=== PATIENT | male | born 1950 | race Caucasian/White ===

== ENCOUNTER → 2019-03-28 14:16 | Outpatient (BNVA) | payer MEDICARE, OTHER, SELFPAY | PROVIDERS: Family Provider Internal Medicine; PCP Internal Medicine; Visit Provider Urology | DX: N39.9 Disorder of urinary system, unspecified (principal); N32.9 Bladder disorder, unspecified; R33.8 Other retention of urine | CPT/HCPCS: 81001 ==

== ENCOUNTER → 2019-09-26 14:07 | Outpatient (BNVA) | payer MEDICARE, OTHER, SELFPAY | PROVIDERS: Family Provider Internal Medicine; PCP Internal Medicine; Visit Provider Urology | DX: N32.9 Bladder disorder, unspecified (principal) | CPT/HCPCS: 81001 ==

== ENCOUNTER → 2020-06-11 15:07 | Outpatient (BNVA) | payer MEDICARE, OTHER, SELFPAY | PROVIDERS: PCP Internal Medicine; Visit Provider Urology | DX: N32.9 Bladder disorder, unspecified (principal); N40.1 Benign prostatic hyperplasia with lower urinary tract symptoms; N20.1 Calculus of ureter | CPT/HCPCS: 81003 ==

== ENCOUNTER → 2020-12-04 08:56 | Outpatient (BNVA) | payer MEDICARE, OTHER, SELFPAY | PROVIDERS: PCP Internal Medicine; Visit Provider Internal Medicine Rheumatology | DX: M05.79 Rheumatoid arthritis with rheumatoid factor of multiple sites without organ or systems involvement (principal); Z79.899 Other long term (current) drug therapy; C44.221 Squamous cell carcinoma of skin of unspecified ear and external auricular canal; Z11.59 Encounter for screening for other viral diseases; Z11.1 Encounter for screening for respiratory tuberculosis; D75.9 Disease of blood and blood-forming organs, unspecified; Z71.85 Encounter for immunization safety counseling | CPT/HCPCS: 99204 ==

== ENCOUNTER → 2021-03-17 11:07 | Outpatient (BNVA) | payer MEDICARE, OTHER, SELFPAY | PROVIDERS: PCP Internal Medicine; Visit Provider Internal Medicine Rheumatology | DX: M05.79 Rheumatoid arthritis with rheumatoid factor of multiple sites without organ or systems involvement (principal); N40.1 Benign prostatic hyperplasia with lower urinary tract symptoms; N32.9 Bladder disorder, unspecified; Z79.899 Other long term (current) drug therapy; Z79.52 Long term (current) use of systemic steroids; Z71.85 Encounter for immunization safety counseling | CPT/HCPCS: 81003; 88112; 99214 ==

== ENCOUNTER → 2021-07-07 13:22 | Outpatient (BNVA) | payer MEDICARE, OTHER, SELFPAY | PROVIDERS: PCP Internal Medicine; Visit Provider Internal Medicine Rheumatology | DX: M05.79 Rheumatoid arthritis with rheumatoid factor of multiple sites without organ or systems involvement (principal); Z79.899 Other long term (current) drug therapy; M17.0 Bilateral primary osteoarthritis of knee; Z71.85 Encounter for immunization safety counseling | CPT/HCPCS: 99214 ==

== ENCOUNTER → 2021-10-22 13:53 | Outpatient (BNVA) | payer MEDICARE, OTHER, SELFPAY | PROVIDERS: PCP Internal Medicine; Visit Provider Internal Medicine Rheumatology | DX: M05.79 Rheumatoid arthritis with rheumatoid factor of multiple sites without organ or systems involvement (principal); Z79.899 Other long term (current) drug therapy; Z71.85 Encounter for immunization safety counseling; M17.0 Bilateral primary osteoarthritis of knee | CPT/HCPCS: 99214 ==

== ENCOUNTER → 2021-12-09 13:17 | Outpatient (BNVA) | payer MEDICARE, OTHER, SELFPAY | PROVIDERS: PCP Internal Medicine; Visit Provider Urology | DX: N40.1 Benign prostatic hyperplasia with lower urinary tract symptoms (principal); N32.9 Bladder disorder, unspecified | CPT/HCPCS: 52000; 81003 ==

== ENCOUNTER → 2022-02-24 14:29 | Outpatient (BNVA) | payer MEDICARE, OTHER, SELFPAY | PROVIDERS: PCP Internal Medicine; Visit Provider Internal Medicine Rheumatology | DX: M05.79 Rheumatoid arthritis with rheumatoid factor of multiple sites without organ or systems involvement (principal); Z79.899 Other long term (current) drug therapy; Z71.85 Encounter for immunization safety counseling; M17.0 Bilateral primary osteoarthritis of knee | CPT/HCPCS: 99214 ==

== ENCOUNTER → 2022-03-23 11:40 | Outpatient (BNVA) | payer MEDICARE, OTHER, SELFPAY | PROVIDERS: PCP Internal Medicine; Referring Provider Internal Medicine; Visit Provider Student in an Organized Health Care Education/Training Program | DX: M17.0 Bilateral primary osteoarthritis of knee (principal) | CPT/HCPCS: 73560; 73565; 99204 ==

== ENCOUNTER → 2022-05-26 14:39 | Outpatient (BNVA) | payer MEDICARE, OTHER, SELFPAY | PROVIDERS: PCP Internal Medicine; Visit Provider Internal Medicine Rheumatology | DX: M05.79 Rheumatoid arthritis with rheumatoid factor of multiple sites without organ or systems involvement (principal); Z79.899 Other long term (current) drug therapy; Z71.85 Encounter for immunization safety counseling; M17.0 Bilateral primary osteoarthritis of knee | CPT/HCPCS: 99214 ==

== ENCOUNTER 2022-05-27 13:38 | Outpatient (CLI) | payer MEDICARE, OTHER, SELFPAY ==
--- NOTE | 2022-05-27 14:00 | CT_ITS ---
WS: [id number] CT LEFT KNEE, NONCONTRAST TECHNIQUE: Noncontrast CT of the LEFT knee to include the LEFT hip and ankle. CLINICAL INFORMATION: Left DJD COMPARISON: None. DLP: 1019.[address] scans at [facility] use at least one of these dose optimization techniques: automated e xposure control; mA and/or kV adjustment per patient size (includes targeted exams where dose is matc hed to clinical indication); or iterative reconstruction. FINDINGS: Osteopenia. Advanced tricompartmental arthritis LEFT knee worse in the medial joint compartment with [id number] articulation. Hypertrophic changes along the joint line. Small suprapatellar effusion. H ypertrophic patella. Urine distended bladder. Small cystocele. Sigmoid diverticulosis. Bladder diverticuli along the RIGHT anterior dome of the bladder. These are present in 2019 on the pr ior CT. Largest diverticulum measures approximately 4.5 CM and appears new or progressed compared to previous. Associated wall thickening. This can be further evaluated with cystoscopy. Vascular calcifi cation. CT/CT knee LT HE IMPRESSION: Progressed bladder diverticuli the largest measuring 4.5 CM. Consid er further evaluation with cystoscopy. Associated diverticulum with wall thicke benjamín and enhancement. Images obtained for preoperative purposes.
== END 2022-05-27 13:39 | disposition home or self-care (01) ==
LOC: RAD 13:44
PROVIDERS: PCP Internal Medicine; Visit Provider Student in an Organized Health Care Education/Training Program
DX: M17.12 Unilateral primary osteoarthritis, left knee (principal)
CPT/HCPCS: 73700

== ENCOUNTER 2022-06-01 13:01 | Outpatient (CLI) | payer MEDICARE, OTHER, SELFPAY | END 2022-06-01 13:02 | disposition home or self-care (01) | PROVIDERS: PCP Internal Medicine; Visit Provider Student in an Organized Health Care Education/Training Program | DX: Z01.810 Encounter for preprocedural cardiovascular examination (principal); I49.8 Other specified cardiac arrhythmias | CPT/HCPCS: 93005 ==

== ENCOUNTER 2022-06-10 08:53 | Observation (INO) | payer MEDICARE, OTHER, SELFPAY ==
[2022-06-01 13:06] VITALS: BMI 29.3
--- NOTE | 2022-06-01 13:43 | ECG_ITS ---
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 Measurements Intervals [place] Rate: 70 P: 25 [place]: 134 QRS: 27 QRSD: 98 T: 52 QT: 405 QTc: 437 Interpretive Statements SINUS RHYTHM WITH MARKED SINUS ARRHYTHMIA Compared to ECG 03/09/2018 11:29:41 T-wave abnormality no longer present Electronically Signed On 06-01-2022 17:09:31 CDT by Arie Arellano M.D. [email or web address]/store/[id number]
[2022-06-01 14:03] LABS: Basophils % 0.7 %; Eosinophils % 0.5 %; Hemoglobin 14.9 g/dL (11.7-16.6); Lymphocytes # 0.9 10^3/uL (0.8-4.8); Lymphocytes % 15.7 %; Mean Corpuscular HGB Conc 33.1 g/dL (30.0-36.0); Mean Corpuscular Hemoglobin 33.3 pg (28.0-34.0); Mean Corpuscular Volume 100.4 fl (80-94); Monocytes # 0.5 10^3/uL (0.2-0.9); Monocytes % 9.1 %; Neutrophils # 4.31 10^3/uL (1.8-7.7); Neutrophils % 73.7 %; Nucleated Red Blood Cells % 0 %; Platelet Count 202 10^3/cmm (130-400); Red Blood Count 4.48 10^6/uL (4.1-5.3); Red Cell Distribution Width 12.4 % (12.1-15.1); White Blood Count 5.9 10^3/uL (4.0-10.0)
[2022-06-01 14:15] LABS: Add Urine Microscopic? YES; Bilirubin Urine Neg (Negative); Blood Urine 2+ (Negative); Glucose Urine UA Norm (Normal); Ketones Urine Negative (Negative); Leukocyte Esterase Urine Negative (Negative); Nitrate Urine Negative (Negative); Protein Urine Trace (Negative); Specific Gravity, Urine 1.015 (1.005-1.030); Urine Appearance Clear (CLEAR); Urine Color Yellow (Yellow); Urobilinogen Urine Norm (Negative); pH Urine 5 (5-7)
[2022-06-01 14:17] LABS: Add Urine Culture? No; Bacteria Urine TRACE /hpf
[2022-06-01 14:21] LABS: Anion Gap 13.8 (5-19); Blood Urea Nitrogen 19 mg/dL (8-23); Calcium 9.1 mg/dL (8.5-10.5); Carbon Dioxide 24 mmol/L (22-29); Chloride 103 mmol/L (98-107); Glucose 110 mg/dL (65-115); Osmolality Calculated 287 mOsm/kg (285-295); Potassium 3.8 mmol/L (3.5-5.1); Sodium 137 mmol/L (136-145)
--- NOTE | 2022-06-01 15:27 | P.ANESASSM_ITS ---
Pre-Anesthetic Assessment Height/Weight: Height 1.91 m Weight 106.594 kg Operation Date: 06/10/22 07:00 Proposed Procedures p Left total knee arthroplasty franchesca 74630,M17.12(Left) - Piero Martines DO Familial anesthetic complications: none Was Beta Yissel taken within 24 hours: N/A Was Clonidine taken within 24 hours: N/A Social No alcohol and No tobacco Exam alert, oriented x 3, clear to auscultation bilaterally and regular rate & rhythm Airway Submandibular: within normal limits Cervical ROM: within normal limits Mallampati: Class II Dentition: false GI Gastroesophageal Reflux Disease Metabolic Chronic steroids Musc/skel Osteoarthritis/DJD and Rheumatoid Arthritis Anesthetic Plan ASA status: 3 Anesthesia: Regional (specify below) (SAB with adductor blk) Medications/Allergies Home Medications Medication Instructions Recorded Confirmed Last Taken Type acetaminophen 650 mg 650 mg PO Q8H 03/28/19 06/01/22 06/01/22 History tablet,extended release (Tylenol Arthritis Pain) folic acid 800 mcg tablet 0.8 mg PO DAILY 03/28/19 06/01/22 06/01/22 History garlic 1,000 mg capsule 1,000 mg PO DAILY 03/28/19 06/01/22 06/01/22 History omega-3 fatty acids 1,000 mg 1,000 mg PO DAILY 03/28/19 06/01/22 06/01/22 History capsule (Fish Oil Concentrate) triamcinolone acetonide 0.1 % 1 applic topical DAILY PRN Dry Skin 12/04/20 06/01/22 05/31/22 History topical cream cholecalciferol (vitamin D3) 10 10 mcg PO DAILY 03/17/21 06/01/22 06/01/22 History mcg (400 unit) capsule tamsulosin 0.4 mg capsule 0.4 mg PO QDAY #90 caps 06/24/21 06/01/22 05/31/22 Rx tramadol 50 mg tablet 50 mg PO TID PRN moderate to 10/22/21 06/01/22 05/30/22 Rx severe pain #60 tabs etanercept 50 mg/mL (1 mL) 50 mg SUBCUT Q7D #12 mL 05/26/22 06/01/22 05/31/22 Rx subcutaneous pen injector (Enbrel SureClick) hydroxychloroquine 200 mg tablet See Rx Instructions .Route 05/26/22 06/01/22 05/31/22 Rx .COMPLEX #60 tabs methotrexate sodium 2.5 mg tablet See Rx Instructions .Route 05/26/22 06/01/22 05/31/22 Rx .COMPLEX #24 tabs pantoprazole 40 mg tablet,delayed See Rx Instructions .Route 05/26/22 06/01/22 06/01/22 Rx release .COMPLEX #90 tabs prednisone 2.5 mg tablet 2.5 mg PO DAILY #90 tabs 05/26/22 06/01/22 06/01/22 Rx prednisone 20 mg tablet See Rx Instructions PO .COMPLEX 05/26/22 06/01/22 05/30/22 Rx PRN joint pain flare #30 tabs Allergies Allergy/AdvReac Type Severity Reaction Status Date / Time amoxicillin Allergy unknown Verified 06/01/22 13:00 [facility] Anesthesia Medical History Degenerative joint disease of right knee High risk medication use Immunization counseling Lesion of bladder Osteoarthritis of knees, 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 Father , AT AGE 36-BRAIN TUMOR No problems noted. Other Cancer Diabetes Hypertension Lung disease Suicide Denies family history of Rheumatoid arthritis Lupus CAD (coronary artery disease) Chronic kidney disease (CKD) Stroke Social History Smoking and tobacco status: never smoked Alcohol intake: never Adopted: No Lives independently: No Household members: spouse Marital status: Current occupational status: retired History of recent travel: No Data Anesthesia 06/01/22 13:23 06/01/22 13:23 Short CBC 06/01/22 Range/Units 13:23 WBC 5.9 (4.0-10.0) 10^3/uL Hgb 14.9 (11.7-16.6) g/dL Hct 45.0 (42.0-52.0) % MCV 100.4 H (80-94) fl Plt Count 202 (130-400) 10^3/cmm Neut % (Auto) 73.7 % Neut # (Auto) 4.31 (1.8-7.7) 10^3/uL BMP 06/01/22 13:23 Sodium 137 Potassium 3.8 Chloride 103 Carbon Dioxide 24 BUN 19 Creatinine 0.9 Glucose 110 Calcium 9.1 Urine 06/01/22 Range/Units 13:14 Urine Color Yellow (Yellow) Urine Appearance Clear (CLEAR) Urine pH 5 (5-7) Ur Specific [place] 1.015 (1.005-1.030) Urine Protein Trace (Negative) Urine Glucose (UA) Norm (Normal) Urine Ketones Negative (Negative) Urine Nitrate Negative (Negative) Urine Bilirubin Neg (Negative) Ur Leukocyte Esterase Negative (Negative) Urine RBC 5-10 H (0-2) /hpf Urine WBC 5-10 H (0-5) /hpf Blood Bank 06/01/22 13:23 Blood Type A Positive Rho(D) Type Positive Antibody Screen Negative Cardiac Studies: No Data to Display
[2022-06-10] VITALS (15 sets, daily range): BP systolic 94–136; BP diastolic 56–78; PULSE 57–103; RESP 14–21; TEMP 36.1–36.5; O2SAT 92–100
--- NOTE | 2022-06-10 05:52 | ECG_ITS ---
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 Measurements Intervals [place] Rate: 69 P: 78 [place]: 164 QRS: 55 QRSD: 107 T: 51 QT: 445 QTc: 477 Interpretive Statements SINUS RHYTHM PROLONGED QT INTERVAL Compared to ECG 06/01/2022 13:43:06 Prolonged QT interval now present Sinus arrhythmia no longer present Electronically Signed On 06-10-2022 11:02:18 CDT by Arie Arellano M.D. [email or web address] [facility].[employer]/store/OM/[id number]/[id number]
[2022-06-10] MEDS: lactated ringers 500 ML IV (06:40)
[2022-06-10] MEDS: sodium chloride 0.9% 1,000 ML 30 ML IV (06:40)
[2022-06-10] MEDS: ketorolac 30 mg/mL INJ IVP (06:40)
[2022-06-10] MEDS: acetaminophen 1,000 MG/100 ML PIGGYBACK 400 MG IV ×3 (06:41→23:21)
[2022-06-10] MEDS: vancomycin 1,500 MG/300 ML PIGGYBACK 200 MG IV (06:41)
--- NOTE | 2022-06-10 06:57 | PM.HP ---
Providers/Chief Complaint Admitting Physician: Piero Martines DO Primary Care Provider: True Bean DO Chief Complaint: M17.12 History of Present Illness Jhonatan Lewis is a 71 year old male presents today for a left total knee arthroplasty. He is failed conservative treatment for left knee degenerative joint disease. 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 No new issues at this time denies any fevers chills chest pain shortness of breath nausea or vomiting or any urinary symptoms. All questions have been answered we detailed out the risk benefits alternatives of surgical and nonsurgical treatment options understanding his risk of surgery he agrees to proceed with left total knee arthroplasty?Nayan robotic assisted. All questions answered. Review of Systems General: Reports: 10 or more systems reviewed and unremarkable except in HPI and below Medications/Allergies Home Medications Medication Instructions Recorded Confirmed Last Taken Type acetaminophen 650 mg 650 mg PO Q8H 03/28/19 06/01/22 06/01/22 History tablet,extended release (Tylenol Arthritis Pain) folic acid 800 mcg tablet 0.8 mg PO DAILY 03/28/19 06/01/22 06/01/22 History garlic 1,000 mg capsule 1,000 mg PO DAILY 03/28/19 06/01/22 06/01/22 History omega-3 fatty acids 1,000 mg 1,000 mg PO DAILY 03/28/19 06/01/22 06/01/22 History capsule (Fish Oil Concentrate) triamcinolone acetonide 0.1 % 1 applic topical DAILY PRN Dry Skin 12/04/20 06/01/22 05/31/22 History topical cream cholecalciferol (vitamin D3) 10 10 mcg PO DAILY 03/17/21 06/01/22 06/01/22 History mcg (400 unit) capsule tamsulosin 0.4 mg capsule 0.4 mg PO QDAY #90 caps 06/24/21 06/01/22 05/31/22 Rx etanercept 50 mg/mL (1 mL) 50 mg SUBCUT Q7D #12 mL 05/26/22 06/01/22 05/31/22 Rx subcutaneous pen injector (Enbrel SureClick) hydroxychloroquine 200 mg tablet See Rx Instructions .Route 05/26/22 06/01/22 06/10/22 05:00 Rx .COMPLEX #60 tabs methotrexate sodium 2.5 mg tablet See Rx Instructions .Route 05/26/22 06/01/22 05/31/22 Rx .COMPLEX #24 tabs pantoprazole 40 mg tablet,delayed See Rx Instructions .Route 05/26/22 06/01/22 06/10/22 05:00 Rx release .COMPLEX #90 tabs prednisone 2.5 mg tablet 2.5 mg PO DAILY #90 tabs 05/26/22 06/01/22 06/01/22 Rx prednisone 20 mg tablet See Rx Instructions PO .COMPLEX 05/26/22 06/01/22 05/30/22 Rx PRN joint pain flare #30 tabs tramadol 50 mg tablet 50 mg PO TID PRN moderate to 06/02/22 06/10/22 06/10/22 05:00 Rx severe pain #60 tabs Allergies Allergy/AdvReac Type Severity Reaction Status Date / Time amoxicillin Allergy unknown Verified 06/01/22 13:00 PFSH Acute PFSH: Medical History Degenerative joint disease of right knee High risk medication use Immunization counseling Lesion of bladder Osteoarthritis of knees, 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 Father , AT AGE 36-BRAIN TUMOR No problems noted. Other Cancer Diabetes Hypertension Lung disease Suicide Denies family history of Rheumatoid arthritis Lupus CAD (coronary artery disease) Chronic kidney disease (CKD) Stroke Social History Smoking and tobacco status: never smoked Alcohol intake: never Substance/Drug Use: never Adopted: No Lives independently: No Household members: spouse Marital status: Current occupational status: retired History of recent travel: No Vitals/I&O/Wt Last Vital Signs Temp 97.7 F 06/10/22 06:22 Pulse 80 06/10/22 06:22 Resp 18 06/10/22 06:22 BP 136/78 04/26/23 06:22 Pulse Ox 95 06/10/22 06:22 O2 Del Method Room Air 06/10/22 06:22 Physical Exam Narrative: Examination bilateral knees there are no gross deformities of the hips or ankles. The range of motion of both hips and ankles are normal and no tenderness to palpation. Left knee show a boggy effusion. There is severe tenderness to palpation primarily over the medial compartment. Crepitance is felt with range of motion. There is patellafemoral crepitance as well. There is a negative lachmans test and the left knees are stable to varus and valgus stress testing. There is a varus alignment grossly of 10 degrees that is correctable with stress examination.? Patient is able to wiggle toes plantarflex and dorsiflex ankle.? Sensation intact light touch distally. Const: COMMON NORMALS: no acute distress, average body habitus and healthy appearing HENMT: COMMON NORMALS: normocephalic and atraumatic Resp: COMMON NORMALS: normal respiratory effort and No retractions Cardio: PERIPHERAL PULSES: Peripheral pulses 2+ throughout Data 06/01/22 13:23 06/01/22 13:23 Xray Ortho: My impression: X-rays of the left knee demonstrating severe degenerative joint disease of the knee with significant most pronounced medial joint space collapse and [id number] arthritis evidence of tricompartmental osteoarthritis noted.? A&P Assessment and plan (1) Degenerative joint disease of right knee: Plan Plan to proceed with left total knee arthroplasty today. He is over 90 days out from his injection he is clear to preoperative process labs are stable. No acute changes in his HPI we detailed out the risk benefits complication alternatives to surgical nonsurgical treatment options. Understanding his risk of surgery he agrees to proceed with left total knee arthroplasty. All questions answered at this time. Attestations Medical Necessity Statement*: Ongoing care left total knee arthroplasty Coding Level of Care Code Acute Code for [facility] Diagnoses Degenerative joint disease of right knee M17.11
[2022-06-10] MEDS: clindamycin 600 MG/50 ML PREMIX 100 MG IV (07:15)
[2022-06-10] MEDS: EPINEPHrine 1 mg/mL INJ XX (07:51)
[2022-06-10] MEDS: tranexamic acid 1,000 mg/10mL SDV 1000 MG XX (07:51)
[2022-06-10] MEDS: ketorolac 30 mg/mL INJ XX (07:51)
--- NOTE | 2022-06-10 08:31 | P.ANESUD_ITS ---
Pre-Anesthetic Update Pre-Anesthetic Assessment: Date of Surgery/Procedure: 06/10/22 Preop Mita gnosis: Left knee degenerative joint disease Proposed Procedure: Operation Date: 06/10/22 07:00 Proposed Procedures p Left total knee arthroplasty franchesca 16131,M17.12(Left) - Piero Christian, DO Any changes to Pre-Anesthetic Assessment?: No Last Intake: Intake Last Liquid Date 06/09/22 Last Liquid Time 21:00 Last Solid Date 06/09/22 Last Solid Time 20:30 Vitals: Temperature 97.7 F 06/10/22 06:22 Temperature Source Temporal Artery S can 06/10/22 06:22 Pulse Rate 80 06/10/22 06:22 Respiratory Rate 18 06/10/22 06:22 Blood Pressure 136/78 06/10/22 06:22 Blood Pressure Denisa n 97 06/10/22 06:22 Pulse Oximetry 95 06/10/22 06:22 Oxygen Delivery Me thod Room Air 06/10/22 06:22 Exam: Pre-Anes Outpt Exam: alert, oriented x 3, clear to auscultation bilaterally and regular rate & rhythm Cardiac Studies: No Data to Display Anesthesia Procedures Nerve Block: Nerve Block 1: Main Anesthesia: spinal anesthesia block Time Out Performed: Yes Consent: requested by attending/covering physician, from patient, risks and benefits reviewed and patient agrees to proceed Nerve block location: adductor canal (left) Anesthesia monitors applied: pulse oximetry, EKG, BP cuff and oxygen Nerve block position: supine Anesthetic Used: ropivicaine 0.5% Amount of anesthesia used (mL): 20 Ultrasound used to: recognize landmarks Nerve Stimulator Used?: No Interscalene/Femoral BLK: 2 stimuplex 22 g needle used for position and inplane approach Injection: neg aspiration of heme Patient Tolerated Procedure: well Complications: none
--- NOTE | 2022-06-10 09:04 | P.OP_ITS ---
Brief Operative Note Date of procedure: 06/10/22 Pre-op diagnosis: Left knee degenerative joint disease Post-op diagnosis: same Procedure Done: Left total knee arthroplasty, cemented?Nayan robotic assisted Surgeon: Piero Martines Estimated blood loss (mL): 25 Complications: None Post-op Plan: Patient taken to PACU in stable condition recovering well spinal anesthesia still in effect Angela catheter still in place. Plan to discontinue Angela later today versus tomorrow morning. Patient receive appropriate discharge inst ructions as well as pain medication postoperatively. Will be admitted to the floor postoperatively internal medicine on board for medical management. PT/OT, postoperative TXA postoperative antibiotics, postoperative DVT prophylaxis, weightbearing as tolerated to left lower extremity, encourage knee range of motion. Ice and elevate as needed for pain and swelling Change dressing as needed. Orthopedics will continue to follow on the floor during hospitalization Condition: stable Disposition: floor Coding Level of Care Code Acute Code for [facility]
--- NOTE | 2022-06-10 09:04 | PM.PACU ---
PACU note Narrative: Patient taken to PACU in stable condition spinal anesthesia still in effect unable assess motor or sensory. Angela catheter in place. Distal pulses are palpable. Toes warm well-perfused dressing on in place clean dry and intact compartment soft compressible. Exam: awake Disposition: admitted
--- NOTE | 2022-06-10 09:05 | P.OP_ITS ---
Operative Report Date of procedure: June 10, 2022 Pre-op diagnosis: Preop Diagnosis Left knee degenerative joint disease Procedure: Post-op diagnosis: Same Procedure done: Left total knee arthroplasty, cemented?robotic assisted Nayan Implants: [place] triathlon size 7 femur?CR cemented [place] triathlon size 7 tibia universal baseplate cemented H[place]ha triathlon asymmetric patella size 38 mm [place] triathlon polyethylene 10 mm Surgeon: Piero Martines DO Estimated blood loss: 25 mL Tourniquet time: 60minutes IV fluids: 1200 mL Urine output: 300mL Complications: None Condition: stable Disposition: floor Brief History: Jhnoatan is a pleasant 71-year-old male established in my practice with chronic left knee degenerative joint disease.? pts has failed conservative treatment.? We talked about continued conservative approach versus operative intervention for left knee given tricompartmental degenerative changes would recommend a left total knee arthroplasty as patient has failed conservative treatment.? Through shared decision making patient would like to proceed with this. ? We talked about continued conservative treatment and surgical intervention as far as the risk benefits complications alternatives surgical and nonsurgical treatment options.? At this point time understanding pts risks with surgery pt agrees to proceed with surgical intervention.? Once again? risk with surgery include but are not limited to make it better make it worse blood clot, heart attack, stroke, on the table, infection, injury to nerves or vessels, persistent pain, arthrofibrosis, implant failure.? Patient seen his independent crop consultant and has held his Enbrel 1 week prior to surgery whichpt has been off of and will hold f or 2 weeks postoperatively. Understanding these risks pt agrees to proceed with surgical intervention consent was obtained in the office.? All questions answered. Procedure: Patient was seen and evaluated in the preoperative holding area.? Consent was reviewed and signed with patient with plan for left total knee arthroplasty.? All questions answered.? Correct extremities marked.? Patient seen and evaluated by the anesthesia department and once cleared for surgery was taken back to the operative suite.? Patient was placed into a supine position on the OR table.? All bony prominences were well-padded.? Patient was appropriately secured to the bed.? Patient underwent anesthesia per the anesthesia department.? Patient received spinal anesthesia and Angela catheter was placed.? A nonsterile tourniquet was applied to the left thigh.? At this point in time a final timeout performed.? Patient received appropriate preoperative antibiotics and TXA. Next the the left lower extremity was then prepped and draped in standard orthopedic fashion.?Esmarch tourniquet was used exsanguinate the left lower extremity.? Tourniquet was insufflated to 300 mmHg. A standard anterior incision was made over midline of the knee.? Sharp scalpel excision through skin and subcutaneous tissue full-thickness skin flaps were made.? Fascia was elevated off of the extensor retinaculum was stable with medial parapatellar arthrotomy was then made.? The performed standard sequential releases.? Visualization of all 3 compartments was found to have eburnated bone in all 3 compartments with osteophyte formation.? Severe medial space collapse and eburnated bone was appreciated. Next the the patella was then stuffed laterally and the knee was then flexed.? Varghese was placed superiorly and medial around the anterior aspect of the femur this was freed of synovium and I subsequently then placed by 2 femur pins to establish my femur arrays for the Nayan robot.? These were then placed bicortically and? femur array was then appropriately secured with appropriate visualization.? Next attention was turned towards the tibial rays.? These were then drilled sequentially bicortically in parallel fashion and intraincisional.? I then placed my guide as well as my tibial array on in place.? This was appropriately secured and had excellent visualization with the Nayan robot.? Next the tibial checkpoint as well as femur checkpoint were then placed.? At this point time I then subsequently established my head center as well as my medial and lateral malleoli as well as my checkpoints.? Next utilizing standard Nayan technology I then mapped out the appropriate points and confirmation points around the femur as well as the tibia in standard fashion.? Once this was then done I then removed all osteophytes in preparation for dynamic testing.? All osteophytes were removed as well as I removed the ACL and PCL as this was significantly degenerative and plan for ultracongruent poly, anterior horn of the lateral meniscus was excised.? At this point time the knee was brought into full extension and we performed our standard evaluation of our gap balancing stressing? ligaments and extension as well as flexion appropriate adjustments were made to have appropriate gap balancing in both flexion and extension.? Made appropriate adjustments for appropriate gap balancing altering our femoral and tibial cuts.? We get a preoperative plan evaluating our implants which was a size 7 femur and a size 7 tibia.? Next we brought in the Nayan robot and sequentially made our femur cuts.? All? bony cuts were then removed.? Finally we made our tibial cut.? Once this was done a standard PCL retractor was then placed into this position I excised the medial and lateral meniscus.? The tibial cut was then subsequently removed all excess bony debris was removed.?? I then utilized a lamina culinary arts instructor and remove the posterior osteophytes.? At this point time sized the tibia and confirmed this was a size 7.? I utilized our blunt probe to establish rotation of tibial implant using [employer] robot technology.? Once this was done I then placed my tibia size 7 trial in appropriate position and then subsequently placed tibial pins to hold this into place placed a size 10 mm poly as well as a size 7 femur which was appropriately impacted in place knee was then subsequently brought into extension.? Patient was found to achieve full extension and was balance varus valgus in extension as well as mid flexion and when brought up to flexion patient had excellent stability and appropriate gap balancing both medially and laterally.? Once this was done I had excellent balance gaps in flexion and extension with varus and valgus stresses.? At this point I was satisfied with these implants I called open the implants and these were then verified and opened on the back table size 7 tibia, size 7 femur,? size 10 mm polythickness.? We did confirm appropriate gap balancing and stresses as well as alignment utilizing? Nayan and were satisfied with this plan.? ?At this point time with my trials in place I then towel clip the patella everted this made appropriate measurements subsequently utilizing freehand technique performed by patellar resurfacing this was confirmed to be appropriate resection and subsequently sized to be a 38mm asymmetric.?? drill peg guides were then clamped and appropriate position and appropriate position in the patella for appropriate tracking and parallel with the joint.? Pegs were drilled trial implant was placed and the knee was then subsequently ranged and found to have excellent patellar tracking.? Femur pegs were then drilled.?All checkpoints as well as guidepins and arrays were removed and appropriate counts made. Satisfied with our tibial placement rotation I then utilized the keel punch and prepped the tibia.? At this point time all of our trial implants were removed.? ? The wound bed? was thoroughly irrigated and dried and prepped for cementation.? Cement was mixed on the back table.? Once cement was ready this was then covered onto the tibia and the tibial baseplate was then impacted and all excess cement was removed.? Next the polyethylene was then impacted into place on the tibial baseplate.? Next cement was placed onto the femur as well as under the femur implants and impacted in to place and all excess cement was removed.? Knee was taken into full extension? to clear all excess cement was removed.? Warm saline was placed over the joint.? I then towel clip patella and dried for cementation. cemented the patella implant into place.? This was all clamped and the cement was allowed to cure.? Holding axial load pressure as well as maintaining full extension and the cement was allowed to cure and all excess cement was removed.? Thorough irrigation performed with pulse lavage.? I then placed periarticular injection while the cement was curing.? Once cured the knee was taken through range of motion and had excellent stability and gaps balances.? Tourniquet was then deflated.? Once tourniquet was deflated hemostasis satisfactory with electrocautery.? Next I then subsequently closed the capsule with Ethibond suture as well as a running strata fix suture.? Knee was then taken through range of motion 30 times.? Next the skin was then closed in layered fashion of running stratifix sutures of deep and subcutenous tissue and skin.? Patient was closed in flexion with Prineo for the skin.? Incision was covered with OpSite, ABDs soft roll and Isaias wrap.? Patient was then awakened from anesthesia and taken to PACU in stable condition. Disposition: Patient taken to PACU in stable condition will be admitted to the floor for pain control PT/OT weight-bear as tolerated left lower extremity dressing changes as needed, DVT prophylaxis.?Pain control. Patient will receive appropriate postoperative antibiotics. patient will be seen today by the internal medicine team for medical management.? Patient will follow up with the office in 2 weeks.? Patient understands agrees with current plan.? All questions answered.
--- NOTE | 2022-06-10 09:09 | P.CONIM_ITS ---
Providers/Reason For Consult Consulting Physician/Specialty*: Manuel Olson MD, hospitalist Reason for Consult*: Medical management Requesting Physician: Dr. Martines Attending Physician: Piero Martines DO Primary Care Provider: True Bean DO History of Present Illness History of Present Illness Jhonatan Lewis is a 71 year old male who underwent left total knee arthroplasty today. He has underlying rheumatoid arthritis, GERD, history of carcinoma in situ of the bladder, BPH. I have been consulted for medical management. No complications with surgery. Patient himself denies any complaints. His pain is controlled following surgery. Review of Systems General: Reports: 10 or more systems reviewed and unremarkable except in HPI and below Card: Denies: chest pain Resp: Denies: dyspnea GI: Denies: hematochezia or melena Medications/Allergies Home Medications Medication Instructions Recorded Confirmed Last Taken Type acetaminophen 650 mg 650 mg PO Q8H 03/28/19 06/01/22 06/01/22 History tablet,extended release (Tylenol Arthritis Pain) folic acid 800 mcg tablet 0.8 mg PO DAILY 03/28/19 06/01/22 06/01/22 History garlic 1,000 mg capsule 1,000 mg PO DAILY 03/28/19 06/01/22 06/01/22 History omega-3 fatty acids 1,000 mg 1,000 mg PO DAILY 03/28/19 06/01/22 06/01/22 History capsule (Fish Oil Concentrate) triamcinolone acetonide 0.1 % 1 applic topical DAILY PRN Dry Skin 12/04/20 06/01/22 05/31/22 History topical cream cholecalciferol (vitamin D3) 10 10 mcg PO DAILY 03/17/21 06/01/22 06/01/22 History mcg (400 unit) capsule tamsulosin 0.4 mg capsule 0.4 mg PO QDAY #90 caps 06/24/21 06/01/22 05/31/22 Rx etanercept 50 mg/mL (1 mL) 50 mg SUBCUT Q7D #12 mL 05/26/22 06/01/22 05/31/22 Rx subcutaneous pen injector (Enbrel SureClick) hydroxychloroquine 200 mg tablet See Rx Instructions .Route 05/26/22 06/01/22 06/10/22 05:00 Rx .COMPLEX #60 tabs methotrexate sodium 2.5 mg tablet See Rx Instructions .Route 05/26/22 06/01/22 05/31/22 Rx .COMPLEX #24 tabs pantoprazole 40 mg tablet,delayed See Rx Instructions .Route 05/26/22 06/01/22 06/10/22 05:00 Rx release .COMPLEX #90 tabs prednisone 2.5 mg tablet 2.5 mg PO DAILY #90 tabs 05/26/22 06/01/22 06/01/22 Rx prednisone 20 mg tablet See Rx Instructions PO .COMPLEX 05/26/22 06/01/22 05/30/22 Rx PRN joint pain flare #30 tabs tramadol 50 mg tablet 50 mg PO TID PRN moderate to 06/02/22 06/10/22 06/10/22 05:00 Rx severe pain #60 tabs Allergies Allergy/AdvReac Type Severity Reaction Status Date / Time amoxicillin Allergy unknown Verified 06/01/22 13:00 Current Medications Generic Name Dose Route Start Last Admin Trade Name Freq PRN Reason Stop Dose Admin Sodium Chloride 1,000 mls @ 30 mls/hr 06/10/22 06:00 06/10/22 06:40 Sodium Chloride 0.9% IV 06/11/22 05:59 30 mls/hr .Q24H ARMIN Administration PFSH Acute PFSH: Medical History BPH NOS w ur obs/LUTS Degenerative joint disease of right knee GERD (gastroesophageal reflux disease) High risk medication use Immunization counseling Lesion of bladder Osteoarthritis of knees, 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 Father , AT AGE 36-BRAIN TUMOR No problems noted. Other Cancer Diabetes Hypertension Lung disease Suicide Denies family history of Rheumatoid arthritis Lupus CAD (coronary artery disease) Chronic kidney disease (CKD) Stroke Social History Smoking and tobacco status: never smoked Alcohol intake: never Substance/Drug Use: never Adopted: No Lives independently: No Household members: spouse Marital status: Current occupational status: retired History of recent travel: No Vitals/I&O/Wt Last Vital Signs Temp 97.7 F 06/10/22 06:22 Pulse 80 06/10/22 06:22 Resp 18 06/10/22 06:22 BP 136/78 06/10/22 06:22 Pulse Ox 95 06/10/22 06:22 O2 Del Method Room Air 06/10/22 06:22 06/09/22 06/10/22 06/10/22 22:59 06:59 14:59 Intake Total 100 / 100 660 / 660 Balance 100 / 100 660 / 660 Physical Exam Narrative: General exam is a white male, in postoperative suite, without complaints. He is alert and oriented. HEENT: Atraumatic normocephalic Neck is supple no lymphadenopathy thyromegaly Cardiovascular regular rate and rhythm without murmur Lungs clear no wheezing, crackles Abdomen is soft with positive bowel sounds Extremities no cyanosis clubbing or edema, dressing present left knee. He can dorsiflex without difficulty. Skin no rash Neuro no obvious focal deficits Urinary Catheter Management: Angela: Cath Placed During This Visit: yes Urinary Catheter Date of Insertion: 06/10/22 Urinary Catheter Time of Insertion: 07:20 Data 06/01/22 13:23 06/01/22 13:23 Other Labs: Calcium 9.1 Urinalysis reviewed as well. EKG reviewed from 06/01 demonstrating normal sinus rhythm, sinus arrhythmia, normal axis, nonspecific ST-T wave changes Reviewed CT of knee, which demonstrated arthritic disease. Also demonstrated some thickening of bladder with large diverticulum, 4.5 cm. He has visited urology before, last visit that I can document in November where he is followed for carcinoma in situ A&P Assessment and plan (1) Left knee DJD: He is directly postoperative left knee total arthroplasty. He is doing well. There are no complications noted. CBC, BMP tomorrow to evaluate for postoperative anemia, renal function on IV fluids Further directives with rehabilitation per orthopedic surgeon (2) Seropositive rheumatoid arthritis of multiple sites: Holding etanercept, methotrexate currently. Continue hydroxychloroquine, prednisone. 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 (3) BPH NOS w ur obs/LUTS: Continue Flomax Plan Other medical problems as listed in past medical history Apixaban is being used for DVT prophylaxis. Thank you for this consultation. Consult Attestations Medical Necessity Statement: As per primary Diagnoses Left knee DJD M17.12 Seropositive rheumatoid arthritis of multiple sites M05.79 BPH NOS w ur obs/LUTS N40.1 Time Spent (min) 38
--- NOTE | 2022-06-10 09:30 | XR_ITS ---
WS: [id number] Exam: XR knee LT 1-2V 26083 Date/Time of Exam: 06/10/2022 9:40 AM Reason For Exam: L TKA postop Comparison 03/23/2022. A total knee prosthesis has been placed and appears to be in excellent position. Postoperative change s in the adjacent soft tissues. XR/XR knee LT 1-2V [id number] IMPRESSION: 1. Left total knee replacement in excellent position.
[2022-06-10] MEDS: pantoprazole DR 40 mg Tablet PO (10:32)
[2022-06-10] MEDS: hydroxychloroquine 200 mg Tablet PO ×2 (10:32→17:17)
[2022-06-10] MEDS: tamsulosin 0.4 mg Capsule PO (10:33)
[2022-06-10] MEDS: lactated ringers 1,000 ML 100 ML IV ×2 (10:33→20:20)
[2022-06-10] MEDS: TRAMadol 50 mg Tablet PO (10:45)
--- NOTE | 2022-06-10 13:24 | ANE.PACU2 ---
Inpatient post-anesthesia follow up: Airway intact: Yes Vital signs: Temperature 97.0 F Pulse Rate 77 Respiratory Rate 18 Blood Pressure 132/75 Pulse Oximetry 99 Oxygen Delivery Me thod Room Air Oxygen Flow Rate Fraction of Inspir ed Oxygen Hydration adequate: Yes Nausea and vomiting: No Pain level: 1 Mental status: Baseline
[2022-06-10] MEDS: chlorhexidine gluconate 0.12% Btl 473 mL 30 ML MUCOUS MEM ×3 (13:32→20:26)
[2022-06-10] MEDS: clindamycin 900 MG/50 ML PREMIX 100 MG IV ×2 (15:08→23:48)
[2022-06-10] MEDS: mupirocin oint 22 gm 1 APPLIC NASAL (17:16)
[2022-06-10] MEDS: docusate sodium 100 mg Capsule PO (17:17)
[2022-06-10] MEDS: calcium carbonate 500 mg Chew Tablet 1000 MG PO (17:17)
[2022-06-10] MEDS: iron polysaccharide complex 150 mg Capsule PO (17:17)
[2022-06-10] MEDS: ketorolac 30 mg/mL INJ 15 MG IVP (22:44)
--- NOTE | 2022-06-11 00:24 | PC.NURSE ---
Pt having trouble voiding after catheter removal post surgery. Only able to void 150ml. PVR >650ml. Phys called and order was given to straight cath one time, bladder scan as needed. Pt stated he has prostate issues and has seen Urology in the past.
--- NOTE | 2022-06-11 01:30 | PC.NURSE ---
Straight cath initiated with two nurses at bedside using sterile technique. Pt tolerated well, no issues advancing 14fr coude catheter. >800ml dark yellow clear urine obtained.
[2022-06-11 04:00] VITALS: BP 122/63; PULSE 64; RESP 16; TEMP 36.8; O2SAT 95
[2022-06-11 05:07] LABS: Basophils % 0.6 %; Eosinophils # 0.1 10^3/uL (0.0-0.8); Eosinophils % 1.5 %; Hematocrit 36.3 % (42.0-52.0); Hemoglobin 11.6 g/dL (11.7-16.6); Lymphocytes # 0.7 10^3/uL (0.8-4.8); Lymphocytes % 10.5 %; Mean Corpuscular Volume 103.1 fl (80-94); Mean Platelet Volume 9.7 fL (7.4-10.4); Monocytes # 0.8 10^3/uL (0.2-0.9); Monocytes % 12.2 %; Neutrophils # 4.94 10^3/uL (1.8-7.7); Nucleated Red Blood Cells % 0 %; Platelet Count 147 10^3/cmm (130-400); Red Blood Count 3.52 10^6/uL (4.1-5.3); Red Cell Distribution Width 12.7 % (12.1-15.1); White Blood Count 6.6 10^3/uL (4.0-10.0)
[2022-06-11] MEDS: TRAMadol 50 mg Tablet PO ×2 (05:07→10:40)
[2022-06-11] MEDS: lactated ringers 1,000 ML 100 ML IV (05:07)
[2022-06-11 05:28] LABS: Anion Gap 12.2 (5-19); Blood Urea Nitrogen 14 mg/dL (8-23); Calcium 8.5 mg/dL (8.5-10.5); Carbon Dioxide 24 mmol/L (22-29); Chloride 103 mmol/L (98-107); Glucose 94 mg/dL (65-115); Osmolality Calculated 280 mOsm/kg (285-295); Potassium 4.2 mmol/L (3.5-5.1); Sodium 135 mmol/L (136-145)
[2022-06-11] MEDS: acetaminophen 1,000 MG/100 ML PIGGYBACK 400 MG IV (06:25)
[2022-06-11] MEDS: clindamycin 900 MG/50 ML PREMIX 100 MG IV (06:39)
[2022-06-11 08:16] VITALS: BP 126/70; PULSE 85; RESP 18; TEMP 36.7; O2SAT 96
--- NOTE | 2022-06-11 08:21 | PM.PN ---
Subjective Subjective: No issues overnight. Pain under control. Patient has been up and walking with therapy. Medications: Reviewed: Yes Vitals/I&O/Wt Last Vital Signs Temp 98.3 F 06/11/22 04:00 Pulse 64 06/11/22 04:00 Resp 16 06/11/22 04:00 BP 122/63 06/11/22 04:00 Pulse Ox 95 06/11/22 04:00 O2 Del Method Room Air 06/11/22 04:00 06/10/22 06/11/22 06/11/22 22:59 06:59 14:59 Intake Total 1650 / 4365.5 1028.333 / 5393.833 150 / 150 Output Total 500 / 825 1100 / 1925 Balance 1150 / 3540.5 -71.667 / 3468.833 150 / 150 Physical Exam Narrative: General exam no distress Cardiovascular regular rate and rhythm without murmur Lungs clear no wheezing, crackles Extremities no cyanosis clubbing or edema, dressing present left knee. He can dorsiflex without difficulty. Urinary Catheter Management: Angela: Cath Placed During This Visit: yes, but has since been removed by the nurse Reason for Continuing Indwelling Catheter: Decision to DC Catheter Urinary Catheter Date of Insertion: 06/10/22 Urinary Catheter Time of Insertion: 07:20 Date Urinary Catheter Removed: 06/10/22 Time Urinary Catheter Discontinued: 13:00 Data 06/11/22 04:56 06/11/22 04:56 A&P Assessment and plan (1) Left knee DJD: Postoperative day #1 status post left knee total arthroplasty. He is doing well. Laboratory reviewed and no concerns. Ds Further directives with rehabilitation per orthopedic surgeon (2) Seropositive rheumatoid arthritis of multiple sites: Holding etanercept, methotrexate currently. Continue hydroxychloroquine, prednisone. Some of this was clarified with his exercise scientist by orthopedic surgery. (3) BPH NOS w ur obs/LUTS: Continue Flomax Plan Other medical problems as listed in past medical history Apixaban is being used for DVT prophylaxis. Thank you for this consultation. No medical contraindications to discharge. Attestations Medical Necessity Statement*: As per primary Diagnoses Left knee DJD M17.12 Seropositive rheumatoid arthritis of multiple sites M05.79 BPH NOS w ur obs/LUTS N40.1 Time Spent (min) 15
[2022-06-11 08:42] VITALS: RESP 16
[2022-06-11] MEDS: oxyCODONE 5 mg IR Tab/Cap PO (08:42)
[2022-06-11] MEDS: chlorhexidine gluconate 0.12% Btl 473 mL 30 ML MUCOUS MEM (08:42)
[2022-06-11] MEDS: iron polysaccharide complex 150 mg Capsule PO (08:43)
[2022-06-11] MEDS: calcium carbonate 500 mg Chew Tablet 1000 MG PO (08:43)
[2022-06-11] MEDS: hydroxychloroquine 200 mg Tablet PO (08:43)
[2022-06-11] MEDS: predniSONE 5 mg Tablet 2.5 MG PO (08:44)
[2022-06-11] MEDS: pantoprazole DR 40 mg Tablet PO (08:44)
[2022-06-11] MEDS: multivitamin therapeutic Tablet 1 TAB PO (08:44)
[2022-06-11] MEDS: docusate sodium 100 mg Capsule PO (08:44)
[2022-06-11] MEDS: cholecalciferol (vitamin D3) 1,000 unit Tablet 1000 UNIT PO (08:44)
[2022-06-11] MEDS: apixaban 5 mg Tablet 2.5 MG PO (08:45)
[2022-06-11] MEDS: vancomycin 1,500 MG/300 ML PIGGYBACK 200 MG IV (08:45)
[2022-06-11] MEDS: mupirocin oint 22 gm 1 APPLIC NASAL (08:46)
[2022-06-11] MEDS: ketorolac 30 mg/mL INJ 15 MG IVP (10:39)
--- NOTE | 2022-06-11 12:17 | PM.DCS ---
Discharge Providers Date of Admission: 06/10/22 08:53 Date of Discharge: June 11, 2022 Attending Provider at Admission: Piero Martines DO Attending Provider at Discharge: Piero Martines DO Consults: Dr. Olson?hospitalist internal medicine Primary Care Provider: True Bean DO Diagnoses at Discharge Discharge Diagnosis (1) Left knee DJD: Status: Resolved (2) Seropositive rheumatoid arthritis of multiple sites: Status: Acute (3) BPH NOS w ur obs/LUTS: Status: Acute Reason for Visit Reason for Visit: M17.12 Brief History: Left total knee arthroplasty?Nayan robotic assisted Hospital Course Hospital Course Patient presented to the preoperative holding area with plan for left total knee arthroplasty after patient has been worked up in the outpatient setting for failed conservative treatment of left knee degenerative joint disease. Patient's been seen and evaluated by rheumatology and set up to pause his Enbrel as well as hold his Enbrel and methotrexate postoperatively per biology faculty member. We will continue with his hydroxychloroquine and prednisone. Once cleared by anesthesia for surgery patient subsequently was taken back to the operative suite patient underwent spinal anesthesia and then subsequently underwent a left total knee arthroplasty.? Procedure was performed without any complications patient was taken to PACU in stable condition patient? recovered well in PACU and then was admitted to the floor postoperatively internal medicine was consulted and on board for medical management and assistance with care.? Patient received appropriate PT/OT, postoperative antibiotics, postoperative TXA, pain control, postoperative DVT prophylaxis.? Elevation and ice.? Patient encouraged for knee range of motion allowed weightbearing as tolerated to the left lower extremity.? Dressing was changed as needed, pts labs were monitored daily.? Patient recovered well postoperatively and worked well and progressed well with therapy.? Patient did have some urinary retention postoperative day 0 after Angela catheter was removed requiring a one-time straight catheterization and the following morning he had return of his bladder control and was urinating without any issues on postoperative day 1. It was determined on postoperative day 1 the patient was stable for discharge from an orthopedic standpoint as well as internal medicine standpoint.? Patient was comfortable with discharge and plan was discharged home.? Patient received appropriate discharge instruction as well as pain medication and DVT prophylaxis postoperatively.? Given appropriate instructions for dressing management.? Patient will follow-up with orthopedics in the office in 2 weeks.? All questions answered.? Understand if there is any issues questions or concerns and contact the office. Physical Exam Narrative: Examination of the left lower extremity: Dressing on in place clean dry and intact. Dressing not taken down left in place. Calves are soft and nontender compartment soft and compressible. Patient is able to perform gentle knee range of motion and able to perform straight leg raise. He is able to wiggle toes plantarflex and dorsiflex ankle. Sensation intact light touch distally distal pulses are palpable toes are warm well perfused. Urinary Catheter Management: Angela: Cath Placed During This Visit: yes, but has since been removed by the nurse Reason for Continuing Indwelling Catheter: Decision to DC Catheter Urinary Catheter Date of Insertion: 06/10/22 Urinary Catheter Time of Insertion: 07:20 Date Urinary Catheter Removed: 06/10/22 Time Urinary Catheter Discontinued: 13:00 Discharge Data Studies Completed and Pending Completed Studies During Hospitalization Category Date Time Status XR knee LT 1-2V 11156 Routine Exams 06/10/22 09:30 Completed Pending at discharge Category Date Time Status Basic Metabolic Panel AM LABS Lab 06/12/22 04:00 Ordered Basic Metabolic Panel AM LABS Lab 06/13/22 04:00 Ordered Complete Blood Count w/Auto AM LABS Lab 06/12/22 04:00 Ordered Complete Blood Count w/Auto AM LABS Lab 06/13/22 04:00 Ordered Radiology Impressions Knee X-Ray 06/10/22 09:30 IMPRESSION: 1. Left total knee replacement in excellent position. Laboratory Results WBC 6.6 10^3/uL (4.0-10.0) 06/11/22 04:56 RBC 3.52 10^6/uL (4.1-5.3) L 06/11/22 04:56 Hgb 11.6 g/dL (11.7-16.6) L 06/11/22 04:56 Hct 36.3 % (42.0-52.0) L 06/11/22 04:56 MCV 103.1 fl (80-94) H 06/11/22 04:56 MCH 33.0 pg (28.0-34.0) 06/11/22 04:56 MCHC 32.0 g/dL (30.0-36.0) 06/11/22 04:56 RDW 12.7 % (12.1-15.1) 06/11/22 04:56 Plt Count 147 10^3/cmm (130-400) 06/11/22 04:56 MPV 9.7 fL (7.4-10.4) 06/11/22 04:56 Neut % (Auto) 75.0 % 06/11/22 04:56 Lymph % (Auto) 10.5 % 06/11/22 04:56 [place] % (Auto) 12.2 % 06/11/22 04:56 Eos % (Auto) 1.5 % 06/11/22 04:56 Baso % (Auto) 0.6 % 06/11/22 04:56 Neut # (Auto) 4.94 10^3/uL (1.8-7.7) 06/11/22 04:56 Lymph # (Auto) 0.7 10^3/uL (0.8-4.8) L 06/11/22 04:56 [place] # (Auto) 0.8 10^3/uL (0.2-0.9) 06/11/22 04:56 Eos # (Auto) 0.1 10^3/uL (0.0-0.8) 06/11/22 04:56 Baso # (Auto) 0.0 10^3/uL (0.0-0.1) 06/11/22 04:56 Nucleated RBC % (auto) 0 % 06/11/22 04:56 Nucleated RBCs # 0.0 /100WBC 06/11/22 04:56 Sodium 135 mmol/L (136-145) L 06/11/22 04:56 Potassium 4.2 mmol/L (3.5-5.1) 06/11/22 04:56 Chloride 103 mmol/L (98-107) 06/11/22 04:56 Carbon Dioxide 24 mmol/L (22-29) 06/11/22 04:56 Anion Gap 12.2 (5-19) 06/11/22 04:56 BUN 14 mg/dL (8-23) 06/11/22 04:56 Creatinine 0.8 mg/dL (0.7-1.2) 06/11/22 04:56 GFR Calculation Not Reportable 06/11/22 04:56 Glucose 94 mg/dL (65-115) 06/11/22 04:56 Calculated Osmolality 280 mOsm/kg (285-295) L 06/11/22 04:56 Calcium 8.5 mg/dL (8.5-10.5) 06/11/22 04:56 Urine Color Yellow (Yellow) 06/01/22 13:14 Urine Appearance Clear (CLEAR) 06/01/22 13:14 Urine pH 5 (5-7) 06/01/22 13:14 Ur Specific [place] 1.015 (1.005-1.030) 06/01/22 13:14 Urine Protein Trace (Negative) 06/01/22 13:14 Urine Glucose (UA) Norm (Normal) 06/01/22 13:14 Urine Ketones Negative (Negative) 06/01/22 13:14 Urine Blood 2+ (Negative) H 06/01/22 13:14 Urine Nitrate Negative (Negative) 06/01/22 13:14 Urine Bilirubin Neg (Negative) 06/01/22 13:14 Urine Urobilinogen Norm mg/dL (Negative) 06/01/22 13:14 Ur Leukocyte Esterase Negative (Negative) 06/01/22 13:14 Urine RBC 5-10 /hpf (0-2) H 06/01/22 13:14 Urine WBC 5-10 /hpf (0-5) H 06/01/22 13:14 Ur Squamous Epith Cells None /hpf (0-5) 06/01/22 13:14 Amorphous Sediment Not Reportable 06/01/22 13:14 Urine Bacteria Trace /hpf (NONE) 06/01/22 13:14 Blood Type A Positive 06/10/22 06:33 Rho(D) Type Positive 06/10/22 06:33 Antibody Screen Not Reportable 06/10/22 06:33 PEG Antibody Screen Negative 06/10/22 06:33 Procedures Performed Left total knee arthroplasty?Nayan robotic assisted Vitals Last Vital Signs Temp 98.1 F 06/11/22 08:16 Pulse 85 06/11/22 08:16 Resp 16 06/11/22 08:42 BP 126/70 06/11/22 08:16 Pulse Ox 96 06/11/22 08:16 O2 Del Method Room Air 06/11/22 08:16 Discharge Plan Discharge Patient Disposition: Home Health Service Condition: Stable Prescriptions: New Colace 100 mg capsule 100 mg PO DAILY PRN (Reason: constipation) 10 Days Qty: 10 0RF Eliquis 2.5 mg tablet 2.5 mg PO BID 14 Days Qty: 28 0RF oxycodone 5 mg tablet 5 mg PO Q6H PRN (Reason: pain) 7 Days Qty: 28 0RF tramadol 50 mg tablet 50 mg PO Q4H PRN (Reason: mild postop pain) 7 Days Qty: 42 0RF Continued cholecalciferol (vitamin D3) 10 mcg (400 unit) capsule 10 mcg PO DAILY omega-3 fatty acids [Fish Oil Concentrate] 1,000 mg capsule 1,000 mg PO DAILY garlic 1,000 mg capsule 1,000 mg PO DAILY folic acid 800 mcg tablet 0.8 mg PO DAILY acetaminophen [Tylenol Arthritis Pain] 650 mg tablet extended release 650 mg PO Q8H triamcinolone acetonide 0.1 % cream 1 applic topical DAILY PRN (Reason: Dry Skin) hydroxychloroquine 200 mg tablet See Rx Instructions .ROUTE .COMPLEX Qty: 60 3RF Dose Instruction: TAKE 1 TABLET BY MOUTH TWICE A DAY Rx Instructions: TAKE 1 TABLET BY MOUTH TWICE A DAY pantoprazole 40 mg tablet,delayed release (DR/EC) See Rx Instructions .ROUTE .COMPLEX Qty: 90 1RF Dose Instruction: TAKE 1 TABLET BY MOUTH EACH MORNING 30 MINUTES BEFORE MEAL DAILY Rx Instructions: TAKE 1 TABLET BY MOUTH EACH MORNING 30 MINUTES BEFORE MEAL DAILY prednisone 20 mg tablet See Rx Instructions PO .COMPLEX PRN (Reason: joint pain flare) Qty: 30 1RF Rx Instructions: take 1 tab daily for 3-7 days as needed for arthritis flare PO PRN; tramadol 50 mg tablet 50 mg PO TID PRN (Reason: moderate to severe pain) Qty: 60 1RF Held Enbrel SureClick 50 mg/mL (1 mL) pen injector 50 mg SUBCUT Q7D Qty: 12 1RF Hold Instructions: Resume on 06/25/22. Hold for 2 weeks postoperatively per biology faculty member recommendations and until incisions healed methotrexate sodium 2.5 mg tablet See Rx Instructions .ROUTE .COMPLEX Qty: 24 3RF Hold Instructions: Resume on 06/25/22. Hold for at least 2 weeks or until incision heals Dose Instruction: TAKE 2 TABLETS BY MOUTH EVERY 7 DAYS Rx Instructions: TAKE 2 TABLETS BY MOUTH EVERY 7 DAYS No Action tamsulosin 0.4 mg capsule See Rx Instructions .ROUTE .COMPLEX Qty: 90 3RF Dose Instruction: TAKE 1 CAPSULE BY MOUTH EVERY DAY Rx Instructions: TAKE 1 CAPSULE BY MOUTH EVERY DAY prednisone 2.5 mg tablet See Rx Instructions .ROUTE .COMPLEX Qty: 90 1RF Dose Instruction: TAKE 1 TABLET BY MOUTH EVERY DAY Rx Instructions: TAKE 1 TABLET BY MOUTH EVERY DAY Discharge Orders: Discharge Order (Routine); Ordered 06/11/22 Ordered By: Piero Martines Ref[place] [facility] [place]) [Outside] Piero Martines DO [Physician] - 06/29/22 8:45 am Discharge Diet: Advance as tolerated Discharge Activity: Increase activity as tolerated Patient Instructions: Laxative, Stool Softeners (By mouth), Oxycodone, Rapid Release (By mouth), Apixaban (By mouth), Knee Replacement (GEN), Joint Replacement Stoplight, Opioid Safety Activity Restrictions/Additional Instructions: Orthopedic discharge instructions: Patient may be weightbearing as tolerated to the left lower extremity Ice and elevate as needed for pain and swelling Encourage knee range of motion Leave Isaias bandage and dressing on for 48 to 72 hours at that time may take dressing down. Leave white OpSite bandage on in place for 7 days after that may remove and rinse incision with warm soapy water pat dry and redress with a dry dressing no baths or soaks. Glued bandages on the skin in place and keep incision clean dry and intact. contact the office for any questions Take pain medication as prescribed Plan to resume rheumatologic medications per biology faculty member recommendations at preoperative visit (hold Enbrel and methotrexate for at least 2 weeks or until incision heals, may continue and resume hydroxychloroquine) Take Colace stool softener for constipation if needed Take Eliquis (blood thinner) for blood clot prevention for 2 weeks as prescribed Follow-up with Dr. Martines in the office in 2 weeks Contact the office for any questions or concerns Discharge Attestations Time Spent in Discharge Care*: greater than 30 min Quality Metrics Clinical Quality Measures [ No reported AMI, CVA or VTE this stay] Coding Level of Care Code Acute Code for Chg Fwd Diagnoses Left knee DJD M17.12 Seropositive rheumatoid arthritis of multiple sites M05.79 BPH NOS w ur obs/LUTS N40.1
[2022-06-11 12:59] VITALS: BP 146/78; PULSE 78; RESP 17; TEMP 37.4; O2SAT 95
[2022-06-11 14:16] VITALS: RESP 16
== END 2022-06-11 13:50 | disposition home health service (06) ==
LOC: MEDSURG 09:29
PROVIDERS: Admitting Provider Student in an Organized Health Care Education/Training Program; PCP Internal Medicine; Visit Provider Student in an Organized Health Care Education/Training Program
PROC: 8E0Y0CZ Robotic Assisted Procedure of Lower Extremity, Open Approach (ICD-10-PCS; CPT 27447; principal; 2022-06-10 07:00)
DX: M17.12 Unilateral primary osteoarthritis, left knee (principal); M05.89 Other rheumatoid arthritis with rheumatoid factor of multiple sites; N40.1 Benign prostatic hyperplasia with lower urinary tract symptoms; R33.8 Other retention of urine; I45.81 Long QT syndrome; K21.9 Gastro-esophageal reflux disease without esophagitis; Z79.899 Other long term (current) drug therapy; Z88.0 Allergy status to penicillin
CPT/HCPCS: 27447; 36415; 51702; 51798; 73560; 80048; 81001; 85025; 86850; 86900; 93005; 97110; 97161; 97166; A9281; C1776; G0378; J0131; J0171; J1885; J2250; J2370; J2704; J2795; J3370; J3490; J7030; J7120; J7512

== ENCOUNTER → 2022-06-29 08:46 | Outpatient (BNVA) | payer MEDICARE, OTHER, SELFPAY | PROVIDERS: Visit Provider Student in an Organized Health Care Education/Training Program | DX: Z96.652 Presence of left artificial knee joint (principal) | CPT/HCPCS: 73560; 73565 ==

== ENCOUNTER 2022-06-29 12:00 | Outpatient (RCR) | payer MEDICARE, OTHER, SELFPAY | END 2022-07-15 23:59 | disposition home or self-care (01) | LOC: SPT 12:00 | PROVIDERS: PCP Internal Medicine; Visit Provider Student in an Organized Health Care Education/Training Program | DX: Z47.1 Aftercare following joint replacement surgery (principal); Z96.652 Presence of left artificial knee joint | CPT/HCPCS: 97110; 97161; 99024 ==

== ENCOUNTER 2022-07-16 06:00 | Outpatient (RCR) | payer MEDICARE, OTHER, SELFPAY | END 2022-08-06 23:59 | disposition home or self-care (01) | LOC: SPT 06:00 | PROVIDERS: PCP Internal Medicine; Visit Provider Student in an Organized Health Care Education/Training Program | DX: Z47.1 Aftercare following joint replacement surgery (principal); Z96.652 Presence of left artificial knee joint | CPT/HCPCS: 97110 ==

== ENCOUNTER 2022-08-09 04:17 | Emergency (ER) | payer MEDICARE, OTHER, SELFPAY ==
[2022-08-09 04:21] VITALS: BP 150/81; PULSE 70; RESP 20; O2SAT 98; BMI 28.7
--- NOTE | 2022-08-09 04:24 | XRR_ITS ---
PROCEDURE INFORMATION: Exam: XR Chest Exam date and time: 08/09/2022 4:26 AM Age: 71 years old Clinical indication: Chest pressure; Prior surgery; Surgery date: 6+ months; Surgery type: Documented lung surgery, unspecified in emr. Patient HX: C/O chest pain. ; Additional info: Cp TECHNIQUE: Imaging protocol: Radiologic exam of the chest. Views: 1 view. COMPARISON: CR XR chest 1V [id number] 02/28/2018 1:09 PM FINDINGS: Tubes, catheters and devices: EKG monitoring leads overlie the thoracic wall. Lungs: Mild bibasilar atelectatic changes. No consolidation. Pleural spaces: No pleural effusion or pneumothorax. Heart/Mediastinum: Interim development of a right paratracheal mass with mild tracheal bowing to the left. Bones/joints: No acute fracture is identified. XR/XR chest 1V portable [id number] IMPRESSION: A right paratracheal mass with mild tracheal bowing to the left. Considerations include lymphadenopathy, mediastinal mass such as goiter, prominent a tortuous vessels. CT scan of the chest, if possible with contrast may be helpful for further characterization.
[2022-08-09 04:26] VITALS: BP 137/73; PULSE 69; RESP 20; O2SAT 97
--- NOTE | 2022-08-09 04:26 | PC.NURSE ---
placed pt on bedside collection clerk
--- NOTE | 2022-08-09 04:27 | ECG_ITS ---
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 Measurements Intervals [place] Rate: 69 P: 91 IN: 142 QRS: 31 QRSD: 102 T: 43 QT: 450 QTc: 484 Interpretive Statements SINUS RHYTHM WITH OCCASIONAL VENTRICULAR PREMATURE COMPLEXES PROLONGED QT INTERVAL Compared to ECG 06/10/2022 10:59:02 Ventricular premature complex(es) now present Electronically Signed On 08-09-2022 15:46:38 CDT by Arie Arellano M.D. [id number]
[2022-08-09 04:33] LABS: Basophils # 0.1 10^3/uL (0.0-0.1); Eosinophils # 0.1 10^3/uL (0.0-0.8); Eosinophils % 2.1 %; Hemoglobin 14.3 g/dL (11.7-16.6); Lymphocytes # 2.4 10^3/uL (0.8-4.8); Lymphocytes % 40.8 %; Mean Corpuscular HGB Conc 32.5 g/dL (30.0-36.0); Mean Corpuscular Hemoglobin 32.6 pg (28.0-34.0); Mean Corpuscular Volume 100.2 fl (80-94); Mean Platelet Volume 9.5 fL (7.4-10.4); Monocytes # 0.7 10^3/uL (0.2-0.9); Monocytes % 11.8 %; Neutrophils # 2.54 10^3/uL (1.8-7.7); Neutrophils % 44.1 %; Nucleated Red Blood Cells % 0 %; Platelet Count 175 10^3/cmm (130-400); Red Blood Count 4.39 10^6/uL (4.1-5.3); Red Cell Distribution Width 11.9 % (12.1-15.1); White Blood Count 5.8 10^3/uL (4.0-10.0)
[2022-08-09] MEDS: lidocaine 2% viscous 15 ML, aluminum-mag hydrox-simethicon 30 ML, sucralfate oral liq 1 GM PO (04:56)
[2022-08-09 05:03] VITALS: BP 124/74; PULSE 69; O2SAT 95
[2022-08-09 05:06] LABS: Alanine Aminotransferase 12 U/L (0-41); Alkaline Phosphatase 74 U/L (40-130); Aspartate Amino Transferase 20 U/L (0-40); Blood Urea Nitrogen 15 mg/dL (8-23); Calcium 9.4 mg/dL (8.5-10.5); Carbon Dioxide 26 mmol/L (22-29); Chloride 103 mmol/L (98-107); Globulin 3.3 g/dL (1.3-4.6); Glucose 90 mg/dL (65-115); NT Pro B Type Natriuretic Pept 234 pg/mL (0-125); Osmolality Calculated 290 mOsm/kg (285-295); Sodium 140 mmol/L (136-145); Total Bilirubin 0.6 mg/dL (0.15-1.2); Total Protein 7.3 g/dL (6.6-8.7)
--- NOTE | 2022-08-09 05:18 | ED_ITS ---
Documented by User: Braulio Dillon DO 08/11/22 19:35 HPI - Chest Pain General: Chief Complaint: Chest Pain Stated Complaint: Fells Like he has a weight on his chest Time Seen by Provider: 08/09/22 04:24 Source: patient and family History of Present Illness: 71-year-old gentleman with no prior history of coronary disease. He presents with chest discomfort on the left side of his anterior chest, that woke him from sleep. This was sometime between 3 and 4. He is not complaining of shortness of breath. states he was clammy pain is much improved now. He states that the pain is a 1-2. No history of cough. No history of leg swelling. MD complaint: chest pain Pertinent past history: other Onset (ago): minute(s) Timing of current episode: constant Prior episodes: Yes (Once last night) Onset: during rest and awoke with symptoms Pain location: substernal and left chest Pain radiation: left arm Quality: tightness and heaviness Relieving factors: nothing Associated symptoms: Reports diaphoresis, nausea and vomiting; Deny abdominal pain, dyspnea, fever(s) or palpitations Review of Systems Const: Reports: diaphoresis; Denies: fever(s) Eyes: Denies: change in vision ENMT: Reports: mouth pain; Denies: throat pain Card: Reports: chest pain; Denies: palpitations Resp: Denies: dyspnea, productive cough or non-productive cough GI: Reports: nausea and vomiting; Denies: abdominal pain Skin/Breast: Denies: rash PFSH ED PFSH: Medical History BPH NOS w ur obs/LUTS Degenerative joint disease of right knee GERD (gastroesophageal reflux disease) High risk medication use Immunization counseling Lesion of bladder Osteoarthritis of knees, 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 Father , AT AGE 36-BRAIN TUMOR No problems noted. Other Cancer Diabetes Hypertension Lung disease Suicide Denies family history of Rheumatoid arthritis Lupus CAD (coronary artery disease) Chronic kidney disease (CKD) Stroke Social History Smoking and tobacco status: never smoked Alcohol intake: never Substance/Drug Use: never Adopted: No Lives independently: No Household members: spouse Marital status: Current occupational status: retired Physical Exam HENMT: COMMON NORMALS: normocephalic and atraumatic HEAD & SCALP: normocephalic and atraumatic Eye: COMMON NORMALS: Equal, round and reactive pupils present and EOMs intact bilaterally PUPIL: Yes Equal, round and reactive pupils present Neck/C-Spine: GENERAL: Yes normal visual inspection Chest: CHEST: Yes Symmetrical chest wall rise Resp: COMMON NORMALS: normal respiratory effort, No use of accessory muscles and clear to auscultation bilaterally AUSCULTATION: clear to auscultation bilaterally Cardio: COMMON NORMALS: regular rate and regular rhythm RATE: regular rate RHYTHM: regular rhythm GI: COMMON NORMALS: Normal to inspection, nondistended, normoactive bowel sounds present and Soft to palpation PALPATION: Yes Soft to palpation and Yes Tenderness to palpation present (GI) (Epigastric) Extremity: COMMON NORMALS: no pedal edema Neuro: WANDA COMA SCALE: document GCS findings Wanda coma scale eye opening: Spontaneous Wanda coma scale verbal response: Orientated Wanda coma scale motor response: Obey commands [place] coma scale total score: 15 Course Vital Signs: Vital signs: Vital Signs Pulse Rate 65 08/09/22 07:29 Respiratory Rate 15 08/09/22 07:29 Blood Pressure 136/70 08/09/22 07:29 Pulse Oximetry 97 08/09/22 07:29 Oxygen Delivery Me thod Room Air 08/09/22 05:03 MDM - Chest Pain Medical Decision Making Vitals are stable. EKG shows sinus rhythm with a rate of 70. Normal axis. Slightly prolonged QT interval. No acute ST changes. CBC and BMP are normal. His troponin is 12 at baseline. 2-hour troponin is pending. Lab Data 08/09/22 04:25 08/09/22 04:25 Radiology Impressions Chest X-Ray 08/09/22 04:24 IMPRESSION: A right paratracheal mass with mild tracheal bowing to the left. Considerations include lymphadenopathy, mediastinal mass such as goiter, prominent a tortuous vessels. CT scan of the chest, if possible with contrast may be helpful for further characterization. Laboratory Results WBC 5.8 10^3/uL (4.0-10.0) 08/09/22 04:25 RBC 4.39 10^6/uL (4.1-5.3) 08/09/22 04:25 Hgb 14.3 g/dL (11.7-16.6) 08/09/22 04:25 Hct 44.0 % (42.0-52.0) 08/09/22 04:25 MCV 100.2 fl (80-94) H 08/09/22 04:25 MCH 32.6 pg (28.0-34.0) 08/09/22 04:25 MCHC 32.5 g/dL (30.0-36.0) 08/09/22 04:25 RDW 11.9 % (12.1-15.1) L 08/09/22 04:25 Plt Count 175 10^3/cmm (130-400) 08/09/22 04:25 MPV 9.5 fL (7.4-10.4) 08/09/22 04:25 Neut % (Auto) 44.1 % 08/09/22 04:25 Lymph % (Auto) 40.8 % 08/09/22 04:25 [place] % (Auto) 11.8 % 08/09/22 04:25 Eos % (Auto) 2.1 % 08/09/22 04:25 Baso % (Auto) 1.0 % 08/09/22 04:25 Neut # (Auto) 2.54 10^3/uL (1.8-7.7) 08/09/22 04:25 Lymph # (Auto) 2.4 10^3/uL (0.8-4.8) 08/09/22 04:25 [place] # (Auto) 0.7 10^3/uL (0.2-0.9) 08/09/22 04:25 Eos # (Auto) 0.1 10^3/uL (0.0-0.8) 08/09/22 04:25 Baso # (Auto) 0.1 10^3/uL (0.0-0.1) 08/09/22 04:25 Nucleated RBC % (auto) 0 % 08/09/22 04:25 Nucleated RBCs # 0.0 /100WBC 08/09/22 04:25 Sodium 140 mmol/L (136-145) 08/09/22 04:25 Potassium 4.0 mmol/L (3.5-5.1) 08/09/22 04:25 Chloride 103 mmol/L (98-107) 08/09/22 04:25 Carbon Dioxide 26 mmol/L (22-29) 08/09/22 04:25 Anion Gap 15.0 (5-19) 08/09/22 04:25 BUN 15 mg/dL (8-23) 08/09/22 04:25 Creatinine 0.9 mg/dL (0.7-1.2) 08/09/22 04:25 GFR Calculation Not Reportable 08/09/22 04:25 Glucose 90 mg/dL (65-115) 08/09/22 04:25 Calculated Osmolality 290 mOsm/kg (285-295) 08/09/22 04:25 Calcium 9.4 mg/dL (8.5-10.5) 08/09/22 04:25 Total Bilirubin 0.6 mg/dL (0.15-1.2) 08/09/22 04:25 AST 20 U/L (0-40) 08/09/22 04:25 ALT 12 U/L (0-41) 08/09/22 04:25 Alkaline Phosphatase 74 U/L (40-130) 08/09/22 04:25 Troponin T Baseline 12 ng/L (0-15) 08/09/22 04:25 Troponin T 120 Minute 11.07 ng/L (0-15) 08/09/22 06:23 Delta Troponin T -0.93 ABS# (0-10) L 08/09/22 06:23 NT-Pro-B Natriuret Pep 234 pg/mL (0-125) H 08/09/22 04:25 Total Protein 7.3 g/dL (6.6-8.7) 08/09/22 04:25 Albumin 4.0 g/dL (3.5-5.2) 08/09/22 04:25 Globulin 3.3 g/dL (1.3-4.6) 08/09/22 04:25 Discharge Plan Discharge Patient Disposition: Home Clinical Impression: Chest pain Condition: Stable Prescriptions: No Action cholecalciferol (vitamin D3) 10 mcg (400 unit) capsule 10 mcg PO DAILY omega-3 fatty acids [Fish Oil Concentrate] 1,000 mg capsule 1,000 mg PO DAILY garlic 1,000 mg capsule 1,000 mg PO DAILY folic acid 800 mcg tablet 0.8 mg PO DAILY acetaminophen [Tylenol Arthritis Pain] 650 mg tablet extended release 650 mg PO Q8H triamcinolone acetonide 0.1 % cream 1 applic topical DAILY PRN (Reason: Dry Skin) Enbrel SureClick 50 mg/mL (1 mL) pen injector 50 mg SUBCUT Q7D Qty: 12 1RF Hold Instructions: Resume on 06/25/22. Hold for 2 weeks postoperatively per multisensor intelligence officer recommendations and until incisions healed hydroxychloroquine 200 mg tablet See Rx Instructions .ROUTE .COMPLEX Qty: 60 3RF Dose Instruction: TAKE 1 TABLET BY MOUTH TWICE A DAY Rx Instructions: TAKE 1 TABLET BY MOUTH TWICE A DAY methotrexate sodium 2.5 mg tablet See Rx Instructions .ROUTE .COMPLEX Qty: 24 3RF Hold Instructions: Resume on 06/25/22. Hold for at least 2 weeks or until incision heals Dose Instruction: TAKE 2 TABLETS BY MOUTH EVERY 7 DAYS Rx Instructions: TAKE 2 TABLETS BY MOUTH EVERY 7 DAYS pantoprazole 40 mg tablet,delayed release (DR/EC) See Rx Instructions .ROUTE .COMPLEX Qty: 90 1RF Dose Instruction: TAKE 1 TABLET BY MOUTH EACH MORNING 30 MINUTES BEFORE MEAL DAILY Rx Instructions: TAKE 1 TABLET BY MOUTH EACH MORNING 30 MINUTES BEFORE MEAL DAILY prednisone 20 mg tablet See Rx Instructions PO .COMPLEX PRN (Reason: joint pain flare) Qty: 30 1RF Rx Instructions: take 1 tab daily for 3-7 days as needed for arthritis flare PO PRN; tramadol 50 mg tablet 50 mg PO TID PRN (Reason: moderate to severe pain) Qty: 60 1RF tamsulosin 0.4 mg capsule See Rx Instructions .ROUTE .COMPLEX Qty: 90 3RF Dose Instruction: TAKE 1 CAPSULE BY MOUTH EVERY DAY Rx Instructions: TAKE 1 CAPSULE BY MOUTH EVERY DAY prednisone 2.5 mg tablet See Rx Instructions .ROUTE .COMPLEX Qty: 90 1RF Dose Instruction: TAKE 1 TABLET BY MOUTH EVERY DAY Rx Instructions: TAKE 1 TABLET BY MOUTH EVERY DAY Discharge Orders: Discharge ED (Routine); Ordered 08/09/22 Ordered By: Hiram Quintana Referrals: True Bean DO [Primary Care Provider] - 1-3 days Patient Instructions: Chest Pain (ED) Activity Restrictions/Additional Instructions: Return for return of or worsening chest discomfort, shortness of breath, fever, other concerning symptoms. Case management will make arrangements for a outpatient Maida vogelmibi stress test Sign Out Sign Out Data: Patient Sign Out occurred on 08/09/22 at 06:40. Patient's care was discussed, and care was transferred from to Hiram Quintana DO. 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 Father , AT AGE 36-BRAIN TUMOR No problems noted. Other Cancer Diabetes Hypertension Lung disease Suicide Denies family history of Rheumatoid arthritis Lupus CAD (coronary artery disease) Chronic kidney disease (CKD) Stroke Social History Smoking and tobacco status: never smoked Alcohol intake: never Substance/Drug Use: never Adopted: No Lives independently: No Household members: spouse Marital status: Current occupational status: retired Physical Exam Neuro: WANDA COMA SCALE: document GCS findings [place] coma scale total score: 15 Course Vital Signs: Vital signs: Vital Signs Pulse Rate 65 08/09/22 07:29 Respiratory Rate 15 08/09/22 07:29 Blood Pressure 136/70 08/09/22 07:29 Pulse Oximetry 97 08/09/22 07:29 Oxygen Delivery Me thod Room Air 08/09/22 05:03 MDM - Chest Pain Medical Decision Making Vitals are stable. EKG shows sinus rhythm with a rate of 70. Normal axis. Slightly prolonged QT interval. No acute ST changes. CBC and BMP are normal. His troponin is 12 at baseline. 2-hour troponin is pending. Care assumed at change of shift. EKG does not show any acute changes troponin trend is negative. Will discharge patient home vascular take baby aspirin daily and set him up for an outpatient Lexiscan sestamibi stress test return if has further problems. Lab Data 08/09/22 04:25 08/09/22 04:25 Radiology Impressions Chest X-Ray 08/09/22 04:24 IMPRESSION: A right paratracheal mass with mild tracheal bowing to the left. Considerations include lymphadenopathy, mediastinal mass such as goiter, prominent a tortuous vessels. CT scan of the chest, if possible with contrast may be helpful for further characterization. Laboratory Results WBC 5.8 10^3/uL (4.0-10.0) 08/09/22 04:25 RBC 4.39 10^6/uL (4.1-5.3) 08/09/22 04:25 Hgb 14.3 g/dL (11.7-16.6) 08/09/22 04:25 Hct 44.0 % (42.0-52.0) 08/09/22 04:25 MCV 100.2 fl (80-94) H 08/09/22 04:25 MCH 32.6 pg (28.0-34.0) 08/09/22 04:25 MCHC 32.5 g/dL (30.0-36.0) 08/09/22 04:25 RDW 11.9 % (12.1-15.1) L 08/09/22 04:25 Plt Count 175 10^3/cmm (130-400) 08/09/22 04:25 MPV 9.5 fL (7.4-10.4) 08/09/22 04:25 Neut % (Auto) 44.1 % 08/09/22 04:25 Lymph % (Auto) 40.8 % 08/09/22 04:25 [place] % (Auto) 11.8 % 08/09/22 04:25 Eos % (Auto) 2.1 % 08/09/22 04:25 Baso % (Auto) 1.0 % 08/09/22 04:25 Neut # (Auto) 2.54 10^3/uL (1.8-7.7) 08/09/22 04:25 Lymph # (Auto) 2.4 10^3/uL (0.8-4.8) 08/09/22 04:25 [place] # (Auto) 0.7 10^3/uL (0.2-0.9) 08/09/22 04:25 Eos # (Auto) 0.1 10^3/uL (0.0-0.8) 08/09/22 04:25 Baso # (Auto) 0.1 10^3/uL (0.0-0.1) 08/09/22 04:25 Nucleated RBC % (auto) 0 % 08/09/22 04:25 Nucleated RBCs # 0.0 /100WBC 08/09/22 04:25 Sodium 140 mmol/L (136-145) 08/09/22 04:25 Potassium 4.0 mmol/L (3.5-5.1) 08/09/22 04:25 Chloride 103 mmol/L (98-107) 08/09/22 04:25 Carbon Dioxide 26 mmol/L (22-29) 08/09/22 04:25 Anion Gap 15.0 (5-19) 08/09/22 04:25 BUN 15 mg/dL (8-23) 08/09/22 04:25 Creatinine 0.9 mg/dL (0.7-1.2) 08/09/22 04:25 GFR Calculation Not Reportable 08/09/22 04:25 Glucose 90 mg/dL (65-115) 08/09/22 04:25 Calculated Osmolality 290 mOsm/kg (285-295) 08/09/22 04:25 Calcium 9.4 mg/dL (8.5-10.5) 08/09/22 04:25 Total Bilirubin 0.6 mg/dL (0.15-1.2) 08/09/22 04:25 AST 20 U/L (0-40) 08/09/22 04:25 ALT 12 U/L (0-41) 08/09/22 04:25 Alkaline Phosphatase 74 U/L (40-130) 08/09/22 04:25 Troponin T Baseline 12 ng/L (0-15) 08/09/22 04:25 Troponin T 120 Minute 11.07 ng/L (0-15) 08/09/22 06:23 Delta Troponin T -0.93 ABS# (0-10) L 08/09/22 06:23 NT-Pro-B Natriuret Pep 234 pg/mL (0-125) H 08/09/22 04:25 Total Protein 7.3 g/dL (6.6-8.7) 08/09/22 04:25 Albumin 4.0 g/dL (3.5-5.2) 08/09/22 04:25 Globulin 3.3 g/dL (1.3-4.6) 08/09/22 04:25 Discharge Plan Discharge Patient Disposition: Home Clinical Impression: Chest pain Condition: Stable Prescriptions: No Action cholecalciferol (vitamin D3) 10 mcg (400 unit) capsule 10 mcg PO DAILY omega-3 fatty acids [Fish Oil Concentrate] 1,000 mg capsule 1,000 mg PO DAILY garlic 1,000 mg capsule 1,000 mg PO DAILY folic acid 800 mcg tablet 0.8 mg PO DAILY acetaminophen [Tylenol Arthritis Pain] 650 mg tablet extended release 650 mg PO Q8H triamcinolone acetonide 0.1 % cream 1 applic topical DAILY PRN (Reason: Dry Skin) Enbrel SureClick 50 mg/mL (1 mL) pen injector 50 mg SUBCUT Q7D Qty: 12 1RF Hold Instructions: Resume on 06/25/22. Hold for 2 weeks postoperatively per multisensor intelligence officer recommendations and until incisions healed hydroxychloroquine 200 mg tablet See Rx Instructions .ROUTE .COMPLEX Qty: 60 3RF Dose Instruction: TAKE 1 TABLET BY MOUTH TWICE A DAY Rx Instructions: TAKE 1 TABLET BY MOUTH TWICE A DAY methotrexate sodium 2.5 mg tablet See Rx Instructions .ROUTE .COMPLEX Qty: 24 3RF Hold Instructions: Resume on 06/25/22. Hold for at least 2 weeks or until incision heals Dose Instruction: TAKE 2 TABLETS BY MOUTH EVERY 7 DAYS Rx Instructions: TAKE 2 TABLETS BY MOUTH EVERY 7 DAYS pantoprazole 40 mg tablet,delayed release (DR/EC) See Rx Instructions .ROUTE .COMPLEX Qty: 90 1RF Dose Instruction: TAKE 1 TABLET BY MOUTH EACH MORNING 30 MINUTES BEFORE MEAL DAILY Rx Instructions: TAKE 1 TABLET BY MOUTH EACH MORNING 30 MINUTES BEFORE MEAL DAILY prednisone 20 mg tablet See Rx Instructions PO .COMPLEX PRN (Reason: joint pain flare) Qty: 30 1RF Rx Instructions: take 1 tab daily for 3-7 days as needed for arthritis flare PO PRN; tramadol 50 mg tablet 50 mg PO TID PRN (Reason: moderate to severe pain) Qty: 60 1RF tamsulosin 0.4 mg capsule See Rx Instructions .ROUTE .COMPLEX Qty: 90 3RF Dose Instruction: TAKE 1 CAPSULE BY MOUTH EVERY DAY Rx Instructions: TAKE 1 CAPSULE BY MOUTH EVERY DAY prednisone 2.5 mg tablet See Rx Instructions .ROUTE .COMPLEX Qty: 90 1RF Dose Instruction: TAKE 1 TABLET BY MOUTH EVERY DAY Rx Instructions: TAKE 1 TABLET BY MOUTH EVERY DAY Discharge Orders: Discharge ED (Routine); Ordered 08/09/22 Ordered By: Hiram Quintana Referrals: True Bean DO [Primary Care Provider] - 1-3 days Patient Instructions: Chest Pain (ED) Activity Restrictions/Additional Instructions: Return for return of or worsening chest discomfort, shortness of breath, fever, other concerning symptoms. Case management will make arrangements for a outpatient Lexiscan sestamibi stress test Sign Out Sign Out Data: Patient Sign Out occurred on 08/09/22 at 06:40. Patient's care was discussed, and care was transferred from to Hiram Quintana DO. Coding Level of Care Code ED Geophysics Professor for Toy Eaton
[2022-08-09 05:22] LABS: Troponin(5th) Baseline 12 ng/L (0-15)
--- NOTE | 2022-08-09 06:26 | ECG_ITS ---
[facility] Test Date: 2022-08-09 Pat Name: Jhonatan Lewis Department: Room: Gender: Male Social Media Specialist: : 1950 Requested By: Braulio Sandy Order Number: [id number] Danielle MD: Arie Arellano M.D. Measurements Intervals Wilder Rate: 57 P: 67 NM: 155 QRS: 34 QRSD: 106 T: 46 QT: 469 QTc: 460 Interpretive Statements SINUS BRADYCARDIA WITH MARKED SINUS ARRHYTHMIA POSSIBLE LATERAL MYOCARDIAL INFARCTION , PROBABLY OLD [30 ms Q WAVE IN I/aVL/V5/V6] Compared to ECG 06/10/2022 10:59:02 Myocardial infarct finding now present Sinus rhythm no longer present Prolonged QT interval no longer present Electronically Signed On 08-09-2022 8:21:36 CDT by Arie Arellano M.D. [id number]
[2022-08-09 06:51] LABS: Troponin 5 2HR 11.07 ng/L (0-15)
[2022-08-09 07:07] LABS: Troponin 5 2HR Delta -0.93 ABS# (0-10)
--- NOTE | 2022-08-09 07:22 | DCPLANNER ---
Addendum entered by Myrtle Pérez 09/10/22 06:33: Patient had an outpatient stress test scheduled - patient did attend appointment. Addendum entered by Myrtle Pérez 08/21/22 08:55: Patient has a stress test scheduled for Wednesday, August 24, 2022 at 8:15. Original Note: employment manager had message to schedule an outpatient stress test for patient. employment manager faxed signed order to centralized scheduling, who will call patient with appointment information.
[2022-08-09 07:29] VITALS: BP 136/70; PULSE 65; RESP 15; O2SAT 97
== END 2022-08-09 07:31 | disposition home or self-care (01) ==
PROVIDERS: Emergency Medicine; Emergency Provider Family Medicine; PCP Internal Medicine
DX: R07.9 Chest pain, unspecified (principal)
CPT/HCPCS: 36415; 71045; 80053; 83880; 84484; 85025; 93005; 99285

== ENCOUNTER → 2022-08-10 09:47 | Outpatient (BNVA) | payer MEDICARE, OTHER, SELFPAY | PROVIDERS: PCP Internal Medicine; Visit Provider Student in an Organized Health Care Education/Training Program | DX: Z96.652 Presence of left artificial knee joint (principal) | CPT/HCPCS: 73560; 73565; 99024 ==

== ENCOUNTER 2022-08-24 07:52 | Outpatient (CLI) | payer MEDICARE, OTHER, SELFPAY ==
[2022-08-24 08:17] VITALS: BMI 28.7
--- NOTE | 2022-08-24 08:17 | NMCV_ITS ---
NM will perf SPECT r/s* [id number] Jhonatan Lewis Age: 71 Gender: M : 1950 Exam Date: 08/24/2022 09:11 Ordering Phys: Hiram Quintana DO Technologist: DMITRIY Arroyo Exam Location: [facility] Indications: CHEST PAIN STRESS TEST Please see separate stress test report in [facility] for full findings IMAGE PROTOCOL Rest/Stress 1 Lexiscan Day Radiopharmaceutical Dose (mCi) Administration Site Administered by Rest: Tc-99m 10.9 IV DMITRIY Ortega Sestamibi Stress:Tc-99m 32.9 IV DMITRIY Ortega Sestamibi Rest: 24-Aug-2022 60 Discovery 630 Stress: 24-Aug-2022 30 Discovery 630 0.4mg Lexiscan. Images obtained in supine and prone position. SPECT RESULTS Technical Quality: Excellent Raw Data Analysis: Normal Image Corrections: No attenuation or motion correction applied Summed Stress Score: 0 Summed Rest Score: 0 Summed Difference Score: 0 PERFUSION FINDINGS SPECT images demonstrate homogeneous tracer distribution throughout the myocardium. FUNCTIONAL RESULTS (calculated via Gated SPECT) Stress Image LV EF (%): 56 Stress EDV (mL):115 TID: 1.09 Stress ESV (mL):51 FUNCTIONAL FINDINGS: The left ventricle is normal in size. Transient Ischemia Dilatation of 1.1. The left ventricular ejection fraction is normal with a value of 56%. There is normal left ventricular wall thickening. IMPRESSIONS 1. Myocardial perfusion imaging is normal. 2. Overall left ventricular systolic function is normal without regional wall motion abnormalities, LVEF=56%. 3. No EKG changes with lexiscan infusion. 4. Scan indicates low risk for cardiac events. Amarilis Burden MD (Electronically Signed) Final Date: 27 August 2022 10:54 S
--- NOTE | 2022-08-24 08:17 | ECG_ITS ---
[facility] Test Date: 2022-08-24 Pat Name: Jhonatan Lewis Department: Room: Gender: Male Room Attendants: : 1950 Requested By: Hiram Sims Order Number: [id number] Danielle MD: Amarilis Burden M.D. Interpretive Statements NAME OF STUDY: LEXISCAN SESTAMIBI STRESS TEST INDICATION: Atypical Chest Pain PROCEDURE: At the baseline, the blood pressure was 140/83 mm Hg with a heart rate of 77 bpm and oxygen saturation of 94%. The electrocardiogram showed sinus rhythm with frequent PVC's. Normal axis with no significant ST-T wave changes. The Lexiscan was infused over a period of 20 seconds. A total of 0.4 milligrams of Lexiscan was infused. The stress phase was continued for a total of 5 minutes. Heart rate at the end of the stress phase was 91 bpm with a blood pressure of 133/80 mm Hg. The EKG at the peak infusion revealed sinus rhythm and no ST-T wave changes. Sestamibi was injected 20 seconds after the Lexiscan infusion. Blood pressure at the end of the recovery phase was 126/83 mm Hg with a heart rate of 82 beats per and oxygen saturation of 97%. CONCLUSION: 1. No significant EKG changes with the LexiScan infusion. 2. No LexiScan induced chest pain or cardiac arrhythmia. 3. Normal blood pressure and heart rate response. 4. Sestamibi/sestamibi perfusion scan pending; see separate report. Electronically Signed On 08-27-2022 10:50:49 CDT by Amarilis Burden M.D. [id number]
[2022-08-24] MEDS: regadenoson 0.4 Mg/5 ml Syringe IVP (09:41)
[2022-08-24 09:54] VITALS: BP 126/83; PULSE 87
== END 2022-08-24 07:53 | disposition home or self-care (01) ==
LOC: CDL 07:52
PROVIDERS: PCP Internal Medicine; Visit Provider Family Medicine
DX: R07.89 Other chest pain (principal)
CPT/HCPCS: 36415; 78452; 93017; 96374; A9500; J2785

== ENCOUNTER → 2022-09-01 14:23 | Outpatient (BNVA) | payer MEDICARE, OTHER, SELFPAY | PROVIDERS: PCP Internal Medicine; Visit Provider Internal Medicine Rheumatology | DX: M05.79 Rheumatoid arthritis with rheumatoid factor of multiple sites without organ or systems involvement (principal); Z79.899 Other long term (current) drug therapy; Z71.85 Encounter for immunization safety counseling; M17.0 Bilateral primary osteoarthritis of knee | CPT/HCPCS: 99214 ==

== ENCOUNTER → 2022-11-27 10:10 | Outpatient (BNVA) | payer MEDICARE, OTHER, SELFPAY | PROVIDERS: PCP Internal Medicine; Visit Provider Student in an Organized Health Care Education/Training Program | DX: Z01.818 Encounter for other preprocedural examination (principal) | CPT/HCPCS: 36415; 80053; 81001; 85025; 87086; 99214 ==

== ENCOUNTER 2022-12-07 07:08 | Outpatient (CLI) | payer MEDICARE, OTHER, SELFPAY ==
--- NOTE | 2022-12-07 07:30 | CT_ITS ---
WS: [id number] CT RIGHT KNEE, NONCONTRAST HE TECHNIQUE: Noncontrast CT of the RIGHT knee to include the RIGHT hip and ankle. CLINICAL INFORMATION: M17.11 - Unilateral primary osteoarthritis, right knee COMPARISON: None. DLP: 1018.[address] scans at [facility] use at least one of these dose optimization techniques: automated e xposure control; mA and/or kV adjustment per patient size (includes targeted exams where dose is matc hed to clinical indication); or iterative reconstruction. FINDINGS: Prior postoperative changes LEFT TKA. Moderate to advanced joint arthritis RIGHT knee worse in the me dial joint compartment. Osteopenia. Hypertrophic changes along the joint line. Mild degenerative narr owing both hips. Sigmoid diverticulosis. Bladder diverticuli at the dome of the bladder unchanged sim ilar compared to 2019. Slight associated thickening and induration. Recommend correlation for recurre nt UTI. Recommend follow-up with cystoscopy to evaluate for neoplasia. Vascular calcification. IMPRESSION: Bladder diverticuli ventral bladder similar to 2019. Associated thickening and induration . Recommend correlation for recurrent UTI. Recommend follow-up with cystoscopy to evaluate for neopla alan. Images obtained for preoperative purposes.
== END 2022-12-07 07:09 | disposition home or self-care (01) ==
LOC: RAD 07:10
PROVIDERS: PCP Internal Medicine; Visit Provider Student in an Organized Health Care Education/Training Program
DX: M17.11 Unilateral primary osteoarthritis, right knee (principal)
CPT/HCPCS: 73700

== ENCOUNTER → 2022-12-08 14:13 | Outpatient (BNVA) | payer MEDICARE, OTHER, SELFPAY | PROVIDERS: PCP Internal Medicine; Visit Provider Internal Medicine Rheumatology | DX: Z79.899 Other long term (current) drug therapy (principal); M05.79 Rheumatoid arthritis with rheumatoid factor of multiple sites without organ or systems involvement; Z71.85 Encounter for immunization safety counseling; M17.0 Bilateral primary osteoarthritis of knee | CPT/HCPCS: 99214 ==

== ENCOUNTER → 2022-12-14 12:25 | Outpatient (BNVA) | payer MEDICARE, OTHER, SELFPAY | PROVIDERS: PCP Internal Medicine; Visit Provider Family Medicine | DX: Z01.818 Encounter for other preprocedural examination (principal) | CPT/HCPCS: 81000 ==

== ENCOUNTER 2022-12-28 10:03 | Observation (INO) | payer MEDICARE, OTHER, SELFPAY ==
[2022-12-28] VITALS (14 sets, daily range): BP systolic 114–163; BP diastolic 56–82; PULSE 51–90; RESP 16–18; TEMP 35.9–36.7; O2SAT 95–100
[2022-12-28] MEDS: sodium chloride 0.9% 1,000 ML 30 ML IV (06:33)
[2022-12-28] MEDS: acetaminophen 1,000 MG/100 ML PIGGYBACK 400 MG IV ×3 (06:33→21:36)
[2022-12-28] MEDS: ketorolac 30 mg/mL INJ IVP (06:33)
[2022-12-28] MEDS: lactated ringers 500 ML IV (06:34)
[2022-12-28 06:41] LABS: Basophils % 0.4 %; Eosinophils # 0.1 10^3/uL (0.0-0.8); Eosinophils % 0.9 %; Hematocrit 43.1 % (37-53); Lymphocytes # 1.7 10^3/uL (0.8-4.8); Mean Corpuscular HGB Conc 33.2 g/dL (30-55); Mean Corpuscular Hemoglobin 32.6 pg (27-33); Mean Corpuscular Volume 98.2 fl (82-101); Mean Platelet Volume 9.5 fL (7.4-10.4); Monocytes # 0.8 10^3/uL (0.2-0.9); Monocytes % 12.4 %; Neutrophils # 4.14 10^3/uL (1.8-7.7); Nucleated Red Blood Cells % 0 %; Platelet Count 162 10^3/cmm (157-399); Red Blood Count 4.39 10^6/uL (3.85-5.65); Red Cell Distribution Width 12.6 % (12.1-15.1); White Blood Count 6.79 10^3/uL (3.29-11.43)
--- NOTE | 2022-12-28 06:56 | W.PM.OPSUD ---
Surgery/Procedure H&P Update DATE OF PROCEDURE: December 28, 2022 DATE H&P PERFORMED: 11/27/22 H&P UPDATE INFORMATION: I have reviewed H&P completed within last 30 days, I have examined patient prior to procedure and No changes to prior documentation CHANGES TO PREVIOUS DOCUMENTATION: None. Patient has seen rheumatology and coordinated discontinuing his Enbrel 7 days at which he has. Denies any changes in his health since his last office visit. At this point in time patient understands [facility] procedure risk benefits complication alternatives to surgery elects proceed with surgical intervention for a right total knee arthroplasty Nayan robotic assisted. PREOP DIAGNOSIS: Right knee degenerative joint disease PRIMARY INDICATION FOR PROCEDURE: Right knee degenerative joint disease PLANNED PROCEDURE: Operation Date: 12/28/22 07:00 Proposed Procedures p Nayan Robot Total Knee Arthroplasty(Right) - Piero Martines DO
[2022-12-28 06:57] LABS: Anion Gap 13.8 (5-19); Blood Urea Nitrogen 21 mg/dL (8-23); Calcium 9.3 mg/dL (8.5-10.5); Carbon Dioxide 24 mmol/L (22-29); Chloride 106 mmol/L (98-107); Glucose 103 mg/dL (65-115); Osmolality Calculated 293 mOsm/kg (285-295); Potassium 3.8 mmol/L (3.5-5.1); Sodium 140 mmol/L (136-145)
--- NOTE | 2022-12-28 07:03 | ANES.PREANE2 ---
Pre-Anesthetic Assessment Height/Weight: Height 1.91 m Weight 106.594 kg Temp Pulse Resp BP Pulse Ox O2 Del Method 97.3 F L 74 16 114/70 95 Room Air 12/28/22 05:53 12/28/22 05:53 12/28/22 05:53 12/28/22 05:53 12/28/22 05:53 12/28/22 06:13 Preop Diagnosis: Right knee degenerative joint disease Operation Date: 12/28/22 07:00 Proposed Procedures p Nayan Robot Total Knee Arthroplasty(Right) - Piero Martines DO Familial anesthetic complications: None Was Beta Yissel taken within 24 hours: N/A Was Clonidine taken within 24 hours: N/A Last intake: Intake Last Liquid Date 12/27/22 Last Liquid Time 22:00 Last Solid Date 12/27/22 Last Solid Time 18:00 Social No alcohol and No tobacco Exam alert, oriented x 3, clear to auscultation bilaterally and regular rate & rhythm Airway Mallampati: Class II Dentition: false GI Gastroesophageal Reflux Disease Musc/skel Rheumatoid Arthritis Anesthetic Plan ASA status: 3 Anesthesia: Regional (specify below) Risk of > 500 ml blood loss (7ml/kg in children): No Medications/Allergies Home Medications Medication Instructions Recorded Confirmed Last Taken Type acetaminophen 650 mg 650 mg PO Q8H 03/28/19 12/28/22 12/27/22 History tablet,extended release (Tylenol Arthritis Pain) garlic 1,000 mg capsule 1,000 mg PO DAILY 03/28/19 12/28/22 12/04/22 History omega-3 fatty acids 1,000 mg 1,000 mg PO DAILY 03/28/19 12/28/22 12/04/22 History capsule (Fish Oil Concentrate) triamcinolone acetonide 0.1 % 1 applic topical DAILY PRN Dry Skin 12/04/20 12/28/22 05/31/22 History topical cream cholecalciferol (vitamin D3) 10 10 mcg PO DAILY 03/17/21 12/28/22 12/04/22 History mcg (400 unit) capsule aspirin 81 mg tablet,delayed 81 mg PO DAILY 11/27/22 12/28/22 12/18/22 History release etanercept 50 mg/mL (1 mL) 50 mg SUBCUT Q7D #12 mL 12/08/22 12/28/22 12/20/22 Rx subcutaneous pen injector (Enbrel SureClick) folic acid 800 mcg tablet 3,200 mcg PO DAILY 12/14/22 12/28/22 12/25/22 History hydroxychloroquine 200 mg tablet 400 mg PO DAILY 12/25/22 12/28/22 12/27/22 History methotrexate sodium 2.5 mg tablet 5 mg PO DIRECTED 12/25/22 12/28/22 12/20/22 History pantoprazole 40 mg tablet,delayed 40 mg PO DAILY 12/25/22 12/28/22 12/28/22 History release prednisone 2.5 mg tablet 2.5 mg PO DAILY 12/25/22 12/28/22 12/27/22 History prednisone 20 mg tablet 20 mg PO DAILY PRN joint pain flare 12/25/22 12/28/22 12/27/22 History tamsulosin 0.4 mg capsule 0.4 mg PO DAILY 12/25/22 12/28/22 12/27/22 History Allergies Allergy/AdvReac Type Severity Reaction Status Date / Time amoxicillin Allergy rash Verified 12/28/22 06:00 Current Medications Generic Name Dose Route Start Last Admin Trade Name Freq PRN Reason Stop Dose Admin Sodium Chloride 1,000 mls @ 30 mls/hr 12/28/22 06:00 12/28/22 06:33 Sodium Chloride 0.9% IV 12/29/22 05:59 30 mls/hr .Q24H ARMIN Administration PFSH Anesthesia Medical History BPH NOS w ur obs/LUTS Degenerative joint disease of right knee GERD (gastroesophageal reflux disease) High risk medication use Immunization counseling Lesion of bladder Osteoarthritis of knees, 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 Father , AT AGE 36-BRAIN TUMOR No problems noted. Other Cancer Diabetes Hypertension Lung disease Suicide Denies family history of Rheumatoid arthritis Lupus CAD (coronary artery disease) Chronic kidney disease (CKD) Stroke Social History Smoking and tobacco/nicotine status: never used tobacco/nicotine Alcohol intake: never Substance/Drug Use: never Adopted: No Lives independently: No Household members: spouse Marital status: Current occupational status: retired Data Anesthesia 12/28/22 06:32 12/28/22 06:32 Short CBC 12/28/22 Range/Units 06:32 WBC 6.79 (3.29-11.43) 10^3/uL Hgb 14.30 (11.27-16.99) g/dL Hct 43.1 (37-53) % MCV 98.2 (82-101) fl Plt Count 162 (157-399) 10^3/cmm Neut % (Auto) 61.0 % Neut # (Auto) 4.14 (1.8-7.7) 10^3/uL BMP 12/28/22 06:32 Sodium 140 Potassium 3.8 Chloride 106 Carbon Dioxide 24 BUN 21 Creatinine 0.9 Glucose 103 Calcium 9.3 Cardiac Studies: Sestamibi Stress Test (Cardiology) 08/24/22
--- NOTE | 2022-12-28 07:04 | ANES.PROC ---
Anesthesia Procedures Procedure/Date: 12/28/22 Nerve Block ^: Nerve Block 1: Main Anesthesia: spinal anesthesia block Time Out Performed: Yes Consent: requested by attending/covering physician, from patient, from other, risks and benefits reviewed and patient agrees to proceed Nerve block location: adductor canal (R) Anesthesia monitors applied: pulse oximetry, EKG, BP cuff and oxygen Nerve block position: supine Anesthetic Used: ropivicaine 0.5% (30 ml) and with decadron (4 mg) Ultrasound used to: recognize landmarks Nerve Stimulator Used?: No Interscalene/Femoral BLK: 4 stimuplex 21 g needle used for position and inplane approach, visualize local anesthetic spread and no vascular puncture identified Injection: neg aspiration of heme Patient Tolerated Procedure: well and no complications Complications: none
[2022-12-28] MEDS: ceFAZolin 2,000 MG in sodium chloride 0.9% (plus) 50 ML 100 MG IV ×2 (07:55→15:37)
[2022-12-28] MEDS: tranexamic acid 1,000 mg/10mL SDV 1000 MG (08:42)
[2022-12-28] MEDS: EPINEPHrine 1 mg/mL INJ XX (08:42)
[2022-12-28] MEDS: ROPivacaine 0.2% Premix 100 mL 200 MG INTRA-ARTI (08:42)
[2022-12-28] MEDS: ketorolac 30 mg/mL INJ XX (08:42)
[2022-12-28] MEDS: vancomycin 1,000 MG SDV 1000 MG (09:02)
--- NOTE | 2022-12-28 09:21 | P.BOP_ITS ---
Date of Procedure: 12/28/2022 Surgeon: Piero Martines DO Setter Machine(s): Du Martines PA-C Procedure(s) performed: Right total knee arthroplasty?Nayan robotic assisted Findings of the procedure(s): Patient had severe right knee degenerative joint disease, underwent right total knee arthroplasty without complications procedure went as planned Estimated blood loss: 20 mL Specimen(s) removed: Tibia and femur bone cuts removed Post-operative diagnosis: Right knee degenerative joint disease
--- NOTE | 2022-12-28 09:22 | PM.OP ---
Operative Report Date of procedure: December 28, 2022 Surgeon: Piero Martines DO Dental Assistant Instructor: Du Martines PA-C PA was necessary for assistance in this case with instrumentation retraction protection neurovascular structures as well as assistance in wound closure. Procedure: Preoperative diagnosis: Right knee degenerative joint disease Post-op diagnosis: Same Procedure done: Right total knee arthroplasty, cemented?robotic assisted Nayan Implants: Harsha triathlon size 7 femur CR cemented?right Harsha triathlon size? 7 tibia universal baseplate cemented [place] triathlon asymmetric patella size 38 mm Harsha triathlon polyethylene 12mm Surgeon: Piero Martines DO Estimated blood loss: 20 mL Tourniquet 61 minutes IV fluids: 700 mL Urine output: 400 Complications: None Condition: stable Disposition: floor Brief History: Patient is a 72-year-old male with with chronic?right knee degenerative joint disease.? Patient has been worked up in the outpatient setting in the orthopedic office at this point time through shared decision making given his [id number] arthritis as well as failed conservative treatment, and pt would like to proceed with a?right total knee arthroplasty.? Through shared decision making elected to proceed with surgical intervention for?right total knee arthroplasty.? We talked about continued conservative treatment and surgical intervention as far as the?risk benefits complications alternatives surgical and nonsurgical treatment options.? At this point time understanding patient?risks with surgery he agrees to proceed with surgical intervention.? Once again??risk with surgery include but are not limited to make it better make it worse blood clot, heart attack, stroke, on the table, infection, injury to nerves or vessels, persistent pain, arthrofibrosis, implant failure.? Understanding these?risks patient agrees to proceed with surgical intervention consent was obtained in the office.? All questions answered. Procedure: Patient was seen and evaluated in the preoperative holding area.? Consent was?reviewed and signed with patient with plan for?right total knee arthroplasty.? All questions answered.? Correct extremity marked.? Patient seen and evaluated by the anesthesia department and once cleared for surgery was taken back to the operative suite.? Patient was placed into a supine position on the OR table.? All bony prominences were well-padded.? Patient was appropriately secured to the bed.? Patient underwent anesthesia per the anesthesia department.? Patient?received spinal anesthesia and? Angela catheter was placed.? A nonsterile tourniquet was applied to the?right thigh.? At this point in time a final timeout performed.? Patient?received appropriate preoperative antibiotics and TXA. Next the?right lower extremity was then prepped and draped in standard orthopedic fashion. Esmarch tourniquet was used exsanguinate the?right lower extremity.? Tourniquet was insufflated to 250 mmHg. A standard anterior incision was made over midline of the knee.? Sharp scalpel excision through skin and subcutaneous tissue full-thickness skin flaps were made.? Fascia was elevated off of the extensor?retinaculum was stable with medial parapatellar arthrotomy was then made.? The performed standard sequential?releases..? Immediately on entry into the joint patient was found to have severe eburnated bone and tricompartmental arthritic changes noted.? With significant osteophyte formation.? Next the the patella was then stuffed and the knee was then flexed.?? Varghese was placed superiorly around the anterior aspect of the femur this was freed of synovium and I subsequently then placed by 2 femur pins to establish my femur arrays for the Eventtus?robot.? These were then placed bicortically and? femur array was then appropriately secured with appropriate visualization.? Next attention was turned towards the tibial?rays.? These were then drilled sequentially bicortically in parallel fashion and intraincisional.? I then placed my guide as well as my tibial array on in place.? This was appropriately secured and had excellent visualization with the Nayan?robot.? Next the tibial checkpoint as well as femur checkpoint were then placed.? At this point time I then subsequently established my head center as well as my medial lateral malleoli as well as my checkpoints.? Next utilizing standard Nayan technology I then mapped out the appropriate points and confirmation points around the femur as well as the tibia in standard fashion.? Once this was then done I then?removed all osteophytes in preparation for dynamic testing.? All osteophytes were?removed as well as I?removed the ACL and the PCL was excised due to its significant tearing and degeneration noted.? At this point time the knee was brought into full extension and we performed our standard evaluation of our gap balancing stressing his ligaments and extension as well as flexion appropriate adjustments were made to have appropriate gap balancing in both flexion and extension.? This plan for final counts.? We get a preoperative plan evaluating our implants which was a size 7 femur and a size 7 tibia.? Next we brought in the Eventtus?robot and sequentially made our femur cuts.? All excess bony cuts were then?removed.? Finally we made our tibial cut.? Once this was done a standard PCL?retractor was then placed into this position I excised the medial and lateral meniscus.? The tibial cut was then subsequently?removed all excess bony debris was?removed.? I then utilized a lamina wedding day coordinator and?remove the posterior osteophytes.? At this point time sized the tibia and confirmed this was a size 7. I utilized our blunt probe to establish?rotation of tibial implant.? Once this was done I then placed my tibia size 7 trial in appropriate position and then subsequently placed tibial pins to hold this into place placed a size 12 mm poly as well as a size 7 femur which was appropriately impacted in place knee was then subsequently brought into extension. Trials were then assessed with 12mm poly and this was stable with varus valgus stress in extension as well as had symmetrical translation when brought into flexion demonstrating symmetrical gaps. I had excellent balance gaps in flexion and extension with varus and valgus stresses.? At this point I was satisfied with these implants these were then verified and opened on the back table size 7 tibia, size 7 femur,? size 12 mm polythickness.? We did confirm appropriate gap balancing and stresses as well as alignment utilizing? Nayan and were satisfied with this plan.? ?At this point time with my trials in place I then towel clip the patella everted this made appropriate measurements subsequently utilizing freehand technique performed by patellar?resurfacing this was confirmed to be appropriate?resection and subsequently sized to be a 38 mm asymmetric.? My drill peg guides were then clamped and appropriate position and appropriate position in the patella for appropriate tracking and parallel with the joint.? Pegs were drilled trial implant was placed and the knee was then subsequently?ranged and found to have excellent patellar tracking.? Femur pegs were then drilled.? Satisfied with our tibial placement?rotation I then utilized the keel punch and prepped the tibia.? At this point time all of our trial implants were?removed.? All checkpoints as well as guidepins and arrays were?removed and appropriate counts made.? The wound bed? was thoroughly irrigated and dried and prepped for cementation.? Cement was mixed on the back table.? Once cement was?ready this was then covered onto the tibia and the tibial baseplate was then impacted and all excess cement was?removed.? Next the polyethylene was then impacted into place on the tibial baseplate.? Next cement was placed onto the femur as well as under the femur implants and impacted in to place and all excess cement was extruded and?removed.? Knee was taken into full extension? to clear all excess cement was?removed.? Warm saline was placed over the joint.? I then towel clip patella and dried for cementation. cemented the patella into place.? This was all clamped and the cement was allowed to cure.? Thorough irrigation performed with pulse lavage.? I then placed my periarticular injection while the cement was curing.? Once cured the knee was taken through?range of motion and had excellent stability and gaps were balanced in flexion and extension.? Tourniquet was then deflated. hemostasis satisfactory with electrocautery.? Thorough irrigation performed. Vancomycin powder placed in incision for infection prophylaxis given patient's on multiple antirheumatologic medications. Next I then subsequently closed the capsule with Ethibond suture as well as a?running strata fix suture.? Knee was then taken through?range of motion 30 times.? Next the skin was then closed in layered fashion of?running stratifix sutures of deep and subcutenous tissue and skin.? ?closed in flexion and Prineo glue was then placed over the incision this allowed to cure.? Incision was covered with Silverlon, with ABDs soft?roll and Isaias wrap.? Patient was then awakened from anesthesia and taken to PACU in stable condition. Disposition: Patient taken to PACU in stable condition will be admitted to the floor for pain control PT/OT weight-bear as tolerated?right lower extremity dressing changes as needed, DVT prophylaxis. Pain control. We will resume his rheumatologic medications per rheumatology's preoperative plan. Patient will?receive appropriate postoperative antibiotics. patient will be seen today by the internal medicine team for medical management.? Patient will follow up with the office in 2 weeks.? Patient understands agrees with current plan.? All questions answered.
--- NOTE | 2022-12-28 09:40 | PM.PACU ---
PACU note Narrative: Patient is a 72-year-old male that just underwent a right total knee arthroplasty. Pt transferred to PACU in stable condition. Dressing is dry. pt is awake and alert. pt can wiggle toes and plantarflex and dorsiflex foot. pt unable to perform straight leg raise due to pain and spinal. Distal pulses are palpable toes are warm and well-perfused. Cap refill is normal and under 2 seconds. unable to assess sensation due to residual spinal anesthesia. Pain is controlled. Exam: awake Disposition: admitted
--- NOTE | 2022-12-28 09:50 | XR_ITS ---
WS: [id number] Exam: XR knee RT 1-2V [id number] Date/Time of Exam: 12/28/2022 9:50 AM Reason For Exam: s/p R TKA Comparison 08/10/2022. Total knee arthroplasty is noted in satisfactory position. Postoperative changes in the adjacent soft tissues. IMPRESSION: 1. Total knee arthroplasty in satisfactory position.
--- NOTE | 2022-12-28 10:15 | ANE.PACU2 ---
Inpatient post-anesthesia follow up: Airway intact: Yes Vital signs: Temperature 96.6 F Pulse Rate 73 Respiratory Rate 16 Blood Pressure 149/74 Pulse Oximetry 96 Oxygen Delivery Me thod Room Air Oxygen Flow Rate Fraction of Inspir ed Oxygen Hydration adequate: Yes Nausea and vomiting: No Pain level: 1 Mental status: Baseline
--- NOTE | 2022-12-28 10:51 | PM.CONSULT ---
Providers/Reason For Consult Consulting Physician/Specialty*: Manuel Olson MD, hospitalist Reason for Consult*: Medical management Attending Physician: Piero Martines DO Primary Care Provider: True Bean DO History of Present Illness History of Present Illness Jhonatan Lewis is a 72 year old male with history of rheumatoid arthritis who presents to the hospital for right total knee arthroplasty. I discussed this case with the surgeon this morning, complications with surgery and estimated blood loss less than 20 cc. Patient reports pain is currently under control. He had his left knee done, in May without complications. He does report that the urinary catheter had to be reinserted once during his last hospital stay. Review of Systems General: Reports: 10 or more systems reviewed and unremarkable except in HPI and below Card: Denies: chest pain Resp: Denies: dyspnea GI: Denies: abdominal pain Medications/Allergies Home Medications Medication Instructions Recorded Confirmed Last Taken Type acetaminophen 650 mg 650 mg PO Q8H 03/28/19 12/28/22 12/27/22 History tablet,extended release (Tylenol Arthritis Pain) garlic 1,000 mg capsule 1,000 mg PO DAILY 03/28/19 12/28/22 12/04/22 History omega-3 fatty acids 1,000 mg 1,000 mg PO DAILY 03/28/19 12/28/22 12/04/22 History capsule (Fish Oil Concentrate) triamcinolone acetonide 0.1 % 1 applic topical DAILY PRN Dry Skin 12/04/20 12/28/22 05/31/22 History topical cream cholecalciferol (vitamin D3) 10 10 mcg PO DAILY 03/17/21 12/28/22 12/04/22 History mcg (400 unit) capsule aspirin 81 mg tablet,delayed 81 mg PO DAILY 11/27/22 12/28/22 12/18/22 History release etanercept 50 mg/mL (1 mL) 50 mg SUBCUT Q7D #12 mL 12/08/22 12/28/22 12/20/22 Rx subcutaneous pen injector (Enbrel SureClick) folic acid 800 mcg tablet 3,200 mcg PO DAILY 12/14/22 12/28/22 12/25/22 History hydroxychloroquine 200 mg tablet 400 mg PO DAILY 12/25/22 12/28/22 12/27/22 History methotrexate sodium 2.5 mg tablet 5 mg PO DIRECTED 12/25/22 12/28/22 12/20/22 History pantoprazole 40 mg tablet,delayed 40 mg PO DAILY 12/25/22 12/28/22 12/28/22 History release prednisone 2.5 mg tablet 2.5 mg PO DAILY 12/25/22 12/28/22 12/27/22 History prednisone 20 mg tablet 20 mg PO DAILY PRN joint pain flare 12/25/22 12/28/22 12/27/22 History tamsulosin 0.4 mg capsule 0.4 mg PO DAILY 12/25/22 12/28/22 12/27/22 History Allergies Allergy/AdvReac Type Severity Reaction Status Date / Time amoxicillin Allergy rash Verified 12/28/22 06:00 PFSH Acute PFSH: Medical History (Updated 12/28/22 @ 10:54 by Manuel Olson MD) BPH NOS w ur obs/LUTS Degenerative joint disease of right knee GERD (gastroesophageal reflux disease) High risk medication use Immunization counseling Lesion of bladder Osteoarthritis of knees, 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 Father , AT AGE 36-BRAIN TUMOR No problems noted. Other Cancer Diabetes Hypertension Lung disease Suicide Denies family history of Rheumatoid arthritis Lupus CAD (coronary artery disease) Chronic kidney disease (CKD) Stroke Social History Smoking and tobacco/nicotine status: never used tobacco/nicotine Alcohol intake: never Substance/Drug Use: never Adopted: No Lives independently: No Household members: spouse Marital status: Current occupational status: retired Other PFSH information: Supplemental PFSH Information: History of left total knee arthroplasty Vitals/I&O/Wt Last Vital Signs Temp 97 F L 12/28/22 09:38 Pulse 82 12/28/22 10:14 Resp 16 12/28/22 10:14 BP 134/58 12/28/22 10:14 Pulse Ox 99 12/28/22 10:14 O2 Del Method Room Air 12/28/22 10:14 12/27/22 12/28/22 12/28/22 22:59 06:59 14:59 Intake Total 100 / 100 250 / 250 Output Total 420 / 420 Balance 100 / 100 -170 / -170 Weight last 48 hrs Weight 106.594 kg Physical Exam Narrative: General exam is a white male, no distress HEENT: Atraumatic normocephalic. Oropharynx clear Neck is supple no lymphadenopathy thyromegaly Cardiovascular regular rhythm without murmur Lungs clear no wheezing or crackles Abdomen is soft with positive bowel sounds. No obvious organomegaly exams deferred Extremities no cyanosis, edema, right knee with dressing. Skin no rash Neuro no focal deficits, can dorsiflex right lower extremity without difficulty. Urinary Catheter Management: Angela: Cath Placed During This Visit: yes Urinary Catheter Date of Insertion: 12/28/22 Urinary Catheter Time of Insertion: 07:18 Data 12/28/22 06:32 12/28/22 06:32 A&P Assessment and plan (1) Degenerative joint disease of right knee: Patient is directly postoperative right total knee arthroplasty, surgery without complications. Pain control per orthopedic surgeon Therapy consultations CBC, BMP tomorrow to monitor for postoperative anemia and electrolyte abnormality postsurgery Apixaban will be adequate for DVT prophylaxis (2) Seropositive rheumatoid arthritis of multiple sites: As with previous surgery, continue the patient's hydroxychloroquine Prednisone will be continued currently 2.5 mg daily I will continue to follow along with you (3) GERD (gastroesophageal reflux disease): Reinitiate the patient's Protonix Plan Multiple other medical problems as outlined in past medical history Thank you for this consultation Consult Attestations Medical Necessity Statement: As per primary Diagnoses Degenerative joint disease of right knee M17.11 Seropositive rheumatoid arthritis of multiple sites M05.79 GERD (gastroesophageal reflux disease) K21.9 Time Spent (min) 38
[2022-12-28] MEDS: lactated ringers 1,000 ML 100 ML IV ×2 (12:30→21:36)
[2022-12-28] MEDS: chlorhexidine gluconate 0.12% Btl 473 mL 30 ML MUCOUS MEM ×3 (12:31→21:37)
[2022-12-28] MEDS: TRAMadol 50 mg Tablet PO (12:34)
[2022-12-28] MEDS: tranexamic acid 1,000 MG/100 ML PREMIX 600 MG IV (17:25)
[2022-12-28] MEDS: iron polysaccharide complex 150 mg Capsule PO (17:25)
[2022-12-28] MEDS: docusate sodium 100 mg Capsule PO (17:25)
[2022-12-28] MEDS: calcium carb-vit d 600mg/400unit 1 Tablet 1 EACH PO (17:25)
[2022-12-28] MEDS: mupirocin oint 22 gm 1 APPLIC NASAL (17:37)
[2022-12-29] MEDS: ceFAZolin 2,000 MG in sodium chloride 0.9% (plus) 50 ML 100 MG IV ×2 (00:57→09:52)
[2022-12-29 03:54] VITALS: BP 159/75; PULSE 18; RESP 58; TEMP 36.3; O2SAT 97
[2022-12-29] MEDS: TRAMadol 50 mg Tablet PO ×2 (03:54→14:54)
[2022-12-29] MEDS: acetaminophen 1,000 MG/100 ML PIGGYBACK 400 MG IV (05:36)
[2022-12-29 05:43] LABS: Basophils % 0.1 %; Eosinophils % 0.1 %; Hematocrit 40.4 % (37-53); Lymphocytes # 1.4 10^3/uL (0.8-4.8); Mean Corpuscular HGB Conc 32.7 g/dL (30-55); Mean Corpuscular Hemoglobin 33.4 pg (27-33); Mean Corpuscular Volume 102.3 fl (82-101); Mean Platelet Volume 9.8 fL (7.4-10.4); Monocytes # 1.4 10^3/uL (0.2-0.9); Monocytes % 10.6 %; Neutrophils # 9.96 10^3/uL (1.8-7.7); Neutrophils % 77.9 %; Nucleated Red Blood Cells % 0 %; Platelet Count 148 10^3/cmm (157-399); Red Blood Count 3.95 10^6/uL (3.85-5.65); White Blood Count 12.78 10^3/uL (3.29-11.43)
[2022-12-29 06:06] LABS: Anion Gap 13.3 (5-19); Blood Urea Nitrogen 16 mg/dL (8-23); Calcium 9.1 mg/dL (8.5-10.5); Carbon Dioxide 26 mmol/L (22-29); Chloride 105 mmol/L (98-107); Glucose 95 mg/dL (65-115); Osmolality Calculated 291 mOsm/kg (285-295); Potassium 4.3 mmol/L (3.5-5.1); Sodium 140 mmol/L (136-145)
[2022-12-29 07:22] VITALS: BP 160/81; PULSE 60; RESP 17; TEMP 36.7; O2SAT 97
--- NOTE | 2022-12-29 07:57 | PM.PN ---
Subjective Subjective: Jhonatan reports his knee hurts a little bit more today, but otherwise doing okay. Trying to not take narcotic instead taking Ultram as narcotics make him nauseous. Medications: Reviewed: Yes Vitals/I&O/Wt Last Vital Signs Temp 98.1 F 12/29/22 07:22 Pulse 60 12/29/22 07:22 Resp 17 12/29/22 07:22 BP 160/81 12/29/22 07:22 Pulse Ox 97 12/29/22 07:22 O2 Del Method Room Air 12/29/22 07:22 12/28/22 12/29/22 12/29/22 22:59 06:59 14:59 Intake Total 2134.5 / 3244.5 150 / 3394.5 1000 / 1000 Output Total 700 / 1120 600 / 1720 Balance 1434.5 / 2124.5 -450 / 1674.5 1000 / 1000 Weight last 48 hrs Weight 106.594 kg Physical Exam Narrative: General exam no distress Neck is supple no lymphadenopathy thyromegaly Cardiovascular regular rhythm without murmur Lungs clear no wheezing or crackles Abdomen is soft with positive bowel sounds. No obvious organomegaly Extremities no cyanosis, edema, right knee with dressing. No foot drop Urinary Catheter Management: Angela: Cath Placed During This Visit: yes, but has since been removed by the nurse Reason for Continuing Indwelling Catheter: Decision to DC Catheter Urinary Catheter Date of Insertion: 12/28/22 Urinary Catheter Time of Insertion: 07:18 Date Urinary Catheter Removed: 12/28/22 Time Urinary Catheter Discontinued: 21:52 Data 12/29/22 05:18 12/29/22 05:18 A&P Assessment and plan (1) Degenerative joint disease of right knee: Patient is postoperative day #1 right total knee arthroplasty, surgery without complications. Pain is under fair control Therapy consultations appreciated Laboratory reviewed. No significant postoperative anemia Apixaban will be adequate for DVT prophylaxis Patient indicates he will likely be discharged today. He may resume his home medications, resume his methotrexate and etanercept when rheumatology/Ortho believes this is possible following his total knee arthroplasty. (2) Seropositive rheumatoid arthritis of multiple sites: As with previous surgery, continue the patient's hydroxychloroquine Prednisone will be continued currently 2.5 mg daily (3) GERD (gastroesophageal reflux disease): Reinitiate the patient's Protonix Plan Multiple other medical problems as outlined in past medical history Thank you for this consultation Attestations Medical Necessity Statement*: As per primary Diagnoses Degenerative joint disease of right knee M17.11 Seropositive rheumatoid arthritis of multiple sites M05.79 GERD (gastroesophageal reflux disease) K21.9 Time Spent (min) 15
--- NOTE | 2022-12-29 08:56 | PC.CHAP ---
Pastoral Care Encounter/Spiritual Assessment Type of Contact [] Declined x ray service engineer visit [] Patient/Family/Request visit [] Outpatient visit [] Follow-up visit [] Physician referral [] Code/Alert [x] Routine visit [] Staff referral [] Actively dying [] Patient sleeping [x] Family support [] [] Out of room [] Palliative care [] [] Receiving care in room [] Pre-surgical visit [] Trauma [] Long length of stay [] ICU visit [] Other: Relational/Emotional Strength [x] Patient feels connected with others/family/visitors/staff [] Distress [] Loneliness/isolation [] Abandonment Spirituality of Patient [x] Person of Rosita [] Attends Druze of their Rosita [x] Believes in Prayer [] Reads Bible or Orthodox materials [] There are Spiritual issues to be addressed Cardiac Cath Lab Manager Interventions [x] Prayer [x] Active listening [] Non-anxious presence [x] Spiritual/emotional support [] Crisis/trauma care [] Spiritual counseling [] Bereavement support [] Provided bereavement packet [] Provided Bible/devotional materials [] Provided toy/stuffed animal, coloring book to patient or family member [] Provided Communion [] Anointing/[place] [] Salvation [x] Completed spiritual assessment [] Other: Impact on Illness or Injury [] Angry [] Fearful [] Anxious [] Often cries [] Exhaustion [] Unable to work [] Unable to attend orthodoxy [] Unable to walk/stand [] Unable to read [] Unable to drive [] Unable to eat/drink [] Unable to sleep [] Unable to be with family [] Patient intubated [] Other: Summary Time spent with patient 10 min
[2022-12-29 09:39] VITALS: RESP 16
[2022-12-29] MEDS: oxyCODONE 5 mg IR Tab/Cap PO (09:39)
[2022-12-29] MEDS: hydroxychloroquine 200 mg Tablet 400 MG PO (09:53)
[2022-12-29] MEDS: multivitamin therapeutic Tablet 1 TAB PO (09:53)
[2022-12-29] MEDS: aspirin 81 mg EC Tablet PO (09:53)
[2022-12-29] MEDS: pantoprazole DR 40 mg Tablet PO (09:54)
[2022-12-29] MEDS: calcium carb-vit d 600mg/400unit 1 Tablet 1 EACH PO (09:54)
[2022-12-29] MEDS: predniSONE 5 mg Tablet 2.5 MG PO (09:54)
[2022-12-29] MEDS: iron polysaccharide complex 150 mg Capsule PO (09:54)
[2022-12-29] MEDS: apixaban 5 mg Tablet 2.5 MG PO (09:55)
[2022-12-29] MEDS: chlorhexidine gluconate 0.12% Btl 473 mL 30 ML MUCOUS MEM (10:13)
[2022-12-29] MEDS: mupirocin oint 22 gm 1 APPLIC NASAL (10:14)
[2022-12-29] MEDS: tamsulosin 0.4 mg Capsule PO (10:14)
[2022-12-29] MEDS: docusate sodium 100 mg Capsule PO (10:15)
[2022-12-29 11:09] VITALS: BP 168/69; PULSE 65; RESP 17; TEMP 36.9; O2SAT 97
--- NOTE | 2022-12-29 12:13 | PM.PN ---
Subjective Subjective: Patient is a 72-year-old male that is 1 day postop right total knee arthroplasty. Denies any acute events overnight. Patient's pain is well controlled. He has seen physical therapy today and has gotten up and ambulated multiple times. Denies any other complaints. Vitals/I&O/Wt Last Vital Signs Temp 98.4 F 12/29/22 11:09 Pulse 65 12/29/22 11:09 Resp 17 12/29/22 11:09 BP 168/69 12/29/22 11:09 Pulse Ox 97 12/29/22 11:09 O2 Del Method Room Air 12/29/22 11:09 12/28/22 12/29/22 12/29/22 22:59 06:59 14:59 Intake Total 2134.5 / 3244.5 150 / 3394.5 1410 / 1410 Output Total 700 / 1120 600 / 1720 Balance 1434.5 / 2124.5 -450 / 1674.5 1410 / 1410 Weight last 48 hrs Weight 235 lb Physical Exam Const: COMMON NORMALS: no acute distress and alert Resp: COMMON NORMALS: normal respiratory effort EFFORT & INSPECTION: Yes able to speak in complete sentences and No respiratory distress Extremity: NARRATIVE EXTREMITY EXAM: Right leg-- Dressing is dry, intact and in place. pt is awake and alert. pt can wiggle toes and plantarflex and dorsiflex foot. pt able to perform straight leg raise, Femoral nerve intact. Distal pulses are palpable toes are warm and well-perfused. Sensation to foot is intact. Pain is controlled. Neuro: SENSORIUM/ORIENTATION: Yes alert Urinary Catheter Management: Angela: Cath Placed During This Visit: yes, but has since been removed by the nurse Reason for Continuing Indwelling Catheter: Decision to DC Catheter Urinary Catheter Date of Insertion: 12/28/22 Urinary Catheter Time of Insertion: 07:18 Date Urinary Catheter Removed: 12/28/22 Time Urinary Catheter Discontinued: 21:52 Data 12/29/22 05:18 12/29/22 05:18 A&P Assessment and plan (1) Status post total right knee replacement using cement: Plan Plan: -Imaging and Labs reviewed -Hospitalist on board for medical management. -DVT prophylaxis- elquis 2.5 mg BID -Weight-bear as tolerated on right leg -Pain control -PT Pt is doing well 1 day postop Right total knee replacement. Pt is cleared for discharge home today. Attestations Medical Necessity Statement*: Ongoing care for right total knee arthroplasty Coding Level of Care Code Acute Code for Chg Fwd Diagnoses Status post total right knee replacement using cement Z96.651
[2022-12-29 14:58] VITALS: BP 168/69; PULSE 65; RESP 17; TEMP 36.9; O2SAT 97
--- NOTE | 2022-12-29 23:04 | P.DS_ITS ---
Discharge Providers Date of Admission: 12/28/22 10:03 Date of Discharge: December 29, 2022 Attending Provider at Admission: Piero Martines DO Attending Provider at Discharge: Piero Martines DO Consults: Dr. Olson?hospitalist Primary Care Provider: True Bean DO Diagnoses at Discharge Discharge Diagnosis (1) Status post total right knee replacement using cement: Status: Acute Reason for Visit Reason for Visit: M17.11 Brief History: Status post right total knee arthroplasty Hospital Course Hospital Course Patient presented to the preoperative holding area with plan for right total knee arthroplasty after patient has been worked up in the outpatient setting for failed conservative treatment of right knee degenerative joint disease.? Once cleared by anesthesia for surgery patient subsequently was taken back to the operative suite? underwent? anesthesia per anesthesia department and then subsequently underwent a right total knee arthroplasty.? Procedure was performed without any complications patient was taken to PACU in stable condition patient? recovered well in PACU and then was admitted to the floor postoperatively internal medicine was consulted and on board for medical management and assistance with care.? Patient received appropriate PT/OT, postoperative antibiotics, postoperative TXA, pain control, postoperative DVT prophylaxis.? Elevation and ice.? Patient encouraged for knee range of motion allowed weightbearing as tolerated to the operative lower extremity.? dressing was changed as needed, labs were monitored daily.?? Patient recovered well postoperatively and worked well and progressed well with therapy.? It was determined on postoperative day 1 the patient was stable for discharge from an orthopedic standpoint and medicine.? Patient was comfortable with discharge and plan was discharged home.? Patient received appropriate discharge instructions as well as pain medication and DVT prophylaxis postoperatively.? Patient to hold Enbrel per rheumatology as well as orthopedic recommendations until incision heals. May resume other rheumatologic medications..? Given appropriate instructions for? dressing management.? Patient will follow-up with Dr. Martines/orthopedics in the office in 2 weeks.? All questions answered.? Understand if there is any issues questions or concerns and contact the office. Physical Exam Const: COMMON NORMALS: no acute distress and alert Resp: COMMON NORMALS: normal respiratory effort EFFORT & INSPECTION: Yes able to speak in complete sentences and No respiratory distress Extremity: NARRATIVE EXTREMITY EXAM: Right leg-- Dressing is dry, intact and in place. pt is awake and alert. pt can wiggle toes and plantarflex and dorsiflex foot. pt able to perform straight leg raise, Distal pulses are palpable toes are warm and well-perfused. Sensation to foot is intact. Pain is controlled. Neuro: SENSORIUM/ORIENTATION: Yes alert Urinary Catheter Management: Angela: Cath Placed During This Visit: yes, but has since been removed by the nurse Reason for Continuing Indwelling Catheter: Decision to DC Catheter Urinary Catheter Date of Insertion: 12/28/22 Urinary Catheter Time of Insertion: 07:18 Date Urinary Catheter Removed: 12/28/22 Time Urinary Catheter Discontinued: 21:52 Discharge Data Studies Completed and Pending Completed Studies During Hospitalization Category Date Time Status XR knee RT 1-2V 14681 Routine Exams 12/28/22 09:50 Completed Laboratory Results WBC 12.78 10^3/uL (3.29-11.43) H 12/29/22 05:18 RBC 3.95 10^6/uL (3.85-5.65) 12/29/22 05:18 Hgb 13.20 g/dL (11.27-16.99) 12/29/22 05:18 Hct 40.4 % (37-53) 12/29/22 05:18 MCV 102.3 fl (82-101) H 12/29/22 05:18 MCH 33.4 pg (27-33) H 12/29/22 05:18 MCHC 32.7 g/dL (30-55) 12/29/22 05:18 RDW 13.0 % (12.1-15.1) 12/29/22 05:18 Plt Count 148 10^3/cmm (157-399) L 12/29/22 05:18 MPV 9.8 fL (7.4-10.4) 12/29/22 05:18 Neut % (Auto) 77.9 % 12/29/22 05:18 Lymph % (Auto) 11.0 % 12/29/22 05:18 [place] % (Auto) 10.6 % 12/29/22 05:18 Eos % (Auto) 0.1 % 12/29/22 05:18 Baso % (Auto) 0.1 % 12/29/22 05:18 Neut # (Auto) 9.96 10^3/uL (1.8-7.7) H 12/29/22 05:18 Lymph # (Auto) 1.4 10^3/uL (0.8-4.8) 12/29/22 05:18 [place] # (Auto) 1.4 10^3/uL (0.2-0.9) H 12/29/22 05:18 Eos # (Auto) 0.0 10^3/uL (0.0-0.8) 12/29/22 05:18 Baso # (Auto) 0.0 10^3/uL (0.0-0.1) 12/29/22 05:18 Nucleated RBC % (auto) 0 % 12/29/22 05:18 Nucleated RBCs # 0.0 /100WBC 12/29/22 05:18 Sodium 140 mmol/L (136-145) 12/29/22 05:18 Potassium 4.3 mmol/L (3.5-5.1) 12/29/22 05:18 Chloride 105 mmol/L (98-107) 12/29/22 05:18 Carbon Dioxide 26 mmol/L (22-29) 12/29/22 05:18 Anion Gap 13.3 (5-19) 12/29/22 05:18 BUN 16 mg/dL (8-23) 12/29/22 05:18 Creatinine 0.8 mg/dL (0.7-1.2) 12/29/22 05:18 GFR Calculation Not Reportable 12/29/22 05:18 Glucose 95 mg/dL (65-115) 12/29/22 05:18 Calculated Osmolality 291 mOsm/kg (285-295) 12/29/22 05:18 Calcium 9.1 mg/dL (8.5-10.5) 12/29/22 05:18 Blood Type A Positive 12/28/22 06:32 Rho(D) Type Rh positive 12/28/22 06:32 Antibody Screen Negative 12/28/22 06:32 Vitals Last Vital Signs Temp 98.4 F 12/29/22 14:58 Pulse 65 12/29/22 14:58 Resp 17 12/29/22 14:58 BP 168/69 12/29/22 14:58 Pulse Ox 97 12/29/22 14:58 O2 Del Method Room Air 12/29/22 11:09 Discharge Plan Discharge Patient Disposition: Home Condition: Stable Prescriptions: New Eliquis 2.5 mg tablet 2.5 mg PO BID 14 Days Qty: 28 0RF ondansetron 4 mg tablet,disintegrating 4 mg PO Q8H PRN (Reason: nausea and vomiting) 3 Days Qty: 9 0RF oxycodone 5 mg tablet 5 mg PO Q6H PRN (Reason: pain postop) 7 Days Qty: 28 0RF Continued cholecalciferol (vitamin D3) 10 mcg (400 unit) capsule 10 mcg PO DAILY omega-3 fatty acids [Fish Oil Concentrate] 1,000 mg capsule 1,000 mg PO DAILY garlic 1,000 mg capsule 1,000 mg PO DAILY acetaminophen [Tylenol Arthritis Pain] 650 mg tablet extended release 650 mg PO Q8H triamcinolone acetonide 0.1 % cream 1 applic topical DAILY PRN (Reason: Dry Skin) folic acid 800 mcg tablet 3,200 mcg PO DAILY aspirin 81 mg tablet,delayed release (DR/EC) 81 mg PO DAILY prednisone 20 mg tablet 20 mg PO DAILY PRN (Reason: joint pain flare) Rx Instructions: take 1 tab daily for 3-7 days as needed for arthritis flare PO PRN; methotrexate sodium 2.5 mg tablet 5 mg PO DIRECTED Rx Instructions: TAKE 2 TABLETS BY MOUTH EVERY 7 DAYS tamsulosin 0.4 mg capsule 0.4 mg PO DAILY Rx Instructions: TAKE 1 CAPSULE BY MOUTH EVERY DAY prednisone 2.5 mg tablet 2.5 mg PO DAILY Rx Instructions: TAKE 1 TABLET BY MOUTH EVERY DAY pantoprazole 40 mg tablet,delayed release (DR/EC) 40 mg PO DAILY Rx Instructions: TAKE 1 TABLET BY MOUTH EACH MORNING 30 MINUTES BEFORE MEAL DAILY hydroxychloroquine 200 mg tablet 400 mg PO DAILY Rx Instructions: TAKE 1 TABLET BY MOUTH TWICE A DAY Held Enbrel SureClick 50 mg/mL (1 mL) pen injector 50 mg SUBCUT Q7D Qty: 12 1RF Hold Instructions: Resume on 01/15/23. hold for 2 wks/until incision heals and seen by Dr Martines Discharge Orders: Discharge Order (Routine); Ordered 12/29/22 Ordered By: Piero Martines Referrals: Piero Martines DO [Physician] - 01/14/23 9:00 am Discharge Diet: Advance as tolerated Discharge Activity: Limit activity as instructed Patient Instructions: Oxycodone, Rapid Release (By mouth), Apixaban (By mouth), Total Knee Replacement (GEN), Joint Replacement Stoplight Activity Restrictions/Additional Instructions: Orthopedic discharge instructions keep incisions clean dry and intact, leave Silverlon bandage dressings on in place for 7 days after that may rinse incisions with warm soapy water pat dry and redress with a dry dressing. Patient may weight-bear as tolerate to the operative extremity Utilize crutches as needed Encourage knee range of motion Ice and elevate as needed for pain and swelling Take pain medication as prescribed Take antinausea medication as needed Hold Enbrel (antirheumatologic medication per rheumatology's request approximately 2 weeks/until the incisions healed) The prescribed Eliquis twice daily for the next 14 days for blood clot prevention May supplement for pain with ibuprofen [id number] as needed No baths or soaks Follow-up in the orthopedic office in 2 weeks Contact the office for any questions or concerns Discharge Attestations Time Spent in Discharge Care*: less than 30 min Quality Metrics Clinical Quality Measures [ No reported AMI, CVA or VTE this stay] Coding Level of Care Code Acute Code for Chg Fwd Diagnoses Status post total right knee replacement using cement Z96.651 Time Spent (min) 25
== END 2022-12-29 14:58 | disposition home health service (06) ==
LOC: MEDSURG 10:03
PROVIDERS: Physician Assistant; Admitting Provider Student in an Organized Health Care Education/Training Program; PCP Internal Medicine; Visit Provider Student in an Organized Health Care Education/Training Program
PROC: 8E0Y0CZ Robotic Assisted Procedure of Lower Extremity, Open Approach (ICD-10-PCS; CPT 27447; principal; 2022-12-28 07:00)
DX: M05.761 Rheumatoid arthritis with rheumatoid factor of right knee without organ or systems involvement (principal); N40.1 Benign prostatic hyperplasia with lower urinary tract symptoms; N13.8 Other obstructive and reflux uropathy; K21.9 Gastro-esophageal reflux disease without esophagitis
CPT/HCPCS: 20985; 27447; 36415; 51702; 73560; 80048; 85025; 86850; 86900; 97110; 97116; 97161; 97165; 97530; C1776; G0378; J0131; J0171; J0690; J1100; J1885; J2250; J2371; J2704; J2795; J3370; J7030; J7120; J7512; P9045

== ENCOUNTER → 2023-01-14 09:11 | Outpatient (BNVA) | payer MEDICARE, OTHER, SELFPAY | PROVIDERS: PCP Internal Medicine; Visit Provider Physician Assistant | DX: Z96.651 Presence of right artificial knee joint (principal) | CPT/HCPCS: 73560; 73565; 99024 ==

== ENCOUNTER 2023-01-25 11:30 | Outpatient (RCR) | payer MEDICARE, OTHER, SELFPAY | END 2023-02-14 23:59 | disposition home or self-care (01) | LOC: SPT 11:30 | PROVIDERS: PCP Internal Medicine; Visit Provider Student in an Organized Health Care Education/Training Program | DX: Z47.1 Aftercare following joint replacement surgery (principal); Z96.651 Presence of right artificial knee joint | CPT/HCPCS: 97110; 97161 ==

== ENCOUNTER 2023-02-15 06:00 | Outpatient (RCR) | payer MEDICARE, OTHER, SELFPAY | END 2023-03-17 23:59 | disposition home or self-care (01) | LOC: SPT 06:00 | PROVIDERS: PCP Internal Medicine; Visit Provider Student in an Organized Health Care Education/Training Program | DX: Z47.1 Aftercare following joint replacement surgery (principal); Z96.651 Presence of right artificial knee joint | CPT/HCPCS: 97110 ==

== ENCOUNTER → 2023-02-23 09:19 | Outpatient (BNVA) | payer MEDICARE, OTHER, SELFPAY | PROVIDERS: PCP Internal Medicine; Visit Provider Student in an Organized Health Care Education/Training Program | DX: Z96.651 Presence of right artificial knee joint (principal) | CPT/HCPCS: 73560; 73565; 99024 ==

== ENCOUNTER → 2023-03-30 13:16 | Outpatient (BNVA) | payer MEDICARE, OTHER, SELFPAY | PROVIDERS: PCP Internal Medicine; Visit Provider Internal Medicine Rheumatology | DX: M05.79 Rheumatoid arthritis with rheumatoid factor of multiple sites without organ or systems involvement (principal); Z79.899 Other long term (current) drug therapy; Z71.85 Encounter for immunization safety counseling; M17.0 Bilateral primary osteoarthritis of knee | CPT/HCPCS: 99214 ==

== ENCOUNTER → 2023-06-17 15:29 | Outpatient (BNVA) | payer MEDICARE, OTHER, SELFPAY | PROVIDERS: PCP Internal Medicine; Visit Provider Student in an Organized Health Care Education/Training Program | DX: Z96.651 Presence of right artificial knee joint (principal); Z96.652 Presence of left artificial knee joint | CPT/HCPCS: 73560; 73565; 99213 ==

== ENCOUNTER → 2023-08-10 14:44 | Outpatient (BNVA) | payer MEDICARE, OTHER, SELFPAY | PROVIDERS: PCP Internal Medicine; Visit Provider Internal Medicine Rheumatology | DX: M05.79 Rheumatoid arthritis with rheumatoid factor of multiple sites without organ or systems involvement (principal); Z79.899 Other long term (current) drug therapy; Z71.85 Encounter for immunization safety counseling; M17.0 Bilateral primary osteoarthritis of knee; Z11.1 Encounter for screening for respiratory tuberculosis; Z11.59 Encounter for screening for other viral diseases; Z96.652 Presence of left artificial knee joint | CPT/HCPCS: 99214 ==

== ENCOUNTER → 2024-03-21 14:42 | Outpatient (BNVA) | payer MEDICARE, OTHER, SELFPAY | PROVIDERS: PCP Internal Medicine; Visit Provider Internal Medicine Rheumatology | DX: M05.79 Rheumatoid arthritis with rheumatoid factor of multiple sites without organ or systems involvement (principal); Z79.899 Other long term (current) drug therapy; Z71.85 Encounter for immunization safety counseling; M17.0 Bilateral primary osteoarthritis of knee | CPT/HCPCS: 99214 ==

== ENCOUNTER 2024-05-31 20:00 | Outpatient (CLI) | payer MEDICARE, OTHER, SELFPAY | END 2024-05-31 20:01 | disposition home or self-care (01) | LOC: SLEEP 06-01 01:42 | PROVIDERS: PCP Internal Medicine; Visit Provider Family Medicine | DX: G47.33 Obstructive sleep apnea (adult) (pediatric) (principal) | CPT/HCPCS: 95810 ==

== ENCOUNTER → 2024-06-13 14:35 | Outpatient (BNVA) | payer MEDICARE, OTHER, SELFPAY | PROVIDERS: PCP Internal Medicine; Visit Provider Student in an Organized Health Care Education/Training Program | DX: Z96.651 Presence of right artificial knee joint (principal); Z96.652 Presence of left artificial knee joint; Z48.89 Encounter for other specified surgical aftercare | CPT/HCPCS: 73560; 73565; 99213 ==

== ENCOUNTER → 2024-06-27 14:00 | Outpatient (BNVA) | payer MEDICARE, OTHER, SELFPAY | PROVIDERS: PCP Internal Medicine; Visit Provider Internal Medicine Rheumatology | DX: M05.79 Rheumatoid arthritis with rheumatoid factor of multiple sites without organ or systems involvement (principal); Z79.899 Other long term (current) drug therapy; Z71.85 Encounter for immunization safety counseling; M17.0 Bilateral primary osteoarthritis of knee | CPT/HCPCS: 99214 ==

== ENCOUNTER 2024-08-14 20:00 | Outpatient (CLI) | payer MEDICARE, OTHER, SELFPAY | END 2024-08-14 20:01 | disposition home or self-care (01) | LOC: SLEEP 22:35 | PROVIDERS: PCP Internal Medicine; Referring Provider Internal Medicine; Visit Provider Internal Medicine Pulmonary Disease | DX: G47.33 Obstructive sleep apnea (adult) (pediatric) (principal) | CPT/HCPCS: 95811 ==

== ENCOUNTER 2024-09-11 20:56 | Emergency (ER) | payer MEDICARE, OTHER, SELFPAY ==
[2024-09-11 20:59] VITALS: BP 113/72; PULSE 85; RESP 18; TEMP 36.9; O2SAT 94
--- OUTSIDE RECORDS SUMMARY | 2024-09-11 21:06 | XMS_ITS | Encounter Summary ---
Author Organization [facility] Address [address] [place] [address] Care Team Providers Care Tunnel Mucker Name Role Phone True Bean DO Primary Care Provide r Encounter Details Date Type Department Care Team (Late st Contact Info) Description 02/23/2005 Outpatient Historical [facility] Rheumatology- [facility] [address] [place] [id number] Arnel Pittman DO [address] [facility] [address] [place] [address] RHEUMATOID ARTHRITIS (CMS/FORMERLY [facility]) (Primary Dx) Social History Tobacco Use Types Packs/Day Years Used Date Smoking Tobacco: Never Assessed Sex and Gender Information Value Date Recorded Sex Assigned at Not on file 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
--- OUTSIDE RECORDS SUMMARY | 2024-09-11 21:06 | XMS_ITS | Clinical Summary ---
Author Organization [facility] [place] Address [address] [place] [address] Phone Care Team Providers Care It Consulting Manager Name Role Phone True Bean Primary Care Provide r Allergies Active Allergy Reactions Criticality Noted Date Comments Amoxicillin Hives High 03/09/2008 Cephalexin Rash,Itching High 06/16/2010 Medications glucosamine-cho ndroitin (ARTHX DS) 500-400 mg Capsule Take 1 Capsule by mouth. 0 Active predniSONE (DELTASONE) 2.5 mg tablet TAKE 1 TABLET BY MOUTH ONCE DAILY WITH BREAKFAST FOR RHEUMATOID ARTHRITIS 30 Tablet 2 1 Active predniSONE (DELTASONE) 2.5 mg tablet TAKE 1 TABLET BY MOUTH ONCE DAILY WITH BREAKFAST FOR RHEUMATOID ARTHRITIS 30 Tablet 5 1 Active methotrexate (RHEUMATREX) 2.5 mg Tablet TAKE 4 TABLETS BY MOUTH ONCE A WEEK 16 Tablet 1 Active atorvastatin (LIPITOR) 20 mg tablet Take 20 mg by mouth Daily LATE. 6 Active raNITIdine (ZANTAC) 150 mg tablet Take 150 mg by mouth 2 times daily. 6 Active Active Problems Problem Noted Date Diagnosed Date Long-Term (Current) Use of MTX/Enbrel 03/09/2008 Overview (06/13/2020): No evidence of developing side effects and will continue to closely monitor lab as ordered every 4 weeks. Rheumatoid Arthritis MTX/Enbrel/prednisone 03/09 Overview (06/13/2020): Well controlled on current treatment plan and have encouraged to try to reduce prednisone possibly to 5 mg 1/2 tablet daily if tolerated. Resolved Problems Problem Noted Date Diagnosed Date Resolved Date Leukopenia WBC reduced to 3,600 (06/10/2012) 06/20/2012 06/27/2013 Overview (06/12/2020): Will have methotrexate held 1 week and then reduce dose to 4 tablets (10 mg) weekly, continue OTC folic acid and start post MTX dose Leucovorin. Rheumatoid arthritis(714.0) 03/09/2008 Encounter for long-term (cur rent) use of other medications 03/09/2008 Nonspecific elevation of lev els of transaminase or lactic acid dehydrogenase (LDH) 08/24/2008 Immunizations Immunization Administration Dates Next Due (ADACEL/BOOSTRIX)(10 YR UP) TDAP VACCINE, 0.5ML, IM 07/17/2009 (Stayful)(12 YR UP) COVID-19 VACCINE - EMERGENCY USE AUTHORIZATION, MRNA, [id number](PF) 30 MCG/0.3 ML IM SUSP 04/12/2020,03/15/2020 Influenza Seasonal Unspecified Formulation IM ,10/30/2009 Skin Test TB 03/09/2008,03/07/2007 Family History Medical History Relation Name Comments Diabetes Brother 1 Jose Diabetes Sister 1 Alexandria Relation Name Status Comments Brother 1 Jose Alive Brother 2 Al Alive Prostate cancer Father (Age 36) Brain tumo r Mother (Age 79) Sister 1 Alexandria Alive Sister 2 Brenda (Age 47) Cancer of the Galbladder Social History Tobacco Use Types Packs/Day Years Used Date Smoking Tobacco: Never Alcohol Use Standard Drinks/Week Comments No 0 (1 standard drink = 0.6 oz pur e alcohol) Sex and Gender Information Value Date Recorded Sex Assigned at Not on file Legal 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 Gender Identity Not on file Sexual Orientation Not on file Last Filed Vital Signs Vital Sign Reading Time Taken Comments Blood Pressure 124/86 04/24/2020 12:36 PM PUTTIER Pulse 69 04/24/2020 12:36 PM PUTTIER Temperature 36.8 C (98.2 F) 03/20/2014 12:52 PM PUTTIER Respiratory Rate - - Oxygen Saturation - - Inhaled Oxygen Concentration - - Weight 111.6 kg (246 lb) 04/24/2020 12:36 PM PUTTIER Height 190.5 cm (6' 3 ) 04/24/2020 12:36 PM PUTTIER Body Mass Index 30.75 04/24/2020 12:36 PM PUTTIER Plan of Treatment Health Maintenance Due Date Last Done Comments COLORECTAL SCREENING 1993 Colorectal Cancer Screening 1993 FIT-DNA Q 3 years 1993 FIT/FOBT Q 1 year 1993 Flex Sig/CT Colonography Q 5 years 1993 PNEUMOCOCCAL VACCINE 50+ YEA RS (1 of 1 - PCV) 1998 ZOSTER VACCINE (1 of 2) 1998 DTAP/TDAP/TD VACCINES (2 - Td or Tdap) 07/18/2019 COVID-19 Vaccine ( season) 2023, 03/15/2020 RSV VACCINE (60+ or ) (1 - 1-dose 75+ series) 11/11/2023 INFLUENZA VACCINE (#1) 2024 11/23/2012, 2009 Insurance [id number] [place] [address] MEDICARE PART A AND B Care Teams It Consulting Manager Relationship Specialty Start Date End Date True Bean DO [address] [facility] [address] [place] [address] PCP - General 04/19/20
--- OUTSIDE RECORDS SUMMARY | 2024-09-11 21:06 | XMS_ITS | Encounter Summary ---
Author Organization [facility] Address [address] [place] [address] Care Team Providers Care Package Crimper Name Role Phone True Bean DO Primary Care Provide r Encounter Details Date Type Department Care Team (Latest Contact Info) Description 03/03/2006 Outpatient Historical [facility] Rheumatology- [facility] [place] [address] [place] [id number] Arnel Pittman DO [address] [facility] [address] [place] [address] Rheumatoid Arthritis ([facility]) (Primary Dx); Encounter for Long-Term (Current) Use of Other Medications; Screening Examination for Pulmonary Tuberculosis Social History Tobacco Use Types Packs/Day Years Used Date Smoking Tobacco: Never Assessed Sex and Gender Information Value Date Recorded Sex Assigned at Not on file 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 Gender Identity Not on file Sexual Orientation Not on file documented as of this encounter Plan of Treatment Not on file documented as of this encounter Visit Diagnoses Diagnosis Rheumatoid arthritis(714.0) (CMS/[facility])- Primary Rheumatoid arthritis Encounter for long-term (current) use of other medications Screening examination for pulmonary tuberculosis documented in this encounter Care Teams Package Crimper Relationship Specialty Start Date End Date True Bean DO [address] [place] [address] PCP - General Internal Medicine 03/19/15 documented as of this encounter
--- OUTSIDE RECORDS SUMMARY | 2024-09-11 21:06 | XMS_ITS | Encounter Summary ---
Author Organization [facility] Address [address] [place] [address] Care Team Providers Care Mis Director Name Role Phone True Bean DO Primary Care Provide r Encounter Details Date Type Department Care Team (Late st Contact Info) Description 03/07/2007 Outpatient Historical [facility] Rheumatology- [facility] [place] [address] [place] [id number] Arnel Pittman DO [address] [place] [address] Social History Tobacco Use Types Packs/Day Years Used Date Smoking Tobacco: Never Assessed Sex and Gender Information Value Date Recorded Sex Assigned at Not on file Legal Sex Male 2:53 AM [employer] Gender Identity Not on file Sexual Orientation Not on file documented as of this encounter Plan of Treatment Not on file documented as of this encounter Visit Diagnoses Not on filedocumented in this encounter Care Teams Mis Director Relationship Specialty Start Date End Date True Bean DO [address] [facility] [address] [place] [id number] PCP - General Internal Medicine 03/19/15 documented as of this encounter
--- OUTSIDE RECORDS SUMMARY | 2024-09-11 21:07 | XMS_ITS | Data Portability ---
Author Organization HAILEY Lara [facility] Justo, [facility] Address [address] [address] Care Team Providers Care Adult And Pediatric Neurologist Name Role Phone STALLWORTHSANDRA Castillo Primary Care Provider ELAINE KAUFMAN Referring Provider Assessment Encounter Date Assessment Date Assessment LastModified by Organization Details LastModified Time 07/20/2024 07/20/2024 Patient has been on Doxycycline for 5 doses. He will complete the course of antibiotics and let us know if he is not well following. Will add some montelukast today to see if this will help with his congestion. He had a URI swab a few days ago which was negative. He declines being swabbed again. Not available 07/25/2024 17:32:24 07/26/2024 07/26/2024 continue current fare. /u if signs of infection or if new lesiosn develop. very likely a spider bite. it is healing well. terat it is you would a burn. wound care discussed at length. was on doxycycline wouldwould cover bullous impetigo. the day before this developed he had been out mowing and weed eating [facility] . [email or web address] Not available 07/26/2024 15:05:44 Plan of Treatment Reminders Order Date Submit Date Provider Last Modified By Organization Details Last Modified Time Details Appointments None recorded. Lab pharyngeal pathogens DNA and RNA panel, ANAYA+non-pro be, throat [address] [facility] ([facility]), [address] [place], [address], 10:31:20 PSA, serum or plasma - ordered by [facility]/ will fax yf 2024 [place] [facility], [address] [address], [facility] [address] [place], [address], 07:27:32 Referral None recorded. Procedures None recorded. Surgeries None recorded. Imaging None recorded. Medication Orders mupirocin 2 % topical ointment 2024 [facility], [address]/[facility] [address], [place], [address], 15:06:16 triamcinolo ne acetonide 0.1 % topical cream 2024 025 [facility], [address], [place], [address], 10:14:30 montelukast 10 mg tablet 2024 [id number], [address], [address], 5 05:01:43 doxycycline hyclate 100 mg capsule 2024 [id number], [address], [address], 14:09:06 Patient TargetsNo targets recorded. Patient Instructions Encounter Date Encounter Id Patient Instructions Last Modified By Organization Details Last Modified Time 07/20/2024 [id number] Call or return for questions or concerns. Not available 07/25/2024 17:32:28 Reason for Referral None Reported. Results Created Date Observation Date Name Description Value Unit Range Abnormal Flag Note LastModifiedBy Organization Detail LastModifiedTime 06/20/19 25 06/20/2024 PSA, TOTAL PSA, total 1.01 NG/mL < or = 4.00 normal The total PSA value from this assay syste m is stand ardiz ed again st the WHO stand radha. The test resul t will be appro ximat tana 20% lower when zeferino red to the equim olar- stand ardiz ed total PSA (Freeman man Coult er). Zeferino rison of seria l PSA resul ts shoul d be inter prete d with this fact in mind. This test was perfo rmed using the Gaosouyi chemi lumin escen t metho d. Value s obtai marshal from diffe rent assay metho ds canno t be used inter george eably . PSA level s, regar dless of value , shoul d not be inter prete d as absol klamath evide nce of the prese nce or absen ce of disea se. Not Available [facility] [address] [place], [address], 06/20/2024 07:27:32 07/19/19 25 07/18/2024 phary ngeal patho gens DNA and RNA panel , ANAYA+n on-pr obe, throa t Strep A negati ve Not Available [facility] ([facility]) [address] [place] [address], [phone], 07/18/2024 09:48:20 07/19/19 25 07/18/2024 phary ngeal patho gens DNA and RNA panel , ANAYA+n on-pr obe, throa t Rhinovirus negati ve Not Available [facility] ([facility]) [address] [place] [address], [phone], 07/18/2024 09:48:20 07/19/19 25 07/18/2024 phary ngeal patho gens DNA and RNA panel , ANAYA+n on-pr obe, throa t RSV negati ve Not Available [facility] ([facility]) [address] [place] [address], [phone], 07/18/2024 09:48:20 07/19/19 25 07/18/2024 phary ngeal patho gens DNA and RNA panel , ANAYA+n on-pr obe, throa t Influenza A negati ve Not Available [facility] ([facility]) [address] [place], [address], 07/18/2024 09:48:20 07/19/19 25 07/18/2024 phary ngeal patho gens DNA and RNA panel , ANAYA+n on-pr obe, throa t Influenza B negati ve Not Available [facility] ([facility]) [address] [place], [address], 07/18/2024 09:48:20 06/08/19 25 06/07/2024 polys omnog jarvis (PROC ) No observ ation record ed. [address] [facility] [address] [facility] [address], [address], 06/09/2024 14:21:09 08/22/19 25 08/14/2024 polys omnog thaddeus, titra tion study No observ ation record ed. [address] [facility] [address] [place], [address], 08/23/2024 15:38:58 Result Notes None recorded. Problems Name Problem SNOMED Code Status Onset Date Resolution Date Notes Provider Name and Address Organization Details Recorded Time Rheumatoi d arthritis 28736966 Active 2022 JAREN costello [facility] 5 09:21:22 Hyperlipi demia 44606529 Active 2022 JAREN costello [facility] 5 09:21:31 Pain of bilateral knee joints 635077688308 104 Active 2024 Celsa Lilly [facility] 5 08:39:03 Gastroeso phageal reflux disease 573686034 Active 2024 Celsa Carr [facility] 5 08:39:27 Eczema 99994351 Completed 202405/05/2024 Celsa Carr [facility] 5 08:39:54 Obstructi ve sleep apnea syndrome 11479545 Active 2024 JAREN AMAYA [facility] 11:16:35 Problem Notes None recorded. Procedures Surgical History Date Name Laterality Status Provider Name and Address Organization Details Recorded Time total knee replacement completed [facility] 05/05/2024 09:43:43 lobectomy of lung completed [facility] 05/05/2024 09:45:01 Imaging Results None recorded. Procedure Notes None recorded. Medical Equipment None Reported. Allergies Allergen ID Allergen Name Allergen Category Reaction Reaction Severity Criticality Documentation Date Start Date Code Code System Note Provider Name and Address Organization Details Recorded Time 98053 penicilli n V potassium medicatio n Not available Not available Not available 09/12/2022 5 RxNorm Comme nt: Recor ded 03/02 3:35P M by Mari deng RN, Offic e Visit ; Promo evangelina; Frankie trivedi ce: *; Reaso n: Drug aller gy; ; JAREN AMAYA [facility] 5 09:20:57 49774 Product containin g penicilli n (product) medicatio n hives Not available Not available 05/05/2024 83806 8001 SNOMED JAREN AMAYA [facility] 5 09:20:55 Medications Name Sig Start Date Stop Date Status Note LastModified by Organization Details LastModified Time doxycycli ne hyclate 100 mg capsule TAKE 1 CAPSULE BY MOUTH TWICE A DAY FOR 7 DAYS 07/26 completed Not Available Not Available Not Available prednison e 20 mg tablet TAKE 1 TABLET BY MOUTH DAILY FOR 3-7 DAYS NEEDED FOR JOINT PAIN FLARE AND ARTHRITI S FLARE NEEDED 07/27 completed Not Available Not Available Not Available Tylenol Arthritis Pain 650 mg tablet,ex tended release Take 2 tablets every 8 hours by oral route as needed. active Not Available Not Available No t Available ciproflox acin 500 mg tablet TAKE 1 TABLET BY MOUTH TWICE A DAY FOR 5 DAYS 07/26 completed Not Available Not Available Not Available tramadol 50 mg tablet TAKE 1 TABLET BY MOUTH THREE TIMES A DAY NEEDED FOR SEVERE PAIN 05/05 completed Not Available Not Available Not Available triamcino lone acetonide 0.1 % topical cream APPLY A THIN LAYER TOPICALL Y TO THE AFFECTED AREAS TWICE DAILY active Not Available Not Available No t Available methotrex ate sodium 2.5 mg tablet TAKE 2 TABLETS BY MOUTH EVERY 7 DAYS DIRECTED active Not Available Not Available No t Available tamsulosi n 0.4 mg capsule TAKE 1 CAPSULE BY MOUTH TWICE A DAY active Not Available Not Available No t Available prednison e 2.5 mg tablet TAKE 1 TABLET BY MOUTH EVERY DAY active Not Available Not Available No t Available pantopraz ole 40 mg tablet,de layed release TAKE 1 TABLET BY MOUTH EACH MORNING 30 MINUTES BEFORE MEAL DAILY active Not Available Not Available No t Available docusate sodium 100 mg capsule TAKE 1 CAPSULE BY MOUTH DAILY NEEDED FOR CONSTIPA TION FOR 10 DAYS 05/05 completed Not Available Not Available Not Available monteluka st 10 mg tablet Take 1 tablet every day by oral route for 14 days. 08/10 completed Not Available Not Available Not Available mupirocin 2 % topical ointment APPLY A SMALL AMOUNT OF OINTMENT TOPICALL Y TO AFFECTED AREA THREE TIMES DAILY active Not Available Not Available No t Available hydroxych loroquine 200 mg tablet TAKE 1 TABLET BY MOUTH TWICE A DAY active Not Available Not Available No t Available ondansetr on 4 mg disintegr ating tablet DISSOLVE 1 TABLET ON TONGUE EVERY 8 HOURS NEEDED FOR NAUSEA AND VOMITING FOR 3 DAYS 05/05 completed Not Available Not Available Not Available folic acid 800 mcg tablet Take 1 tablet every day by oral route. active Not Available Not Available No t Available oxycodone 5 mg tablet TAKE 1 TABLET BY MOUTH EVERY 6 HOURS NEEDED FOR PAIN POSTOP FOR 7 DAYS 05/05 completed Not Available Not Available Not Available nitrofura ntoin monohydra te/macroc rystals 100 mg capsule TAKE 1 CAPSULE BY MOUTH EVERY 12 HOURS 05/05 completed Not Available Not Available Not Available Enbrel 50 mg/mL (1 mL) subcutane ous syringe INJECT 50MG SUBCUTAN EOUSLY EVERY 7 DAYS active Not Available Not Available No t Available Flonase daily in each nostril 06/20 completed Recorded 03/02/19 3:36PM by Yvonne Carter RN, Office Visit; Refill Quantity : 0; Not Available Not Available Not Available garlic 1000 mg daily active Not Available Not Available No t Available folic acid daily 05/05 completed 0; Recorded 03/02/19 3:36PM by Yvonne Carter RN, Office Visit; Not Available Not Available Not Available methotrex ate once a week 06/20 completed for arthriti s CS/sd; 42553; Recorded 05/29/19 8:51AM by Carmina Loyola (Authori carl through True Bean DO), Office Visit; Refill Quantity : 0; Not Available Not Available Not Available prednison e daily 05/05 completed 0; Recorded 03/02/19 3:36PM by Yvonne Carter RN, Office Visit; Not Available Not Available Not Available Buffalo-3 1000 mg daily 2018 active Not Available Not Available Not Avai lable Vitamin D3 50 mcg daily active Not Available Not Available No t Available Enbrel weekly 06/20 completed 0; Recorded 03/02/19 3:36PM by Yvonne Carter RN, Office Visit; Not Available Not Available Not Available Eliquis 2.5 mg tablet TAKE 1 TABLET BY MOUTH TWICE A DAY FOR 2 WEEKS 05/05 completed Not Available Not Available Not Available Vitals Date Recorded Body height Body mass index (BMI) Body weight Oxygen saturation Oxygen saturation in Arterial blood by Pulse oximetry Heart rate Body temperature Respiratory rate Systolic And Diastolic Provider Name and Address Organization Details Last Updated DateTime 5 190.5 cm 29.6 kg/m2 807158. 09 g 96 % 96 % 81 /min 98.3 [degF] 18 /min 120/70 mm[Hg] CARMINA LOYOLA [facility] 5 09:38:51 Date Recorded Body height Body mass index (BMI) Body weight Oxygen saturation Oxygen saturation in Arterial blood by Pulse oximetry Heart rate Respiratory rate Body temperature Systolic And Diastolic Provider Name and Address Organization Details Last Updated DateTime 5 190.5 cm 29.6 kg/m2 996148. 39 g 96 % 96 % 88 /min 16 /min 99.6 [degF] 128/66 mm[Hg] Woods Holevinny Roger [facility] 5 18:47:49 Date Recorded Body height Body mass index (BMI) Body weight Body temperature Respiratory rate Heart rate Oxygen saturation Oxygen saturation in Arterial blood by Pulse oximetry Systolic And Diastolic Provider Name and Address Organization Details Last Updated DateTime 5 190.5 cm 29.7 kg/m2 759541. 98 g 98.1 [degF] 17 /min 80 /min 95 % 95 % 130/68 mm[Hg] Peggy Mckay [facility] 5 09:47:05 Date Recorded Body height Body mass index (BMI) Body weight Body temperature Heart rate Oxygen saturation Oxygen saturation in Arterial blood by Pulse oximetry Systolic And Diastolic Provider Name and Address Organization Details Last Updated DateTime 5 190.5 cm 29.2 kg/m2 584163. 61 g 97.8 [degF] 71 /min 98 % 98 % 120/62 mm[Hg] JAREN AMAYA [facility] 5 14:07:46 Social History Question Answer Notes LastModified by Organizat ion Details LastModified Time Tobacco Smoking Status Never Smoker NEETA ocstello [facility] 07/27/2022 14:05:05 Are You Blind Or Do You Have Difficulty Seeing? No [email or web address] Information not available 07/27/2022 Are You Deaf Or Do You Have Serious Difficulty Hearing? No [email or web address] Information not available 07/27/2022 Have You Had Direct Contact, Or Contact During Intimacy, With Monkeypox Rash, Scabs, Or Body Fluids From A Person With Monkeypox? No [email or web address] Information not available 07/27/2022 What Was The Date Of Your Most Recent Tobacco Screening? 07/20/2024 [email or web address] Information not available 07/20/2024 Have You Recently Traveled Abroad? No [email or web address] Information not available 07/27/2022 Do You Have Difficulty Walking Or Climbing Stairs? No [email or web address] Information not available 07/27/2022 Sex: Unknown Functional Status Question Answer Note LastModified by Organizat ion Details LastModified Time Do you use any illicit or recreational drugs? No [email or web address] Information not available 05/05/2024 Do you or have you ever used any other forms of tobacco or nicotine? No [email or web address] Information not available 05/05/2024 What is your level of alcohol consumption? None [email or web address] Information not available 05/05/2024 Are you able to walk? YESWOREST [email or web address] Information not available 07/27/2022 Do you have difficulty doing errands alone? No [email or web address] Information not available 07/27/2022 Are you able to care for yourself independently? Yes [email or web address] Information not available 07/27/2022 Do you have difficulty dressing, bathing, grooming, or toileting? No [email or web address] Information not available 07/27/2022 Do you or have you ever used any nicotine-free cigarettes, vape, or chewing tobacco? No [email or web address] Information not available 05/05/2024 Mental Status Question Answer Note LastModified by Organization D etails LastModified Time Do you have difficulty concentrating, remembering or making decisions? No [email or web address] Information no t available 07/27/2022 Family History Relationship Description Onset Age of this Age Resolved Age Notes LastModified by Organization Details LastModified Time Brother Malignant neoplasm of prostate [email or web address] Not available 2024 08:22:49 Brother Diabetes mellitus [email or web address] Not available 03/21 /2025 09:42:49 Father Neoplasm of brain [email or web address] Not available 2024 08:23:10 Sister Malignant tumor of gallbladder Not available 09:42:29 Sister Diabetes mellitus [email or web address] Not available 05/05 09:42:49 Medical History No medical history recorded. Immunizations Vaccine Type Date Status Note Provider Nam e and Address Organization Details Recorded Time COVID-19, mRNA, LNP-S, PF, 30 mcg/0.3 mL dose 1 completed JAREN costello, [facility] 05/05/2024 09:20:36 COVID-19, mRNA, LNP-S, PF, 30 mcg/0.3 mL dose 1 completed JAREN costello [facility] 05/05/2024 09:20:36 COVID-19, mRNA, LNP-S, PF, 30 mcg/0.3 mL dose 2 completed JAREN costello, [facility] 05/05/2024 09:20:36 COVID-19, mRNA, LNP-S, PF, 30 mcg/0.3 mL dose 1 completed JAREN costello, [facility] 05/05/2024 09:20:36 COVID-19, mRNA, LNP-S, bivalent, PF, 30 mcg/0.3 mL dose 2 completed JAREN costello [facility] 05/05/2024 09:20:36 Tdap 2 completed JAREN costello [facility] 05/05/2024 09:20:36 Tdap 0 completed JAREN costello [facility] 05/05/2024 09:20:36 Influenza, high-dose, trivalent, PF 9 completed JAREN costello [facility] 05/05/2024 09:20:36 Influenza, split virus, trivalent, preservative 2 completed JARENCYNTHIA AMAYA null, [facility] 05/05/2024 09:20:36 Influenza, split virus, trivalent, preservative 1 completed JAREN AMAYA null, [facility] 05/05/2024 09:20:36 zoster recombinant 4 completed JAREN AMAYA null, [facility] 05/05/2024 09:36:09 zoster recombinant 4 completed JAREN costello, [facility] 05/05/2024 09:36:09 COVID-19, mRNA, LNP-S, PF, liang-sucrose, 30 mcg/0.3 mL 4 completed JAREN costello, [facility] 05/05/2024 09:36:09 Influenza, split virus, trivalent, preservative 3 completed JAREN costello, [facility] 05/05/2024 09:36:09 Influenza, adjuvanted, trivalent, PF 4 completed Not Available [facility] 07/26/2024 14:02:35 COVID-19, mRNA, LNP-S, PF, 50 mcg/0.5 mL 4 completed Not Available [facility] 07/26/2024 14:02:35 Pneumococcal Conjugate, unspecified formulation 3 completed Not Available [facility] 09/12/2022 02:18:55 Td(adult) unspecified formulation 3 completed Not Available [facility] 09/12/2022 02:18:55 Past Encounters Encounter ID Performer Location Encounter Start Date Encounter Closed Date Diagnosis/Indication Diagnosis SNOMED-CT Code Diagnosis ICD10 Code Diagnosis Note [id number] True Bean DO [facility] ([facility]) [address] [place], [place] [phone] 07/27/2022 13:50:54 07/27/2022 20:27:49 Tremor 59548842 R25.1 Hyperglycemia 93223989 R 73.9 [id number] True Bean DO [facility] ([facility]) [address] [place], [place] [address] 03/18/2023 08:51:37 03/19/2023 12:51:21 Long-term current use of drug therapy 088729098 Z79.978 [id number] True Bean DO [facility] ([facility]) [address] [place], [place] [address] 06/21/2023 15:18:54 06/21/2023 17:04:56 Rheumatoid arthritis 34186968 M05.79 Hyperlipidemia 54526638 E78.5 Lower urin norma tract symptoms due to benign prostatic hypertrophy 5378033665 9101 N40.1 [id number] True Bean DO [facility] ([facility]) [address] [place], [place] [address] 11/08/2023 14:59:59 11/09/2023 11:05:50 Rheumatoid arthritis 96199916 M05.79 Long-term drug therapy 791447092 Z79.687 [id number] True Bean DO [facility] ([facility]) [address] [place], [place] [address] 01/17/2024 14:32:56 01/18/2024 13:25:08 Rheumatoid arthritis 49183852 M05.79 Long-term drug therapy 533342673 Z79.675 [id number] Carl Frances MD [facility] ([facility]) [address] [place], [place] [address] 03/23/2024 10:40:50 03/23/2024 13:17:48 Dysuria 72225989 R30.0 UA was obtained and it demonstrat ed small mount of blood. Will treat for infection. Acute urin norma tract infection 845164080 N39.0 [id number] Sandra Stallworth MD [facility] ([facility]) [address] [place], [place] [id number] 05/05/2024 09:16:13 05/05/2024 13:17:48 Rheumatoid arthritis 23212666 M05.79 Hyperlipidemia 24879842 E78.5 Mass of ur inary bladder 812905020 N32.89 pathology unavailabl e on current EHR from previous bx. will request. Isolated thrombocytopenia 795521258 D69.6 d/w the pt found on last rheum blood test. has blood tests scheduled in two weeks or so. will add futher eval for that. Lower urin norma tract symptoms due to benign prostatic hypertrophy 7105031209 9101 N40.1 likely needs cystoscopy and urodynamic . i agree with his request to see urology. Excessive daytime sleepiness - normal night sleep 189786768 G47.[address] his reports he feels very sleepy during the day even if he gets a good night's rest.his witnesses apnea frequently in the patient and he snores loudly [id number] Sandra Stallworth MD [facility] ([facility]) [address] [place] [id number] 05/16/2024 09:08:22 05/17/2024 12:43:20 Long-term drug therapy 406443267 Z79.744 [id number] Sandra Stallworth MD [facility] ([facility]) [address] [place] [phone] 06/19/2024 15:05:44 06/20/2024 13:27:27 Prostate specific antigen measurement 75182962 Z12.5 [id number] JOSE ROBLES WARE CARRIER [facility] ([facility]) [address] [place] [phone] 07/18/2024 09:29:18 07/19/2024 13:32:12 Pain in throat 218424169 J02.9 Strep panel negative for infection. Acute cough 7452407590 70915211 R05.1 Suspect viral cause but with recent procedure on bladder will start on doxy.May use otc meds for symptom management . F/u if symptoms worsen. [id number] MYLENE CHRISTIE [facility] ([facility]) [address] [place] [phone] 07/20/2024 18:41:54 07/26/2024 09:26:17 Nasal congestion 02285734 R09.81 [id number] MYLENE MARTINEZ [facility] ([facility]) [address] [place] [phone] 07/23/2024 09:39:25 07/23/2024 18:36:39 Finding of finger 267204704 L98.9 Continue doxycyclin e. Keep site clean and dry. Do no soak in water. Wash with antibacter ial soap and running water. Pat dry and apply cream as prescribed . Follow up with Dr Stallworth or return to walk in if no improvemen t in 3 days. [id number] Sandra Stallworth MD [facility] ([facility]) [address] [place] [phone] 07/26/2024 14:02:16 07/26/2024 15:12:30 Blister 162229919 R23.8 Health Concerns Section Related Observation LastModified by Organization Detai ls LastModified Time None Recorded Concern Status LastModified by Organization Details LastModified Time None Recorded Advance Directives Directive None Recorded Payers Insurance Date Sequence Insurance Name Policy Number Policy Robledo Covered Member ID Robledo Member ID Guarantor Name 07/18/2024 [place] - [facility] (MEDICARE) Jhonatan R Tune [id number] Jhonatan Deng Tune 07/24/2024 2 [employer] - MEDICARE SELECT - PLAN F (MEDICARE SUPPLEMENT) Jhonatan Deng Tune [id number] Jhonatan Deng Tune 03/23/2024 2 [employer] (MEDICARE SUPPLEMENT) Jhonatan R Tune [id number] Jhonatan Deng Tune 07/18/2024 1 [place] Jhonatan R Tune [id number] Jhonatan R Tune
--- OUTSIDE RECORDS SUMMARY | 2024-09-11 21:07 | XMS_ITS | Encounter Summary ---
Author Organization [facility] Address [address] [place] [address] Care Team Providers Care Medical Engineer Name Role Phone True Bean DO Primary Care Provide r Encounter Details Date Type Department Care Team (Late st Contact Info) Description 09/04/2003 Outpatient Historical [facility] Rheumatology- [facility] [place] [address] [place] [address] Arnel Pittman DO [address] [facility] [address] [place] [address] RHEUMATOID ARTHRITIS (CMS/[facility]) (Primary Dx) Social History Tobacco Use Types Packs/Day Years Used Date Smoking Tobacco: Never Assessed Sex and Gender Information Value Date Recorded Sex Assigned at Not on file 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
--- OUTSIDE RECORDS SUMMARY | 2024-09-11 21:07 | XMS_ITS | Clinical Summary ---
Author Organization [facility] (Formerly [facility])[3] Mike [place]on [place] Address [address] [place] [address] Phone Care Team Providers Care Chief Ultrasound Technologist Name Role Phone BeanTrueiel Primary Care Provide r Allergies Active Allergy Reactions Criticality Noted Date Comments Amoxicillin Hives High 03/09/2008 Cephalexin Rash,Itching High 06/16/2010 Medications TYLENOL ARTHRITIS PO Take by mouth. Ac tive [place]-3 Fatty Acids-Vitamin E (OMEGA-3 FISH OIL) 1,000-5 mg-unit Oral Cap Take 3 Tabs by mouth daily. Active Garlic Oral Cap Take 1 Cap by mouth daily. Active triamcinolone acetonide (KENALOG) 0.1 % Topical Crea Apply to affected area. As needed for exema Active folic acid (FOLVITE) 0.8 mg TabletIndicatio ns:Encounter for long-term (current) use of other medications Take 4 Tabs by mouth daily. over the counter (OTC) vitamin supplement to reduce potential for methotrexate related side effects. 120 Tab 11 4 Active etanercept (ENBREL SURECLICK) 50 mg/mL (0.98 mL) Pen InjectorIndicat ions:Rheumatoid arthritis(714.0 ) ([facility]) Inject 1 mL by subcutaneous injection every 7 days. 4 mL 11 4 Active ranitidine (ZANTAC) 150 mg tablet Take 150 mg by mouth 2 times daily. Active atorvastatin (LIPITOR) 20 mg tablet Take 20 mg by mouth Daily LATE. Active glucosamine-cho ndroitin (ARTHX DS) 500-400 mg Capsule Take 1 Capsule by mouth. Active methotrexate (RHEUMATREX) 2.5 mg Tablet TAKE 4 TABLETS BY MOUTH ONCE A WEEK 16 Tablet 2 1 Active predniSONE (DELTASONE) 2.5 mg tablet TAKE 1 TABLET BY MOUTH ONCE DAILY WITH BREAKFAST FOR RHEUMATOID ARTHRITIS 30 Tablet 5 1 Active Active Problems Problem Noted Date Diagnosed Date Rheumatoid Arthritis MTX/Enbrel/prednisone 03/09 Overview (03/09/2008): Well controlled on current treatment plan and have encouraged to try to reduce prednisone possibly to 5 mg 1/2 tablet daily if tolerated. Long-Term (Current) Use of MTX/Enbrel 03/09/2008 Overview (03/09/2008): No evidence of developing side effects and will continue to closely monitor lab as ordered every 4 weeks. Resolved Problems Problem Noted Date Diagnosed Date Resolved Date Leukopenia WBC reduced to 3,600 (06/10/2012) 06/20/2012 06/27/2013 Overview (06/20/2012): Will have methotrexate held 1 week and [...] YR UP) TDAP VACCINE, 0.5ML, IM 07/17/2009 (PFIZER)(12 YR UP) COVID-19 VACCINE - EMERGENCY USE AUTHORIZATION, MRNA, [id number](PF) 30 MCG/0.3 ML IM SUSP 04/12/2020,03/15/2020 Influenza Seasonal Unspecified Formulation IM ,10/30/2009 Skin Test TB 03/09/2008,03/07/2007 Family History Medical History Relation Name Comments Diabetes Brother 2 Jose Diabetes Sister 2 Alexandria Relation Name Status Comments Brother 1 Al Alive Prostate cancer Brother 2 Jose Alive Father (Age 36) Brain tumo r Mother (Age 79) Sister 1 Brenda (Age 47) Cancer of the Galbladder Sister 2 Alexandria Alive Social History Tobacco Use Types Packs/Day Years Used Date Smoking Tobacco: Never Alcohol Use Standard Drinks/Week Comments No 0 (1 standard drink = 0.6 oz pur e alcohol) Sex and Gender Information Value Date Recorded Sex Assigned at Not on file Legal Sex Male 2:53 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 Gender Identity Not on file Sexual Orientation Not on file Last Filed Vital Signs Vital Sign Reading Time Taken Comments Blood Pressure 124/86 04/24/2020 12:36 PM SENSORY SCIENTIST Pulse 69 04/24/2020 12:36 PM SENSORY SCIENTIST Temperature 36.8 C (98.2 F) 03/20/2014 12:52 PM SENSORY SCIENTIST Respiratory Rate - - Oxygen Saturation 96% 04/24/2020 12:36 PM SENSORY SCIENTIST Inhaled Oxygen Concentration - - Weight 111.6 kg (246 lb) 04/24/2020 12:36 PM SENSORY SCIENTIST Height 190.5 cm (6' 3 ) 04/24/2020 12:36 PM SENSORY SCIENTIST Body Mass Index 30.75 04/24/2020 12:36 PM SENSORY SCIENTIST Plan of Treatment Health Maintenance Due Date Last Done Comments COLORECTAL SCREENING 1993 Colorectal Cancer Screening 1993 FIT-DNA Q 3 years 1993 FIT/FOBT Q 1 year 1993 Flex Sig/CT Colonography Q 5 years 1993 PNEUMOCOCCAL VACCINE 50+ YEA RS (1 of 1 - PCV) 1998 ZOSTER VACCINE (1 of 2) 1998 DTAP/TDAP/TD VACCINES (2 - Td or Tdap) 07/18/2019 COVID-19 Vaccine (3 - 2023- season) 2023, 03/15/2020 RSV VACCINE (60+ or ) (1 - 1-dose 75+ series) 11/11/2023 INFLUENZA VACCINE (#1) 2024 11/23/2012, [id number] [place] [address] MEDICARE PART A AND B [facility] Care Teams Chief Ultrasound Technologist Relationship Specialty Start Date End Date True Bean DO [address] [facility] [address] [place] [address] PCP - General Internal Medicine 03/19/15
--- OUTSIDE RECORDS SUMMARY | 2024-09-11 21:07 | XMS_ITS | Encounter Summary ---
Author Organization [facility] Address [address] [place] [address] Care Team Providers Care Director Of District Office Name Role Phone True Bean DO Primary Care Provide r Encounter Details Date Type Department Care Team (Late st Contact Info) Description 01/17/[address] 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
--- OUTSIDE RECORDS SUMMARY | 2024-09-11 21:07 | XMS_ITS | Encounter Summary ---
Author Organization [facility] Address [address] [place] [address] Care Team Providers Care Coffee Sampler Name Role Phone True Bean DO Primary Care Provide r Encounter Details Date Type Department Care Team (Late st Contact Info) Description 10/25/2003 Outpatient Historical [facility] Rheumatology- [facility] [address] [place] [address] Arnel Pittman DO [address] [facility] [address] [place] [address] RHEUMATOID ARTHRITIS (CMS/[facility]) (Primary Dx); AFTERCARE PRISON USE MEDICATN Social History Tobacco Use Types Packs/Day Years Used Date Smoking Tobacco: Never Assessed Sex and Gender Information Value Date Recorded Sex Assigned at Not on file Legal 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
--- OUTSIDE RECORDS SUMMARY | 2024-09-11 21:07 | XMS_ITS | Encounter Summary ---
Author Organization [facility] Address [address] [place] [address] Care Team Providers Care Supervisor Paper Testing Name Role Phone True Bean DO Primary Care Provide r Encounter Details Date Type Department Care Team (Late st Contact Info) Description 08/14/2004 Outpatient Historical [facility] Rheumatology- [facility] [place] [address] [place] [address] Arnel Pittman DO [address] [facility] [address] [place] [address] RHEUMATOID ARTHRITIS (CMS/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
--- OUTSIDE RECORDS SUMMARY | 2024-09-11 21:07 | XMS_ITS | Encounter Summary ---
Author Organization [facility] Address [address] [place] [address] Care Team Providers Care Wood Treating Inspector Name Role Phone True Bean DO Primary Care Provide r Encounter Details Date Type Department Care Team (Late st Contact Info) Description 12/20/2003 Outpatient Historical [facility]-[place] [address] [place] [address] Arnel Pittman DO [address] [facility] [address] [place] [address] INFLAMM POLYARTHROP NOS (CMS/HCC) (Primary Dx) Social History Tobacco Use Types Packs/Day Years Used Date Smoking Tobacco: Never Assessed Sex and Gender Information Value Date Recorded Sex Assigned at Not on file Legal Sex Male 2:53 AM 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
--- OUTSIDE RECORDS SUMMARY | 2024-09-11 21:07 | XMS_ITS | Encounter Summary ---
Author Organization [facility] Address [address] [place] [address] Care Team Providers Care Nuclear Supervising Operator Name Role Phone True Bean DO Primary Care Provide r Encounter Details Date Type Department Care Team (Late st Contact Info) Description 05/22/2004 Outpatient Historical [facility] Imaging Services-[place] [address] [place] [address] Arnel Pittman DO [address] [facility] [address] [place] [address] EMPHYSEMA NEC (CMS/HCC) (Primary Dx) Social History Tobacco Use Types Packs/Day Years Used Date Smoking Tobacco: Never Assessed Sex and Gender Information Value Date Recorded Sex Assigned at Not on file Legal Sex Male 2:53 AM CORE ANALYST Gender Identity Not on file Sexual Orientation Not on file documented as of this encounter Plan of Treatment Not on file documented as of this encounter Visit Diagnoses Diagnosis Other emphysema (CMS/HCC)- Primary Other emphysema documented in this encounter Care Teams Nuclear Supervising Operator Relationship Specialty Start Date End Date True Bean DO [address] [place] [address] PCP - General Internal Medicine 03/19/15 documented as of this encounter
--- OUTSIDE RECORDS SUMMARY | 2024-09-11 21:07 | XMS_ITS | Encounter Summary ---
Author Organization [facility] Address [address] [place] [address] Care Team Providers Care Building Construction Foreman Name Role Phone True Bean DO Primary Care Provide r Encounter Details Date Type Department Care Team (Late st Contact Info) Description 05/22/2004 Outpatient Historical [facility] Rheumatology- [facility] [address] [place] [address] Arnel Pittman DO [address] [facility] [address] [place] [address] RHEUMATOID ARTHRITIS (CMS/[facility]) (Primary Dx); JOINT PAIN-MULT JTS; SYNOVITIS NOS; AFTERCARE SKILLED NURSING USE MEDICATN Social History Tobacco Use Types Packs/Day Years Used Date Smoking Tobacco: Never Assessed Sex and Gender Information Value Date Recorded Sex Assigned at Not on file Legal Sex Male 2:53 AM RESIDENT CARE 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 Gender Identity Not on file Sexual Orientation Not on file documented as of this encounter Plan of Treatment Not on file documented as of this encounter Visit Diagnoses Diagnosis Rheumatoid arthritis(714.0) (CMS/HCC)- Primary Rheumatoid arthritis Pain in joint, multiple sites Synovitis and tenosynovitis, unspecified Encounter for long-term (current) use of other medications documented in this encounter Care Teams Building Construction Foreman Relationship Specialty Start Date End Date True Bean DO [address] [facility] [address] [place] [address] PCP - General Internal Medicine 03/19/15 documented as of this encounter
--- OUTSIDE RECORDS SUMMARY | 2024-09-11 21:07 | XMS_ITS | Encounter Summary ---
Author Organization [facility] Address [address] [place] [address] Care Team Providers Care Green Chain Off Bearer Name Role Phone True Bean DO Primary Care Provide r Encounter Details Date Type Department Care Team (Late st Contact Info) Description 12/20/2003 Outpatient Historical [facility] Rheumatology- [facility] [place] [address] [place] [address] Arnel Pittman DO [address] 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 Gender Identity Not on file Sexual Orientation Not on file documented as of this encounter Plan of Treatment Not on file documented as of this encounter Visit Diagnoses Diagnosis Rheumatoid arthritis(714.0) ([facility])- Primary Rheumatoid arthritis Pain in joint, multiple sites Effusion of hand joint Encounter for long-term (current) use of other medications documented in this encounter Care Teams Green Chain Off Bearer Relationship Specialty Start Date End Date True Bean DO [address] [facility] [address] [place] [address] PCP - General Internal Medicine 03/19/15 documented as of this encounter
[2024-09-11 21:14] VITALS: BP 125/68; O2SAT 96
--- NOTE | 2024-09-11 21:16 | CTR_ITS ---
PROCEDURE INFORMATION: Exam: CT Abdomen And Pelvis With Contrast Exam date and time: 09/11/2024 10:54 PM Age: 73 years old Clinical indication: Abdominal pain; Periumbilical TECHNIQUE: Imaging protocol: Computed tomography of the abdomen and pelvis with contrast. Radiation optimization: All CT scans at this facility use at least one of these dose optimization techniques: automated exposure control; mA and/or kV adjustment per patient size (includes targeted exams where dose is matched to clinical indication); or iterative reconstruction. Contrast material: OMNI 350; Contrast volume: 100 ml; Contrast route: INTRAVENOUS (IV); COMPARISON: CT abdomen pelvis w con* [id number] 02/28/2018 3:08 PM RADIATION DOSE METRICS: Total DLP (mGy-cm): 1078.1 FINDINGS: Lungs: Subsegmental atelectasis/scarring the lower lobes and lingular region. Liver: Normal. No mass. Gallbladder and biliary ducts: Cholelithiasis without evidence of cholecystistis. Pancreas: Is ill-defined stranding at the inferior aspect of the head. Spleen: Punctate splenic calcifications, likely sequela prior granulomatous infection. Adrenal glands: Normal. No mass. Kidneys and ureters: There is a 1.3 cm hypoattenuating lesion in the right kidney, likely a simple renal cyst. No hydronephrosis. Stomach and bowel: Unremarkable. No obstruction. No mucosal thickening. Colonic diverticulosis without CT findings of acute diverticulitis. Appendix: No evidence of appendicitis. Intraperitoneal space: Unremarkable. No free air. No significant fluid collection. Vasculature: Unremarkable. No abdominal aortic aneurysm. Lymph nodes: Unremarkable. No enlarged lymph nodes. Urinary bladder: Multiple bladder diverticula thickened and enhancing cee are present along the anterior aspect of the bladder wall, increased in size compared to 2019. The largest of these now measures 3.9 cm. Reproductive: Unremarkable as visualized. Bones/joints: Unremarkable. No acute fracture. Soft tissues: Unremarkable. CT/CT abdomen pelvis w con* [id number] IMPRESSION: Ill-defined stranding at the inferior aspect of the pancreatic head, likely pancreatitis. Recommend correlation with clinical history and lipase levels. Multiple diverticula are present in the anterior aspect of the bladder wall, increased in size compared to 2019. Recommend further evaluation with cystoscopy to exclude underlying malignancy. COMMENTS: Consistent with the [employer]'s Incidental Findings Committee white paper (J Am Ada Radiol 2018): Any incidental renal lesion less than 1 cm or classified as too small to characterize, or any incidental cystic renal lesion characterized as simple-appearing, is likely benign. No follow-up imaging is recommended for these lesions per consensus recommendations based on imaging criteria.
--- NOTE | 2024-09-11 21:21 | W.ED.ABDPA2 ---
HPI - Abdominal Pain General: Chief Complaint: Abdominal Pain Stated Complaint: ABD pain, Fever of 101. Time Seen by Provider: 09/11/24 21:11 History of Present Illness: Patient is a 73-year-old gentleman with history of rheumatoid arthritis, presents to the emergency room with left lower quadrant, suprapubic tenderness. This started at 430 this afternoon. Symptoms have been sharp, stabbing, and fairly consistent with pain rated 8/10. Patient has nausea, general block. He attempted to lay down at 7 PM, however asked his to bring him to the emergency room due to the pain. He is passing gas. No BM in 2-3 days. He did take a stool softener x 1. He states his pain started in the right lower quadrant, and has migrated suprapubic to left lower quadrant. Denies any emesis. Patient stated he had low back pain on both sides of his back and mid back earlier this a.m. for which he took Tylenol. Associated Symptoms: Reports change in bowel habits and nausea; Denies belching, chills, excessive flatus, fever(s) and vomiting Related Data Home Medications ?Medication ?Instructions ?Recorded ?Confirmed acetaminophen 650 mg 650 mg PO Q8H 03/28/19 06/27/24 tablet,extended release (Tylenol Arthritis Pain) garlic 1,000 mg capsule 1,000 mg PO DAILY 03/28/19 06/27/24 omega-3 fatty acids 1,000 mg 1,000 mg PO DAILY 03/28/19 06/27/24 capsule (Fish Oil Concentrate) triamcinolone acetonide 0.1 % 1 applic topical DAILY PRN Dry Skin 12/04/20 06/27/24 topical cream cholecalciferol (vitamin D3) 10 10 mcg PO DAILY 03/17/21 06/27/24 mcg (400 unit) capsule aspirin 81 mg tablet,delayed 81 mg PO DAILY 11/27/22 06/27/24 release folic acid 800 mcg tablet 3,200 mcg PO DAILY 12/14/22 06/27/24 prednisone 20 mg tablet 20 mg PO DAILY PRN joint pain flare 12/25/22 06/27/24 tamsulosin 0.4 mg capsule 0.4 mg PO DAILY 12/25/22 06/27/24 Previous Rx's ?Medication ?Instructions ?Recorded etanercept 50 mg/mL (1 mL) 50 mg SUBCUT Q7D #12 mL 06/27/24 subcutaneous pen injector (Enbrel SureClick) hydroxychloroquine 200 mg tablet 400 mg (2 x 200 mg) PO DAILY #180 06/27/24 tabs methotrexate sodium 2.5 mg tablet 5 mg (2 x 2.5 mg) PO DIRECTED 06/27/24 #30 tabs pantoprazole 40 mg tablet,delayed 40 mg PO DAILY #90 tabs 06/27/24 release prednisone 2.5 mg tablet 2.5 mg PO DAILY #90 tabs 06/27/24 cefdinir 300 mg capsule 300 mg PO BID 10 days #20 caps 09/11/24 ondansetron 4 mg disintegrating 4 mg PO Q8H PRN nausea and 09/11/24 tablet vomiting 4 days #14 tabs Allergies Allergy/AdvReac Type Severity Reaction Status Date / Time amoxicillin Allergy Unknown Rash,Unknow Verified 09/11/24 21:06 n Review of Systems General: Reports: 10 or more systems reviewed and unremarkable except in HPI and below Const: Denies: fever(s) or chills Eyes: Denies: change in vision or blurry vision ENMT: Denies: throat pain or mouth pain Card: Denies: chest pain or palpitations Resp: Denies: dyspnea or non-productive cough GI: Reports: abdominal pain, nausea and change in bowel habits; Denies: vomiting, dysphagia, early satiety, belching or excessive flatus : Denies: flank pain Musc: Reports: back pain (now resolved); Denies: neck pain Skin/Breast: Denies: rash or pruritus Neuro: Denies: headache(s), numbness in extremities or weakness in extremities Psych: Denies: anxiety or depression Endo: Denies: polyuria or polydipsia Srikanth/Lymph: Denies: easy bruising or easy bleeding PFSH ED PFSH: Medical History (Updated 09/11/24 @ 23:59 by KENDALL Dockery) GERD (gastroesophageal reflux disease) 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 Father , AT AGE 36-BRAIN TUMOR No problems noted. Other Cancer Diabetes Hypertension Lung disease Suicide Denies family history of Rheumatoid arthritis Lupus CAD (coronary artery disease) Chronic kidney disease (CKD) Stroke Social History Smoking and tobacco/nicotine status: never used tobacco/nicotine Alcohol intake: never Substance/Drug Use: never Adopted: No Lives independently: No Household members: spouse Marital status: Current occupational status: retired Physical Exam Const: COMMON NORMALS: no acute distress, average body habitus and patient oriented x3 HENMT: COMMON NORMALS: normocephalic and atraumatic HEAD & SCALP: normocephalic and atraumatic Neck/C-Spine: COMMON NORMALS: full ROM, no lymphadenopathy and supple Chest: COMMONS NORMALS: normal inspection of the chest and normal palpation of entire chest wall Resp: COMMON NORMALS: normal respiratory effort, No retractions and clear to auscultation bilaterally AUSCULTATION: clear to auscultation bilaterally Cardio: COMMON NORMALS: regular rate and regular rhythm RATE: regular rate RHYTHM: regular rhythm GI: COMMON NORMALS: Normal to inspection, nondistended, normoactive bowel sounds present PALPATION: Yes Tenderness to palpation present (GI) Details: LLQ and other (suprapubic) : COMMON NORMALS: Yes no CVA tenderness BLADDER/KIDNEY EXAM: Yes no CVA tenderness Back/Pelvis: COMMON NORMALS: no CVA tenderness Extremity: COMMON NORMALS: normal to inspection, full ROM and capillary refill normal Neuro: COMMON NORMALS: patient oriented x3 Psych: COMMON NORMALS: mental status grossly normal and Normal thought process present THOUGHT PROCESS: Normal thought process present Skin: COMMON NORMALS: no rashes or lesions noted, no wounds and turgor normal GENERAL SKIN EXAM: no rashes or lesions noted and turgor normal Course Vital Signs: Vital signs: Vital Signs Temperature 98.4 F 09/11/24 20:59 Pulse Rate 92 09/12/24 00:53 Respiratory Rate 17 09/12/24 00:53 Blood Pressure 129/67 09/12/24 00:53 Pulse Oximetry 91 09/12/24 00:53 Oxygen Delivery Me thod Room Air 09/11/24 23:30 MDM - Abdominal Pain Medical Decision Making Patient is a 73-year-old gentleman that has mid left abdominal pain and suprapubic pain. He had low back pain this a.m. His lipase was not elevated. His clinical examination appears to be consistent with the stranding of the inferior aspect of the pancreatic head as noted on CT. Will add on a triglyceride level. Cause is unclear. I would also consider his medications, given he is on methotrexate, etanercept, hydroxychloroquine. In any event, we will place patient on clear liquid diet for 3 days, antiemetic, and treat his pyuria while he culture is pending. Patient states understanding to the above plan. Lab Data 09/11/24 22:18 09/11/24 22:18 Labs/Radiology: Radiology Impressions Abdomen/Pelvis CT 09/11/24 21:16 IMPRESSION: Ill-defined stranding at the inferior aspect of the pancreatic head, likely pancreatitis. Recommend correlation with clinical history and lipase levels. Multiple diverticula are present in the anterior aspect of the bladder wall, increased in size compared to 2019. Recommend further evaluation with cystoscopy to exclude underlying malignancy. COMMENTS: Consistent with the [employer]'s Incidental Findings Committee white paper (J Am Ada Radiol 2018): Any incidental renal lesion less than 1 cm or classified as too small to characterize, or any incidental cystic renal lesion characterized as simple-appearing, is likely benign. No follow-up imaging is recommended for these lesions per consensus recommendations based on imaging criteria. Laboratory Results WBC 10.61 10^3/uL (3.29-11.43) 09/11/24 22:18 RBC 3.88 10^6/uL (3.85-5.65) 09/11/24 22:18 Hgb 12.50 g/dL (11.27-16.99) 09/11/24 22:18 Hct 38.2 % (37-53) 09/11/24 22:18 MCV 98.5 fl (82-101) 09/11/24 22:18 MCH 32.2 pg (27-33) 09/11/24 22:18 MCHC 32.7 g/dL (30-55) 09/11/24 22:18 RDW 13.6 % (12.1-15.1) 09/11/24 22:18 Plt Count 151 10^3/cmm (157-399) L 09/11/24 22:18 MPV 9.5 fL (7.4-10.4) 09/11/24 22:18 Neut % (Auto) 77.3 % 09/11/24 22:18 Lymph % (Auto) 8.1 % 09/11/24 22:18 [place] % (Auto) 13.3 % 09/11/24 22:18 Eos % (Auto) 0.7 % 09/11/24 22:18 Baso % (Auto) 0.3 % 09/11/24 22:18 Neut # (Auto) 8.21 10^3/uL (1.8-7.7) H 09/11/24 22:18 Lymph # (Auto) 0.9 10^3/uL (0.8-4.8) 09/11/24 22:18 [place] # (Auto) 1.4 10^3/uL (0.2-0.9) H 09/11/24 22:18 Eos # (Auto) 0.1 10^3/uL (0.0-0.8) 09/11/24 22:18 Baso # (Auto) 0.0 10^3/uL (0.0-0.1) 09/11/24 22:18 Nucleated RBC % (auto) 0 % 09/11/24 22:18 Nucleated RBCs # 0.0 /100WBC 09/11/24 22:18 Sodium 137 mmol/L (136-145) 09/11/24 22:18 Potassium 4.1 mmol/L (3.5-5.1) 09/11/24 22:18 Chloride 102 mmol/L (98-107) 09/11/24 22:18 Carbon Dioxide 23 mmol/L (22-29) 09/11/24 22:18 Anion Gap 16.1 (5-19) 09/11/24 22:18 BUN 17 mg/dL (8-23) 09/11/24 22:18 Creatinine 0.9 mg/dL (0.7-1.2) 09/11/24 22:18 GFR Calculation Not Reportable 09/11/24 22:18 Glucose 123 mg/dL (65-115) H 09/11/24 22:18 Calculated Osmolality 287 mOsm/kg (285-295) 09/11/24 22:18 Lactic Acid 0.8 mmol/L (0.5-2.2) 09/11/24 22:18 Calcium 8.6 mg/dL (8.5-10.5) 09/11/24 22:18 Total Bilirubin 0.9 mg/dL (0.15-1.2) 09/11/24 22:18 AST 19 U/L (0-40) 09/11/24 22:18 ALT 13 U/L (0-41) 09/11/24 22:18 Alkaline Phosphatase 86 U/L (40-130) 09/11/24 22:18 Total Protein 6.5 g/dL (6.6-8.7) L 09/11/24 22:18 Albumin 3.5 g/dL (3.5-5.2) 09/11/24 22:18 Globulin 3.0 g/dL (1.3-4.6) 09/11/24 22:18 Triglycerides 53 mg/dL (0-150) 09/11/24 22:18 Lipase 44 U/L (13-60) 09/11/24 22:18 Urine Color Yellow (Yellow) 09/11/24 21:37 Urine Appearance Clear (CLEAR) 09/11/24 21:37 Urine pH 6.5 (5-7) 09/11/24 21:37 Ur Specific [place] 1.020 (1.005-1.030) 09/11/24 21:37 Urine Protein Trace (Negative) A 09/11/24 21:37 Urine Glucose (UA) Negative (Normal) 09/11/24 21:37 Urine Ketones Trace (Negative) 09/11/24 21:37 Urine Blood 1+ (Negative) A 09/11/24 21:37 Urine Nitrate Negative (Negative) 09/11/24 21:37 Urine Bilirubin Negative (Negative) 09/11/24 21: Urine Urobilinogen 1.0 mg/dL (Negative) 09/11/24 21:37 Ur Leukocyte Esterase 1+ (Negative) A 09/11/24 21:37 Urine RBC 21-50 /hpf (0-2) H 09/11/24 21:37 Urine WBC 11-20 /hpf (0-5) H 09/11/24 21:37 Ur Squamous Epith Cells 0-5 /hpf (0-5) 09/11/24 21:37 Amorphous Sediment Not Reportable 09/11/24 21:37 Urine Bacteria None seen /hpf (NONE) 09/11/24 21:37 Hyaline Casts 2.46 /lpf 09/11/24 21:37 All radiology interpretation(s) finalized by discharge Discharge Plan Discharge Patient Disposition: Home Clinical Impression: Pyuria Acute inflammation of the pancreas Qualifiers: Pancreatitis type: idiopathic Acute pancreatitis complication: no infection or necrosis Qualified Code(s): K85.00 - Idiopathic acute pancreatitis without necrosis or infection Condition: Stable Prescriptions: New ondansetron 4 mg tablet,disintegrating 4 mg PO Q8H PRN (Reason: nausea and vomiting) 4 Days Qty: 14 0RF cefdinir 300 mg capsule 300 mg PO BID 10 Days Qty: 20 0RF No Action cholecalciferol (vitamin D3) 10 mcg (400 unit) capsule 10 mcg PO DAILY omega-3 fatty acids [Fish Oil Concentrate] 1,000 mg capsule 1,000 mg PO DAILY garlic 1,000 mg capsule 1,000 mg PO DAILY acetaminophen [Tylenol Arthritis Pain] 650 mg tablet extended release 650 mg PO Q8H triamcinolone acetonide 0.1 % cream 1 applic topical DAILY PRN (Reason: Dry Skin) folic acid 800 mcg tablet 3,200 mcg PO DAILY aspirin 81 mg tablet,delayed release (DR/EC) 81 mg PO DAILY Enbrel SureClick 50 mg/mL (1 mL) pen injector 50 mg SUBCUT Q7D Qty: 12 1RF hydroxychloroquine 200 mg tablet 400 mg PO DAILY Qty: 180 1RF Rx Instructions: TAKE 1 TABLET BY MOUTH TWICE A DAY methotrexate sodium 2.5 mg tablet 5 mg PO DIRECTED Qty: 30 1RF Rx Instructions: TAKE 2 TABLETS BY MOUTH EVERY 7 DAYS pantoprazole 40 mg tablet,delayed release (DR/EC) 40 mg PO DAILY Qty: 90 1RF Rx Instructions: TAKE 1 TABLET BY MOUTH EACH MORNING 30 MINUTES BEFORE MEAL DAILY prednisone 2.5 mg tablet 2.5 mg PO DAILY Qty: 90 1RF Rx Instructions: TAKE 1 TABLET BY MOUTH EVERY DAY prednisone 20 mg tablet 20 mg PO DAILY PRN (Reason: joint pain flare) Rx Instructions: take 1 tab daily for 3-7 days as needed for arthritis flare PO PRN; tamsulosin 0.4 mg capsule 0.4 mg PO DAILY Rx Instructions: TAKE 1 CAPSULE BY MOUTH EVERY DAY Discharge Orders: Discharge ED (Routine); Ordered 09/11/24 Ordered By: Nallely Galvan Referrals: Ernesto Stallworth MD [Primary Care Provider, [facility]] Discharge Diet: Clear Liquid Discharge Activity: Resume usual activity Patient Instructions: Pancreatitis (ED), Urinary Tract Infection in Men (ED), Clear Liquid Diet (ED), Patient Portal & Corey Instructions Activity Restrictions/Additional Instructions: Call your doctor tomorrow regarding your rheumatoid arthritis medications to review. Clear liquid diet x 72 hours. Advance to a full liquid diet if this is tolerated. Return to ED if you have worsening pain, ongoing nausea, and vomiting. Antibiotics have been sent to the pharmacy for possible UTI. As noted, the culture is pending, and these may need to be stopped if it is normal. In the interim, take a probiotic, or active culture yogurt when you are able to expand to a full liquid diet. Return to ED with worsening pain to your back, or lower abdomen, or temperature greater than 100.4 ?F. Print Language: Greek Coding Level of Care Code ED Db2 Developer for [employer]aton
[2024-09-11 21:51] LABS: Glucose Urine UA Negative (Normal); Nitrate Urine Negative (Negative); Specific Gravity, Urine 1.020 (1.005-1.030)
[2024-09-11 21:54] LABS: Add Urine Microscopic? YES
[2024-09-11 22:06] VITALS: BP 127/70; O2SAT 94
[2024-09-11 22:28] LABS: Hematocrit 38.2 % (37-53); Hemoglobin 12.50 g/dL (11.27-16.99); Mean Corpuscular HGB Conc 32.7 g/dL (30-55); Mean Corpuscular Hemoglobin 32.2 pg (27-33); Mean Corpuscular Volume 98.5 fl (82-101); Nucleated Red Blood Cells % 0 %; Platelet Count 151 10^3/cmm (157-399); Red Blood Count 3.88 10^6/uL (3.85-5.65); White Blood Count 10.61 10^3/uL (3.29-11.43)
[2024-09-11 22:44] LABS: Alanine Aminotransferase 13 U/L (0-41); Albumin Level 3.5 g/dL (3.5-5.2); Alkaline Phosphatase 86 U/L (40-130); Aspartate Amino Transferase 19 U/L (0-40); Blood Urea Nitrogen 17 mg/dL (8-23); Calcium 8.6 mg/dL (8.5-10.5); Carbon Dioxide 23 mmol/L (22-29); Chloride 102 mmol/L (98-107); Creatinine Clr Calc Pharmacy 93.9896; Globulin 3.0 g/dL (1.3-4.6); Glucose 123 mg/dL (65-115); Lipase 44 U/L (13-60); Osmolality Calculated 287 mOsm/kg (285-295); Sodium 137 mmol/L (136-145); Total Protein 6.5 g/dL (6.6-8.7)
[2024-09-11 22:45] LABS: Lactic Sepsis W/Reflex 0.8 mmol/L (0.5-2.2)
[2024-09-11] MEDS: cefTRIAXone 1,000 mg SDV 1000 MG IVP (22:47)
[2024-09-11 22:50] LABS: Anion Gap 16.1 (5-19); Potassium 4.1 mmol/L (3.5-5.1)
[2024-09-11 22:53] VITALS: BP 145/76
[2024-09-11] MEDS: iohexol 350 mg/mL 500 mL Btl (per mL) IV (22:54)
[2024-09-11 23:04] VITALS: O2SAT 98
[2024-09-11 23:30] VITALS: O2SAT 95
[2024-09-11] MEDS: ondansetron 2 mg/ML SDV 2 mL 4 MG IVP (23:53)
[2024-09-11] MEDS: morphine 4 mg/mL SDV 1 mL IVP (23:55)
[2024-09-12 00:33] LABS: Triglycerides 53 mg/dL (0-150)
[2024-09-12 00:53] VITALS: BP 129/67; PULSE 92; RESP 17; O2SAT 91
== END 2024-09-12 00:54 | disposition home or self-care (01) ==
PROVIDERS: Emergency Provider Physician Assistant; PCP Family Medicine
DX: R82.81 Pyuria (principal); K85.00 Idiopathic acute pancreatitis without necrosis or infection; Z79.82 Long term (current) use of aspirin; Z85.828 Personal history of other malignant neoplasm of skin
CPT/HCPCS: 74177; 80053; 81001; 83605; 83690; 84478; 85025; 87086; 96361; 96374; 96375; 99285; J0696; J2270; J2405; J7030

== ENCOUNTER → 2025-01-02 13:58 | Outpatient (BNVA) | payer MEDICARE, OTHER, SELFPAY | PROVIDERS: PCP Family Medicine; Visit Provider Internal Medicine Rheumatology | DX: M05.79 Rheumatoid arthritis with rheumatoid factor of multiple sites without organ or systems involvement (principal); Z79.899 Other long term (current) drug therapy; Z71.85 Encounter for immunization safety counseling; M17.0 Bilateral primary osteoarthritis of knee; Z96.652 Presence of left artificial knee joint; Z98.890 Other specified postprocedural states | CPT/HCPCS: 99214 ==

== ENCOUNTER 2025-02-07 04:43 | Outpatient (CLI) | payer MEDICARE, OTHER, SELFPAY | END 2025-02-07 04:44 | disposition home or self-care (01) | LOC: SLEEP 04:43 | PROVIDERS: PCP Family Medicine; Referring Provider Family Medicine; Visit Provider Internal Medicine Pulmonary Disease | DX: G47.33 Obstructive sleep apnea (adult) (pediatric) (principal) | CPT/HCPCS: 95811 ==

== ENCOUNTER 2025-02-07 14:02 | Emergency (ER) | payer MEDICARE, OTHER, SELFPAY ==
--- OUTSIDE RECORDS SUMMARY | 2024-07-14 06:00 | XMS_ITS ---
Author Organization [facility] Address [address] [place] [address] Care Team Providers Care Desktop Operator Name Role Phone Basim VILLALTA, Ernesto Primary Care Provider ELIZABETH Bowles [phone] REASON FOR VISIT Cystoscopy Bladder Biopsy Poss TURBT @ [facility] Encounters Encounter Location Date Provider Diagnosis [facility] [address] [place] [address] 07/14/2024 ELIZABETH CORCORAN Plan Of Treatment Next Appt Details Provider Name:ELIZABETH Deng, 03/12/2025 01:10:00 PM, [address] [place], [address], Progress Notes * Jhonatan LEWIS RDOB:1950 ( 74 yo M)Acc No.[id number]:07/14/2024 Patient: Stephen Jhonatan SMITH Provider: Blayne CORCORAN MD :1950 A ge:73 Y S ex:Male Date:07/14/2024 Address:[address] [place] [id number] Pcp:Ernesto Stallworth MD * Billing Information: * Visit Code: * Procedure Codes: * Electronic signature of AUST IN MD NILO on 02/07/2025 at 02:07 PM VISION TEACHER Sign off status: Pending * Provider: Blayne CORCORAN MD Date: 07/14/2024 Generated for Ruby carmichael/Patrick/Marissa on: 1 04/10/2024 02:07 PM VISION TEACHER
[2025-02-07 14:05] VITALS: BP 150/84; PULSE 87; TEMP 36.8; O2SAT 94
--- OUTSIDE RECORDS SUMMARY | 2025-02-07 14:07 | XMS_ITS | Clinical Summary ---
Author Organization [facility] [place] Address [address] [place] [address] Phone Care Team Providers Care Chair Spring Assembler Name Role Phone True Bean Primary Care [...] COVID-19 VACCINE - EMERGENCY USE AUTHORIZATION, MRNA, [id number](PF) 30 MCG/0.3 ML IM SUSP 04/12/2020,03/15/2020 Influenza [...] on file Legal Sex Male 3:51 PM PEARLER Gender Identity Not on file Sexual Orientation Not on file Last Filed Vital Signs Vital Sign Reading Time Taken Comments Blood Pressure 124/86 04/24/2020 12:36 PM PEARLER Pulse 69 04/24/2020 12:36 PM PEARLER Temperature 36.8 C (98.2 F) 03/20/2014 12:52 PM PEARLER Respiratory Rate - - Oxygen Saturation - - Inhaled Oxygen Concentration - - Weight 111.6 kg (246 lb) 04/24/2020 12:36 PM PEARLER Height 190.5 cm (6' 3 ) 04/24/2020 12:36 PM PEARLER Body Mass Index 30.75 04/24/2020 12:36 PM PEARLER Plan of Treatment Health Maintenance Due Date Last Done Comments PNEUMOCOCCAL VACCINE 50+ YEA RS (1 of 1 - PCV) 1998 ZOSTER VACCINE (1 of 2) 1998 DTAP/TDAP/TD VACCINES (2 - Td or Tdap) 07/18/2019 RSV VACCINE (60+ or ) (1 - 1-dose 75+ series) 11/11/2023 INFLUENZA VACCINE (#1) 2024 11/23/2012, 2009 COVID-19 Vaccine ( - season) 2024, 03/15/2020 Insurance [id number] [place] [address] MEDICARE PART A AND B Care Teams Chair Spring Assembler Relationship Specialty Start Date End Date True Bean DO [address] [facility] [place] [address] [place] [address] PCP - General 04/19/20
--- OUTSIDE RECORDS SUMMARY | 2025-02-07 14:07 | XMS_ITS | Encounter Summary ---
Author Organization [facility] Address [address] [place] [address] Care Team Providers Care Hide And Skin Processing Worker Name Role Phone True Bean DO Primary Care Provide r Encounter Details Date Type Department Care Team (Late st Contact Info) Description 12/20/2003 Outpatient Historical [facility] [place] [address] [place] [id number] Arnel Pittman DO [address] [place] [address] INFLAMM POLYARTHROP NOS (CMS/HCC) (Primary Dx) Social History Tobacco Use Types Packs/Day Years Used Date Smoking Tobacco: Never Assessed Sex and Gender Information Value Date Recorded Sex Assigned at Not on file Legal Sex Male 2:53 AM 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
--- OUTSIDE RECORDS SUMMARY | 2025-02-07 14:07 | XMS_ITS | Encounter Summary ---
Author Organization [facility] Address [address] [place] [address] Care Team Providers Care System Validation Engineer Name Role Phone True Bean DO Primary Care Provide r Encounter Details Date Type Department Care Team (Late st Contact Info) Description 05/22/2004 Outpatient Historical [facility] [place] [address] [place] [id number] Arnel Pittman DO [address] [place] [address] EMPHYSEMA NEC (CMS/HCC) (Primary Dx) Social History Tobacco Use Types Packs/Day Years Used Date Smoking Tobacco: Never Assessed Sex and Gender Information Value Date Recorded Sex Assigned at Not on file Legal 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
--- OUTSIDE RECORDS SUMMARY | 2025-02-07 14:07 | XMS_ITS | Continuity of Care Document ---
Author Organization [facility] Justo, LSarahLTrevor, [place] ([facility]) Address [address] [place] [address] Care Team Providers Care Freight Caller Name Role Phone SANDRA MAURICIO Primary Care Provider ELAINE KAUFMAN Referring Provider Assessment No assessment recorded. Plan of Treatment Reminders Order Date Submit Date Provider Last Modified By Organization Details Last Modified Time Details Appointments None record ed. Lab None record ed. Referral None record ed. Procedures None record ed. Surgeries None record ed. Imaging None record ed. Medication Orders None record ed. Patient TargetsNo targets recorded. Patient Instructions Encounter Date Encounter Id Patient Instructions Last Modified By Organization Details Last Modified Time 12/01/2024 [id number] Discussion on advancing diet with BRAT diet and fluids as tolerated [email or web address] Not available 12/01/2024 12:09:58 Reason for Referral None Reported. Problems Name Problem SNOMED Code Status Onset Date Resolution Date Notes Provider Name and Address Organization Details Recorded Time Rheumatoi d arthritis 03697622 Active 2022 JAREN costello [facility] 5 09:21:22 Hyperlipi demia 03089367 Active 2022 JAREN costello [facility] 5 09:21:31 Pain of bilateral knee joints 455228105309 104 Active 2024 Celsa costello [facility] 5 08:39:03 Gastroeso phageal reflux disease 479854016 Active 2024 Celsa Carr [facility] 5 08:39:27 Eczema 69401108 Completed 202405/05/2024 Celsa Carr [facility] 5 08:39:54 Obstructi ve sleep apnea syndrome 56629440 Active 2024 JAREN AMAYA [facility] 5 11:16:35 Idiopathi c acute pancreati tis 450193146 Active 2024 JAREN AMAYA [facility] 16:16:36 Problem Notes None recorded. Procedures Surgical History Date Name Laterality Status Provider Name and Address Organization Details Recorded Time total knee replacement completed [facility] 05/05/2024 09:43:43 lobectomy of lung completed [facility] 05/05/2024 09:45:01 Imaging Results None recorded. Procedure Notes None recorded. Medical Equipment None Reported. Allergies Allergen ID Allergen Name Allergen Category Reaction Reaction Severity Criticality Documentation Date Start Date Code Code System Note Provider Name and Address Organization Details Recorded Time 38236 penicilli n V potassium medicatio n Not available Not available Not available 09/12/2022 5 RxNorm Comme nt: Recor ded 03/02 3:35P M by Mari deng RN, Offic e Visit ; Promo evangelina; Frankie trivedi ce: *; Reaso n: Drug aller gy; ; JAREN AMAYA [facility] 09:20:57 86700 Product containin g penicilli n (product) medicatio n hives Not available Not available 05/05/2024 15354 8001 SNOMED JARENCYNTHIA AMAYA null, [facility] [place]. 5 09:20:55 38301 amoxicill in medicatio n Not available Not available Not available 01/24/20252024 723 RxNorm Celsa costello, [facility] [place]. 5 08:39:38 43257 cephalexi n medicatio n itching rash Not available Not available [facility] 01/24/20252010 2231 RxNorm Not Available [facility] - External Data Service - prod 5 03:39:44 Medications Name Sig Start Date Stop Date [...] 1 TABLET BY MOUTH TWICE A DAY 01/22 completed Not Available Not Available Not Available [...] t Available prednison e 2.5 mg tablet 2.5 MG ORALLY DAILY TAKE 1 TABLET BY MOUTH EVERY DAY [...] ondansetr on 4 mg disintegr ating tablet TAKE 1 TABLET BY MOUTH EVERY 8 HOURS NEEDED FOR NAUSEA AND VOMITING FOR 4 DAYS 10/06 completed Not Available Not Available Not Available cefdinir 300 mg capsule TAKE 1 CAPSULE BY MOUTH TWICE A DAY FOR 10 DAYS 10/06 completed Not Available Not Available Not Available [...] in each nostril 06/20 completed Recorded 03/02/19 23 3:36PM by Yvonne Carter RN, Office Visit; Refill Quantity : 0; Not Available Not Available Not Available garlic 1000 mg daily active Not Available Not Available No t Available folic acid daily 05/05 completed 0; Recorded 03/02/19 23 3:36PM by Yvonne Carter RN, Office Visit; Not Available Not Available Not Available methotrex ate once a week 06/20 completed for arthriailyn s CS/sd; 75574; Recorded 05/29/19 22 8:51AM by Carmina Loyola (Terry henry through True Bean DO), Office Visit; Refill Quantity : 0; Not Available Not Available Not Available prednison e daily 05/05 completed 0; Recorded 03/02/19 3:36PM by Yvonne Carter RN, Office Visit; Not Available Not Available Not Available Brainard-3 1000 mg daily 2018 active Not Available [...] height Body mass index (BMI) Body weight Respiratory rate Heart rate Oxygen saturation Body temperature Systolic And Diastolic Provider Name and Address Organization Details Last Updated DateTime 190.5 cm 29.1 kg/m2 783509. 02 g 20 /min 81 /min 99 % 98 [degF] 98/62 mm[Hg] BALBINA SETHI [facility] 11:39:26 Social History Question Answer Notes LastModified by Organizat ion Details LastModified Time Tobacco Smoking Status [facility] 07/27/2022 14:05:05 Are You Blind Or Do You Have Difficulty Seeing? No [email or web address] Information not available 07/27/2022 Are You Deaf Or Do You Have Serious Difficulty Hearing? No Information not available 07/27/2022 Have You Had Direct Contact, Or Contact During Intimacy, With Monkeypox Rash, Scabs, Or Body Fluids From A Person With Monkeypox? No [email or web address] Information not available 07/27/2022 What Was The Date Of Your Most Recent Tobacco Screening? 12/01/2024 [email or web address] Information not available 12/01/2024 Have You Recently Traveled Abroad? No Information not available 07/27/2022 Do You Have Difficulty Walking Or Climbing Stairs? No [email or web address] Information not available 07/27/2022 Sex: Unknown Functional Status Question Answer Note LastModified by Organizat ion Details LastModified Time Do you use any illicit or recreational drugs? No [email or web address] Information not available 05/05/2024 Do you or have you ever used any other forms of tobacco or nicotine? No [email or web address] Information not available 05/05/2024 What is your level of alcohol consumption? None [email or web address] Information not available 05/05/2024 Are you able to walk independently without assistance or assistive devices? YESWOREST [email or web address] Information not available 07/27/2022 Do you have difficulty doing errands alone? No [email or web address] Information not available 07/27/2022 Are you able to care for yourself independently? Yes [email or web address] Information not available 07/27/2022 Do you have difficulty dressing, bathing, grooming, or toileting? No [email or web address] Information not available 07/27/2022 Do you or have you ever used any nicotine-free cigarettes, vape, or chewing tobacco? No [email or web address] Information not available 05/05/2024 Mental Status Question Answer Note LastModified by Organization D etails LastModified Time Do you have difficulty concentrating, remembering or making decisions? No [email or web address] Information no t available 07/27/2022 Family History Relationship Description Onset Age of this Age Resolved Age Notes LastModified by Organization Details LastModified Time Brother Malignant neoplasm of prostate [email or web address] Not available 2024 08:22:49 Brother Diabetes mellitus [email or web address] Not available 05/05 09:42:49 Father Neoplasm of brain [email or web address] Not available 2024 08:23:10 Sister Malignant neoplasm of gallbladder [email or web address] Not available 09:42:29 Sister Diabetes mellitus [email or web address] Not available 05/05 09:42:49 Medical History No medical history recorded. Immunizations Vaccine Type Date Status Note Provider Nam e and Address Organization Details Recorded Time COVID-19, mRNA, LNP-S, PF, 30 mcg/0.3 mL dose completed JAREN costello [facility] 05/05/2024 09:20:36 COVID-19, mRNA, LNP-S, PF, 30 mcg/0.3 mL dose 1 completed JAREN AMAYA null, [facility] 05/05/2024 09:20:36 COVID-19, mRNA, LNP-S, PF, 30 mcg/0.3 mL dose 2 completed JAREN AMAYA null, [facility] 05/05/2024 09:20:36 COVID-19, mRNA, LNP-S, PF, 30 mcg/0.3 mL dose 1 completed JAREN AMAYA null, [facility] 05/05/2024 09:20:36 COVID-19, mRNA, LNP-S, bivalent, PF, 30 mcg/0.3 mL dose 2 completed JAREN AMAYA null, [facility] 05/05/2024 09:20:36 Tdap 2 completed JAREN AMAYA null, [facility] 05/05/2024 09:20:36 Tdap 0 completed JAREN AMAYA null, [facility] 05/05/2024 09:20:36 Influenza, high-dose, trivalent, PF 9 completed JAREN AMAYA null, [facility] 05/05/2024 09:20:36 Influenza, split virus, trivalent, preservative 2 completed JAREN AMAYA null, [facility] 05/05/2024 09:20:36 Influenza, split virus, trivalent, preservative 1 completed JAREN AMAYA null, [facility] 05/05/2024 09:20:36 zoster recombinant 4 completed JAREN AMAYA null, [facility] 05/05/2024 09:36:09 zoster recombinant 4 completed JAREN costello, [facility] 05/05/2024 09:36:09 COVID-19, mRNA, LNP-S, PF, liang-sucrose, 30 mcg/0.3 mL 4 completed JAREN costello, [facility] 05/05/2024 09:36:09 Influenza, split virus, trivalent, preservative 3 completed JAREN AMAYA null, [facility] 05/05/2024 09:36:09 Influenza, adjuvanted, trivalent, PF 4 completed Not Available [facility] 01/24/2025 08:26:50 COVID-19, mRNA, LNP-S, PF, 50 mcg/0.5 mL 4 completed Not Available [facility] 01/24/2025 08:26:50 Influenza, high-dose, trivalent, PF 5 completed Not Available [facility] 01/24/2025 08:26:50 COVID-19, mRNA, LNP-S, PF, 10 mcg/0.2 mL 5 completed Not Available [facility] 01/24/2025 08:26:50 Pneumococcal Conjugate, unspecified formulation 3 completed Not Available [facility] 09/12/2022 02:18:55 Td(adult) unspecified formulation 3 completed Not Available [facility] 09/12/2022 02:18:55 Past Encounters Encounter ID Performer Location Encounter Start Date Encounter Closed Date Diagnosis/Indication Diagnosis SNOMED-CT Code Diagnosis ICD10 Code Diagnosis IMO Codes Diagnosis Note [id number] EDITH RHODES APRN [facility] ([facility]) [address] [place] [address] 12/01/2024 11:00:52 12/01/2024 19:02:21 Diarrhea 52584418 R19.7 [id number] Viral disease 68819113 B 34.9 50643 Health Concerns Section Related Observation LastModified by Organization Detai ls LastModified Time None Recorded Concern Status LastModified by Organization Details LastModified Time None Recorded Payers Encounter Date Sequence Insurance Name Policy Number Policy Robledo Covered Member ID Robledo Member ID Guarantor Name 12/01/2024 1 [place] Jhonatan Deng Tune [id number] Jhonatan R Tune 12/01/2024 2 [employer] (MEDICARE SUPPLEMENT) Jhonatan Deng Tune [id number] Jhonatan Lewis Notes Date Note Type Note Provider Name and Address Organization Details Recorded Time 12/01/2024 text/html Abdominal PainRe ported by PatientAbdominal PainFor quality, patient reportsaching. For associated symptoms, patient reportsnausea,diarrhea , anddecreased appetitebut reportsno fever,no blood in the urine, andno blood in stool. For location, patient reportsruq,luq, andepigastric. For severity, patient reportsmoderate. For onset/timing, patient reportsacute.ROS as noted in the HPI walk-inpatient is here today with c/o diarrhea, abdominal pain. He stated that on Wednesday night into wednesday he started having diarrhea and vomiting, he did a liquid diet on wednesday and then on he was feeling some better, he tried to advance his diet. Last night he started having pain in his abdomen and up into his chest.He expressed some concern that he has had pancreatitis, he is concerned about this.Pt has continued to have diarrhea, but no vomiting.. Does not think that he has had fever EDITH RHODES, ENVIRONMENTAL ADVISOR [address] [place], [address], [facility] La [facility]ente [facility] 12/01/2024 18:50:50
--- OUTSIDE RECORDS SUMMARY | 2025-02-07 14:07 | XMS_ITS | Continuity of Care Document ---
Author Organization [facility] Kemp, [facility] ([facility]) Address [address] [place] [address] Care Team Providers Care Vice President Of Talent Acquisition Name Role Phone SANDRA MAURICIO Primary Care Provider ELAINE KAUFMAN Referring Provider [phone] Assessment No assessment recorded. Plan of Treatment Reminders Order Date Submit Date Provider Last Modified By Organization Details Last Modified Time Details Appointments None recorded. Lab None recorded. Referral None recorded. Procedures polysomnog jarvis, titration study (PROC) [address] [facility] [place], [address] [place] [address] [place], [address], 09:27:45 Surgeries None recorded. Imaging None recorded. Medication Orders None recorded. Patient TargetsNo targets recorded. Patient InstructionsNo instructions recorded. Reason for Referral None Reported. Results Created Date Observation Date Name Description Value Unit Range Abnormal Flag Note LastModifiedBy Organization Detail LastModifiedTime 12/27/1912/26/2024 CBC WBC 6.1 x10 4.5-10 .5 Not Available [facility] [address] [facility] [address], [place], [address], 12/26/2024 16:43:37 12/27/19 25 12/26/2024 CBC RBC 4.24 x10 4.30-5 .90 low Not Available [facility] [address] [facility] [address], [place], [address], 12/26/2024 16:43:37 12/27/19 25 12/26/2024 CBC HGB 14.0 g/dL 13.5-1 8.0 Not Available [facility] [address] [facility] [address], [place], [address], 12/26/2024 16:43:37 12/27/19 25 12/26/2024 CBC HCT 43.1 % 35.0-6 0.0 Not Available [facility] [address] [facility] [address], [place], [address], 12/26/2024 16:43:37 12/27/19 25 12/26/2024 CBC MCV 101.6 fL 80.0-9 9.9 high Not Available [facility] [address] [facility] [address], [place], [address], 12/26/2024 16:43:37 12/27/19 25 12/26/2024 CBC MCH 33.1 pg 27.0-3 2.0 high Not Available [facility] [address] [facility] [address], [place], [address], 12/26/2024 16:43:37 12/27/19 25 12/26/2024 CBC MCHC 32.5 g/dL 32.0-3 6.0 Not Available [facility] [address] [facility] [address], [place], [address], 12/26/2024 16:43:37 12/27/19 25 12/26/2024 CBC RDW 13.7 % 11.5-1 4.5 Not Available [facility] [address] [facility] [address], [place], [address], 12/26/2024 16:43:37 12/27/19 25 12/26/2024 CBC plt 167.6 x10 150.0- 451.0 Not Available [facility] [address] [facility], [place], [address], 12/26/2024 16:43:37 12/27/19 25 12/26/2024 CBC lymphocytes % 22.6 % 20.0-5 0.0 Not Available [facility] [address] [place] [address] [facility] [address], [place], [address], 12/26/2024 16:43:37 12/27/19 25 12/26/2024 CBC granulcytes % 62.6 % 30.0-7 0.0 Not Available [facility] [address] [place] [address] [facility] [address], [place], [address], 12/26/2024 16:43:37 12/27/19 25 12/26/2024 CBC monocytes % 11.4 % 2.0-16 .0 Not Available [facility] [address] [place] [address], [place], [address], 12/26/2024 16:43:37 12/27/19 25 12/26/2024 CBC granulcytes# 3.8 x10 Not Breana ilable [facility] [address] [facility], [place], [address], 12/26/2024 16:43:37 12/27/19 25 12/26/2024 CBC lymphocytes # 1.4 x10 Not Available [facility] [address] [place] [address] [facility] [address], [place], [address], 12/26/2024 16:43:37 12/27/19 25 12/26/2024 CBC monocytes # 0.7 x10 Not Avai lable [facility] [address] [facility], [place], [address], 12/26/2024 16:43:37 12/27/19 25 12/26/2024 LIVER PANEL (MALE ) total protein 7.0 g/dL 6.0-8. 5 Not Available [facility] [address] [facility], [place], [address], 12/26/2024 17:32:09 12/27/19 25 12/26/2024 LIVER PANEL (MALE ) total bilirubin 0.8 mg/dL 0.2-1. 3 Not Available [facility] [address] [facility], [place], [address], 12/26/2024 17:32:09 12/27/19 25 12/26/2024 LIVER PANEL (MALE ) conj. bilirubin (direct) 0.00 mg/dL 0.00-0 .40 Not Available [facility] [address] [facility], [place], [address], 12/26/2024 17:32:09 12/27/19 25 12/26/2024 LIVER PANEL (MALE ) albumin 3.8 g/dL 3.5-5. 5 Not Available [facility] [address] [place] [facility], [place], [address], 12/26/2024 17:32:09 12/27/1912/26/2024 LIVER PANEL (MALE ) AST (SGOT) 30.0 U/L 0.0-46 .0 Not Available [place] [address] [facility], [place], [address], 12/26/2024 17:32:09 12/27/19 25 12/26/2024 LIVER PANEL (MALE ) altv (SGPT) 23.0 U/L 13.0-6 9.0 normal Not Available [facility] [address] [place] [address] [facility] 1, [place], [address], 12/26/2024 17:32:09 12/27/1912/26/2024 LIVER PANEL (MALE ) ALP phos 83.0 U/L 30.0-1 40.0 normal Not Available [facility] [address] [facility], [place], [address], 12/26/2024 17:32:09 12/27/1912/27/2024 C-ABDILE CTIVE PROTE IN C-reactive protein 3.5 mg/L <8.0 normal Not Available [facility] [address] [place], [address], 12/27/2024 04:58:31 12/27/1912/26/2024 ESR (eryt hrocy te sedim entat ion rate) , blood SedRate 30 Not Available [facility] ([facility] [address] [place], [address], 12/26/2024 16:24:47 Result Notes None recorded. Problems Name Problem SNOMED Code Status Onset Date Resolution Date Notes Provider Name and Address Organization Details Recorded Time Rheumatoi d arthritis 45244320 Active 2022 JAREN costello [facility] 5 09:21:22 Hyperlipi demia 77606426 Active 2022 JAREN costello [facility] 5 09:21:31 Pain of bilateral knee joints 203516056588 104 Active 2024 Celsa costello [facility] 5 08:39:03 Gastroeso phageal reflux disease 990555169 Active 2024 Celsa costello [facility] 5 08:39:27 Eczema 60967862 Completed 202405/05/2024 Celsa costello [facility] MaeganL.CS[facility] 5 08:39:54 Obstructi ve sleep apnea syndrome 90208705 Active 2024 [facility] 11:16:35 Idiopathi c acute pancreati tis 373896361 Active 2024 [facility] 16:16:36 Problem Notes None recorded. Procedures Surgical History Date Name Laterality Status Provider Name and Address Organization Details Recorded Time total knee replacement completed JAREN AMAYA [facility] 05/05/2024 09:43:43 lobectomy of lung completed JAREN AMAYA [facility] 05/05/2024 09:45:01 Imaging Results None recorded. Procedure Notes None recorded. Medical Equipment None Reported. Allergies Allergen ID Allergen Name Allergen Category Reaction Reaction Severity Criticality Documentation Date Start Date Code Code System Note Provider Name and Address Organization Details Recorded Time 57471 penicilli n V potassium medicatio n Not available Not available Not available 09/12/2022 5 RxNorm Comme nt: Recor ded 03/02 3:35P M by Mari chapa RN, Offic e Visit ; Promo evangelina; Frankie trivedi ce: *; Reaso n: Drug aller gy; ; [facility] 09:20:57 12883 Product containin g penicilli n (product) medicatio n hives Not available Not available 05/05/2024 90590 8001 SNOMED [facility] 09:20:55 06196 amoxicill in medicatio n Not available Not available Not available 01/24/20252024 723 RxNorm [facility] 08:39:38 55797 cephalexi n medicatio n itching rash Not available Not available [facility] 01/24/20252010 2231 RxNorm Not Available richard - External Data Service - prod 03:39:44 Medications Name Sig Start Date Stop [...] ate once a week 06/20 completed for kamar s CS/sd; 96722; Recorded 05/29/19 8:51AM by Carmina Loyola (Authori carl through True Bean DO), Office Visit; Refill Quantity : 0; Not Available Not Available Not Available prednison e daily 05/05 completed 0; Recorded 03/02/19 3:36PM by Yvonne Carter RN, Office Visit; Not Available Not Available Not Available [place]-3 1000 mg daily 2018 active Not Available Not Available Not Avai lable Vitamin D3 50 mcg daily active Not Available Not Available No t Available Enbrel weekly 06/20 completed 0; Recorded 03/02/19 3:36PM by Yvonne e M. Carter, RN, Office Visit; Not Available Not Available Not Available Eliquis 2.5 mg tablet TAKE 1 TABLET BY MOUTH TWICE A DAY FOR 2 WEEKS 05/05 completed Not Available Not Available Not Available Vitals Date Recorded Body height Body mass index (BMI) Body weight Body temperature Heart rate Oxygen saturation Systolic And Diastolic Provider Name and Address Organization Details Last Updated DateTime 5 190.5 cm 29.7 kg/m2 623418. 98 g 98 [degF] 76 /min 96 % 120/68 mm[Hg] Celsa Carr [facility] 08:41:05 Social History Question Answer Notes LastModified by [employer] Details LastModified Time Tobacco Smoking Status Never Smoker [facility] 07/27/2022 14:05:05 Are You Blind Or Do You Have Difficulty Seeing? No [email or web address] Information not available 07/27/2022 Are You Deaf Or Do You Have Serious Difficulty Hearing? No Information not available 07/27/2022 Have You Had Direct Contact, Or Contact During Intimacy, With Monkeypox Rash, Scabs, Or Body Fluids From A Person With Monkeypox? No [email or web address] Information not available 07/27/2022 What Was The Date Of Your Most Recent Tobacco Screening? 12/01/2024 [email or web address] Information not available 12/01/2024 Have You Recently Traveled Abroad? No [email or web address] Information not available 07/27/2022 Do You Have Difficulty Walking Or Climbing Stairs? No [email or web address] Information not available 07/27/2022 Sex: Unknown Functional Status Question Answer Note LastModified by [employer] ion Details LastModified Time Do you use any illicit or recreational drugs? No [email or web address] Information not available 05/05/2024 Do you or have you ever used any other forms of tobacco or nicotine? No [email or web address] Information not available 05/05/2024 What is your level of alcohol consumption? None [email or web address] Information not available 05/05/2024 Are you able to walk independently without assistance or assistive devices? YESWOREST [email or web address] Information not available 07/27/2022 Do you have difficulty doing errands alone? No Information not available 07/27/2022 Are you able to care for yourself independently? Yes [email or web address] Information not available 07/27/2022 Do you have difficulty dressing, bathing, grooming, or toileting? No [email or web address] Information not available 07/27/2022 Do you or have you ever used any nicotine-free cigarettes, vape, or chewing tobacco? No [email or web address] Information not available 05/05/2024 Mental Status Question Answer Note LastModified by Organization D etails LastModified Time Do you have difficulty concentrating, remembering or making decisions? No [email or web address] Information no t available 07/27/2022 Family History Relationship Description Onset Age of this Age Resolved Age Notes LastModified by Organization Details LastModified Time Brother Malignant neoplasm of [place] [address] Not available 2024 08:22:49 Brother Diabetes mellitus [email or web address] Not available 05/05 09:42:49 Father Neoplasm of brain [place] [address] Not available 2024 08:23:10 Sister Malignant neoplasm of gallbladder [email or web address] Not available 09:42:29 Sister Diabetes mellitus [place] [address] Not available 05/05 09:42:49 Medical History No medical history recorded. Immunizations Vaccine Type Date Status Note Provider Nam e and Address Organization Details Recorded Time COVID-19, mRNA, LNP-S, PF, 30 mcg/0.3 mL dose 1 completed JAREN costello [facility] 05/05/2024 09:20:36 COVID-19, mRNA, LNP-S, PF, 30 mcg/0.3 mL dose 1 completed JAREN costello [facility] 05/05/2024 09:20:36 COVID-19, mRNA, LNP-S, PF, 30 mcg/0.3 mL dose 2 completed JAREN costello [facility] 05/05/2024 09:20:36 COVID-19, mRNA, LNP-S, PF, 30 mcg/0.3 mL dose 1 completed JAREN costello [facility] 05/05/2024 09:20:36 COVID-19, mRNA, LNP-S, bivalent, PF, 30 mcg/0.3 mL dose 2 completed JAREN AMAYA null, [facility] 05/05/2024 09:20:36 Tdap 2 completed JAREN AMAYA null, [facility] 05/05/2024 09:20:36 Tdap 0 completed JAREN AMAYA null, [facility] 05/05/2024 09:20:36 Influenza, high-dose, trivalent, PF 9 completed JAREN AMAYA null, [facility] 05/05/2024 09:20:36 Influenza, split virus, trivalent, preservative 2 completed JAREN AMAYA null, [facility] 05/05/2024 09:20:36 Influenza, split virus, trivalent, preservative 1 completed JAREN AMAYA null, [facility] 05/05/2024 09:20:36 zoster recombinant 4 completed JAREN AMAYA null, [facility] 05/05/2024 09:36:09 zoster recombinant 4 completed JAREN AMAYA null, [facility] 05/05/2024 09:36:09 COVID-19, mRNA, LNP-S, PF, liang-sucrose, 30 mcg/0.3 mL 4 completed JAREN AMAYA null, [facility] 05/05/2024 09:36:09 Influenza, split virus, trivalent, preservative 3 completed JAREN AMAYA null, [facility], Ramakrishna 05/05/2024 09:36:09 Influenza, adjuvanted, trivalent, PF 4 completed Not Available [facility] 01/24/2025 08:26:50 COVID-19, mRNA, LNP-S, PF, 50 mcg/0.5 mL 4 completed Not Available [facility] 01/24/2025 08:26:50 Influenza, high-dose, trivalent, PF 5 completed Not Available [facility] 01/24/2025 08:26:50 COVID-19, mRNA, LNP-S, PF, 10 mcg/0.2 mL 5 completed Not Available [facility] 01/24/2025 08:26:50 Pneumococcal Conjugate, unspecified formulation 3 completed Not Available [facility] 09/12/2022 02:18:55 Td(adult) unspecified formulation 3 completed Not Available [facility] 09/12/2022 02:18:55 Past Encounters Encounter ID Performer Location Encounter Start Date Encounter Closed Date Diagnosis/Indication Diagnosis SNOMED-CT Code Diagnosis ICD10 Code Diagnosis IMO Codes Diagnosis Note [id number] Sandra Mauricio MD [facility] ([facility]) [address] [place] [phone] 12/26/2024 16:23:10 12/27/2024 09:32:28 Long-term current use of drug therapy 386457446 Z79.294 1965142 [id number] Sandra Mauricio MD [facility] ([facility]) [address] [place] [phone] 01/24/2025 08:26:24 01/24/2025 14:15:48 Obstructive sleep apnea syndrome 26338821 G47.33 463677 his cpap is ineffectiv e in alleviatin g his daytime sleepiness . he has 20-30 ahi which is way too high. will increase orders to 6-20 cm h20 Health Concerns Section Related Observation LastModified by Organization Detai ls LastModified Time None Recorded Concern Status LastModified by Organization Details LastModified Time None Recorded Payers Encounter Date Sequence Insurance Name Policy Number Policy Robledo Covered Member ID Robledo Member ID Guarantor Name 01/24/2025 1 MEDICARE [place]: [place] Jhonatan Lewis [id number] Jhonatan Lewis 01/24/2025 2 [employer] (MEDICARE SUPPLEMENT) Jhonatan Lewis [id number] Jhonatan Lewis Notes Date Note Type Note Provider Name and Address Organization Details Recorded Time 01/24/2025 text/html Obstructive Slee p ApneaReported by PatientHPIFor associated symptoms, patient reportsdaytime sleepinessbut reportsno morning headacheandnormal concentration. For timing, patient reportschronic. For alleviating factors, patient reportspositive airway pressure devices.Pt states he has been using a cpap machine for about 6 months now and states he is typically having 20-30 events per hour. He would like to discuss if his cpap settings should be adjusted. Sandra Mauricio MD [address] [place] [address], [phone], [facility] 01/24/2025 09:15:47
--- OUTSIDE RECORDS SUMMARY | 2025-02-07 14:07 | XMS_ITS | Encounter Summary ---
Author Organization [facility] Address [address] [place] [address] Care Team Providers Care Teller Head Name Role Phone True Bean DO Primary Care Provide r Encounter Details Date Type Department Care Team (Late st Contact Info) Description 10/25/2003 Outpatient Historical [facility] Rheumatology- [facility] [place] [address] [place] [address] Arnel Pittman DO [address] [place] [address] RHEUMATOID ARTHRITIS (CMS/[facility]) (Primary Dx); [employer]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 Social History Tobacco Use Types Packs/Day Years Used Date Smoking Tobacco: Never Assessed Sex and Gender Information Value Date Recorded Sex Assigned at Not on file 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
--- OUTSIDE RECORDS SUMMARY | 2025-02-07 14:07 | XMS_ITS | Encounter Summary ---
Author Organization [facility] Address [address] [place] [address] Care Team Providers Care Ski Maker Wood Name Role Phone True Bean DO Primary Care Provide r Encounter Details Date Type Department Care Team (Late st Contact Info) Description 05/22/2004 Outpatient Historical [facility] Rheumatology- [facility] [place] [address] [place] [address] Arnel Pittman DO [address] [facility] [address] [place] [address] RHEUMATOID ARTHRITIS ([facility]) (Primary Dx); JOINT PAIN-MULT JTS; SYNOVITIS NOS; [employer]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 Social History Tobacco Use Types Packs/Day Years Used Date Smoking Tobacco: Never Assessed Sex and Gender Information Value Date Recorded Sex Assigned at Not on file 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 Gender Identity Not on file Sexual Orientation Not on file documented as of this encounter Plan of Treatment Not on file documented as of this encounter Visit Diagnoses Diagnosis Rheumatoid arthritis(714.0) (CMS/[facility])- Primary Rheumatoid arthritis Pain in joint, multiple sites Synovitis and tenosynovitis, unspecified Encounter for long-term (current) use of other medications documented in this encounter Care Teams Ski Maker Wood Relationship Specialty Start Date End Date True Bean DO [address] [place] [address] PCP - General Internal Medicine 03/19/15 documented as of this encounter
--- OUTSIDE RECORDS SUMMARY | 2025-02-07 14:07 | XMS_ITS | Continuity of Care Document ---
Author Organization HAILEY Lara [facility] Ramakrishna Kemp, [facility] ([facility]) Address [address] [place] [address] Care Team Providers Care Compound Filler Name Role Phone SANDRA STALLWORTH Primary Care Provider ELAINE KAUFMAN Referring Provider [phone] Assessment No assessment recorded. Plan of Treatment Reminders Order Date Submit Date Provider Last Modified By Organization Details Last Modified Time Details Appointments None recorded. Lab CBC 2024 025 AMARILLO Perez [facility], [address], [address], 5 16:43:37 C-reactiv e protein, quantitat shannon, serum or plasma 2024 025 [place] [facility], [address] [facility], [place], [address], 5 04:58:31 creatinin e, blood 2024 025 [email or web address] [facility] ([facility]), [address] [place], [address], 5 16:25:27 ESR (erythroc yte sedimenta tion rate), blood 2024 025 [facility] ([facility]), [address] [place], [address], 17:41:04 hepatic function panel, serum 2024 025 RICHARD Perez [facility], [address], [place], [address], 17:32:09 Referral None recorded. Procedures None recorded. Surgeries None recorded. Imaging None recorded. Medication Orders None recorded. Patient TargetsNo targets recorded. Patient InstructionsNo instructions recorded. Reason for Referral None Reported. Results Created Date Observation Date Name Description Value Unit Range Abnormal Flag Note LastModifiedBy Organization Detail LastModifiedTime 12/27/1912/26/2024 CBC WBC 6.1 x10 4.5-10 .5 Not Available Perez [facility] [address], [place], [address], 12/26/2024 16:43:37 12/27/1912/26/2024 CBC RBC 4.24 x10 4.30-5 .90 low Not Available Perez [facility] [address], [place], [address], 12/26/2024 16:43:37 12/27/19 25 12/26/2024 CBC HGB 14.0 g/dL 13.5-1 8.0 Not Available Perez [facility] [address], [place], [address], 12/26/2024 16:43:37 12/27/19 25 12/26/2024 CBC HCT 43.1 % 35.0-6 0.0 Not Available Perez [facility] [address], [place], [address], 12/26/2024 16:43:37 12/27/19 25 12/26/2024 CBC MCV 101.6 fL 80.0-9 9.9 high Not Available Perez [facility] [address], [place], [address], 12/26/2024 16:43:37 12/27/19 25 12/26/2024 CBC MCH 33.1 pg 27.0-3 2.0 high Not Available Perez [facility] [address] [facility] 1, [place], [address], 12/26/2024 16:43:37 12/27/19 25 12/26/2024 CBC MCHC 32.5 g/dL 32.0-3 6.0 Not Available [facility] [address] [facility] 1, [place], [address], 12/26/2024 16:43:37 12/27/19 25 12/26/2024 CBC RDW 13.7 % 11.5-1 4.5 Not Available [facility] [address] [place] [facility], [place], [address], 12/26/2024 16:43:37 12/27/19 25 12/26/2024 CBC plt 167.6 x10 150.0- 451.0 Not Available Perez [facility] [address] [place] [facility], [place], [address], 12/26/2024 16:43:37 12/27/19 25 12/26/2024 CBC lymphocytes % 22.6 % 20.0-5 0.0 Not Available [facility] [address] [place] [facility], [place], [address], 12/26/2024 16:43:37 12/27/19 25 12/26/2024 CBC granulcytes % 62.6 % 30.0-7 0.0 Not Available [facility] [address] [place] [address] [facility] 1, [place], [address], 12/26/2024 16:43:37 12/27/19 25 12/26/2024 CBC monocytes % 11.4 % 2.0-16 .0 Not Available [facility] [address] [facility] 1, [place], [address], 12/26/2024 16:43:37 12/27/19 25 12/26/2024 CBC granulcytes# 3.8 x10 Not Breana ilable [facility] [address] [facility] 1, [place], [address], 12/26/2024 16:43:37 12/27/19 25 12/26/2024 CBC lymphocytes # 1.4 x10 Not Available [facility] [address] [facility] 1, [place], [address], 12/26/2024 16:43:37 12/27/19 25 12/26/2024 CBC monocytes # 0.7 x10 Not Avai lable [facility] [address] [facility], [place], [address], 12/26/2024 16:43:37 12/27/19 25 12/26/2024 LIVER PANEL (MALE ) total protein 7.0 g/dL 6.0-8. 5 Not Available [facility] [address] [facility] 1, [place], [address], 12/26/2024 17:32:09 12/27/19 25 12/26/2024 LIVER PANEL (MALE ) total bilirubin 0.8 mg/dL 0.2-1. 3 Not Available [facility] [address] [facility], [place], [address], 12/26/2024 17:32:09 12/27/19 25 12/26/2024 LIVER PANEL (MALE ) conj. bilirubin (direct) 0.00 mg/dL 0.00-0 .40 Not Available [facility] [address] [facility] 1, [place], [address], 12/26/2024 17:32:09 12/27/19 25 12/26/2024 LIVER PANEL (MALE ) albumin 3.8 g/dL 3.5-5. 5 Not Available [facility] [address] [facility], [place], [address], 12/26/2024 17:32:09 12/27/19 25 12/26/2024 LIVER PANEL (MALE ) AST (SGOT) 30.0 U/L 0.0-46 .0 Not Available [facility] 5 [facility], [place], [address], 12/26/2024 17:32:09 12/27/19 25 12/26/2024 LIVER PANEL (MALE ) altv (SGPT) 23.0 U/L 13.0-6 9.0 normal Not Available [facility] [address] [facility], [place], [address], 12/26/2024 17:32:09 12/27/19 25 12/26/2024 LIVER PANEL (MALE ) ALP phos 83.0 U/L 30.0-1 40.0 normal Not Available [address] [place], [place], [address], 12/26/2024 17:32:09 12/27/19 25 12/27/2024 C-ABDIEL CTIVE PROTE IN C-reactive protein 3.5 mg/L <8.0 normal Not Available [facility] [address] [place] [address], [address], 12/27/2024 04:58:31 12/27/19 25 12/26/2024 ESR (eryt hrocy te sedim entat ion rate) , blood SedRate 30 Not Available [facility] ([facility]) [address] [place], [address], 12/26/2024 16:24:47 Result Notes None recorded. Problems Name Problem SNOMED Code Status Onset Date Resolution Date Notes Provider Name and Address Organization Details Recorded Time Rheumatoi d arthritis 24427329 [facility] 09:[facility]:22 Hyperlipi demia 60168298 [facility] 20[facility] 09:21:31 Pain of bilateral knee joints 617038414954 104 Active 2024 Celsa Carr [facility] 5 08:39:03 Gastroeso phageal reflux disease 571170941 Active 2024 Celsa Ayonobloch [facility] 5 08:39:27 Eczema 58893978 Completed 202405/05/2024 Celsa Merrittoch [facility] 5 08:39:54 Obstructi ve sleep apnea syndrome 38350160 Active 2024 JAREN AMAYA [facility] 5 11:16:35 Idiopathi c acute pancreati tis 376447449 Active 2024 JAREN AMAYA [facility] 5 16:16:36 Problem Notes None recorded. Procedures Surgical History Date Name Laterality Status Provider Name and Address Organization Details Recorded Time total knee replacement completed JARENCYNTHIA AMAYA [facility] 05/05/2024 09:43:43 lobectomy of lung completed [facility] 05/05/2024 09:45:01 Imaging Results None recorded. Procedure Notes None recorded. Medical Equipment None Reported. Allergies Allergen ID Allergen Name Allergen Category Reaction Reaction Severity Criticality Documentation Date Start Date Code Code System Note Provider Name and Address Organization Details Recorded Time 50712 penicilli n V potassium medicatio n Not available Not available Not available 09/12/2022 5 RxNorm Comme nt: Recor ded 03/02 3:35P M by Mari chapa RN, Offic e Visit ; Kevyn hutchinson; Frankie trivedi ce: *; Reaso n: Drug aller gy; ; JAREN AMAYA [facility] 09:20:57 80423 Product containin g penicilli n (product) medicatio n hives Not available Not available 05/05/2024 58775 8001 SNOMED JAREN AMAYA [facility] 09:20:55 79038 amoxicill in medicatio n Not available Not available Not available 01/24/20252024 723 RxNorm Celsa Carr [facility] 08:39:38 13659 cephalexi n medicatio n itching rash Not available Not available [facility] 01/24/20252010 2231 RxNorm Not Available richard - [...] completed Recorded 03/02/19 23 3:36PM by Yvonne e M. Carter, RN, Office Visit; Refill Quantity : 0; Not Available Not Available Not Available garlic 1000 mg daily active Not Available Not Available No t Available folic acid daily 05/05 completed 0; Recorded 03/02/19 3:36PM by Yvonne Carter RN, Office Visit; Not Available Not Available Not Available methotrex ate once a week 06/20 completed for kamar baeza CS/sd; 88803; Recorded 05/29/19 8:51AM by Carmina Loyola (Terry henry through True Bean DO), Office Visit; Refill Quantity : 0; Not Available Not Available Not Available prednison e daily 05/05 completed 0; Recorded 03/02/19 3:36PM by Yvonne Carter RN, Office Visit; Not Available Not Available Not Available Arden-3 1000 mg daily 2018 active Not Available [...] Not Available Not Available Not Available Vitals None Recorded Social History Question Answer Notes LastModified by Organizat ion Details LastModified Time Tobacco Smoking Status Never Smoker NEETA CARTER [facility], [facility] 07/27/2022 14:05:05 Are You Blind Or Do You Have Difficulty Seeing? No [email or web address] Information not available 07/27/2022 Are You Deaf Or Do You Have Serious Difficulty Hearing? No [email or web address] Information not available 07/27/2022 Have You Had Direct Contact, Or Contact During Intimacy, With Monkeypox Rash, Scabs, Or Body Fluids From A Person With Monkeypox? No [email or web address] Information not available 07/27/2022 What Was The Date Of Your Most Recent Tobacco Screening? 12/01/2024 [email or web address] Information not available 12/01/2024 Have You Recently Traveled Abroad? No [email or web address] Information not available 07/27/2022 Do You Have Difficulty Walking Or Climbing Stairs? No [email or web address] Information not available 07/27/2022 Sex: Unknown Functional Status Question Answer Note LastModified by Organizat ion Details LastModified Time Do you use any illicit or recreational drugs? No [email or web address] Information not available 05/05/2024 Do you or have you ever used any other forms of tobacco or nicotine? No [email or web address] Information not available 05/05/2024 What is your level of alcohol consumption? None [email or web address] Information not available 05/05/2024 Are you able to walk independently without assistance or assistive devices? YESWOREST [email or web address] Information not available 07/27/2022 Do you have difficulty doing errands alone? No [email or web address] Information not available 07/27/2022 Are you able to care for yourself independently? Yes [email or web address] Information not available 07/27/2022 Do you have difficulty dressing, bathing, grooming, or toileting? No [email or web address] Information not available 07/27/2022 Do you or have you ever used any nicotine-free cigarettes, vape, or chewing tobacco? No [email or web address] Information not available 05/05/2024 Mental Status Question Answer Note LastModified by Organization D etails LastModified Time Do you have difficulty concentrating, remembering or making decisions? No [email or web address] Information no t available 07/27/2022 Family History Relationship Description Onset Age of this Age Resolved Age Notes LastModified by Organization Details LastModified Time Brother Malignant neoplasm of prostate [email or web address] Not available 2024 08:22:49 Brother Diabetes mellitus [email or web address] Not available 05/05 09:42:49 Father Neoplasm of brain [email or web address] Not available 2024 08:23:10 Sister Malignant neoplasm of gallbladder [email or web address] Not available 09:42:29 Sister Diabetes mellitus [email or web address] Not available 05/05 09:42:49 Medical History No medical history recorded. Immunizations Vaccine Type Date Status Note Provider Nam e and Address Organization Details Recorded Time COVID-19, mRNA, LNP-S, PF, 30 mcg/0.3 mL dose completed JAREN costello [facility] 05/05/2024 09:20:36 COVID-19, mRNA, LNP-S, PF, 30 mcg/0.3 mL dose 1 completed JAREN costello, [facility] 05/05/2024 09:20:36 COVID-19, mRNA, LNP-S, PF, 30 mcg/0.3 mL dose 2 completed JAREN costello, [facility] 05/05/2024 09:20:36 COVID-19, mRNA, LNP-S, PF, 30 mcg/0.3 mL dose 1 completed JAREN costello, [facility] 05/05/2024 09:20:36 COVID-19, mRNA, LNP-S, bivalent, PF, 30 mcg/0.3 mL dose 2 completed JAREN costello, [facility] 05/05/2024 09:20:36 Tdap 2 completed JAREN costello, [facility] 05/05/2024 09:20:36 Tdap 0 completed JAERN costello, [facility] 05/05/2024 09:20:36 Influenza, high-dose, trivalent, PF 9 completed JAREN costello, [facility] 05/05/2024 09:20:36 Influenza, split virus, trivalent, preservative 2 completed JAREN costello, [facility] 05/05/2024 09:20:36 Influenza, split virus, trivalent, preservative 1 completed JAREN costello, [facility] 05/05/2024 09:20:36 zoster recombinant 4 completed JAREN costello, [facility] 05/05/2024 09:36:09 zoster recombinant 4 completed JAREN costello, [facility] 05/05/2024 09:36:09 COVID-19, mRNA, LNP-S, PF, liang-sucrose, 30 mcg/0.3 mL 4 completed JAREN costello, [facility] 05/05/2024 09:36:09 Influenza, split virus, trivalent, preservative 3 completed JAREN costello, [facility] 05/05/2024 09:36:09 Influenza, adjuvanted, trivalent, PF 4 completed Not Available [facility] 01/24/2025 08:26:50 COVID-19, mRNA, LNP-S, PF, 50 mcg/0.5 mL 4 completed Not Available [facility] 01/24/2025 08:26:50 Influenza, high-dose, trivalent, PF 5 completed Not Available [facility] 01/24/2025 08:26:50 COVID-19, mRNA, LNP-S, PF, 10 mcg/0.2 mL 5 completed Not Available [facility] 01/24/2025 08:26:50 Pneumococcal Conjugate, unspecified formulation 3 completed Not Available [facility] 09/12/2022 02:18:55 Td(adult) unspecified formulation 3 completed Not Available [facility] 09/12/2022 02:18:55 Past Encounters Encounter ID Performer Location Encounter Start Date Encounter Closed Date Diagnosis/Indication Diagnosis SNOMED-CT Code Diagnosis ICD10 Code Diagnosis IMO Codes Diagnosis Note [id number] EDITH RHODES APRN [facility] ([facility]) [address] [place] [address] 12/01/2024 11:00:52 12/01/2024 19:02:21 Diarrhea 56868733 R19.7 [id number] Viral disease 07540386 B 34.9 82758 [id number] Sandra Stallworth MD [facility] ([facility]) [address] [place] [address] 12/26/2024 16:23:10 12/27/2024 09:32:28 Long-term current use of drug therapy 115599925 Z79.874 [id number] Health Concerns Section Related Observation LastModified by Organization Detai ls LastModified Time None Recorded Concern Status LastModified by Organization Details LastModified Time None Recorded Payers Encounter Date Sequence Insurance Name Policy Number Policy Robledo Covered Member ID Robledo Member ID Guarantor Name 12/26/2024 1 [place] Jhonatan Lewis [id number] Jhonatan Lewis 12/26/2024 2 [employer] (MEDICARE SUPPLEMENT) Jhonatan Lewis [id number] Jhonatan Lewis
--- OUTSIDE RECORDS SUMMARY | 2025-02-07 14:07 | XMS_ITS | Clinical Summary ---
Author Organization [facility] Mike sanon Ronni Address [address] [place] [address] Phone Care Team Providers Care Visitor Services Specialist Name Role Phone True Bean Primary Care Provide r Allergies Active Allergy Reactions Criticality Noted Date Comments Amoxicillin Hives High 03/09/2008 Cephalexin Rash,Itching High 06/16/2010 Medications TYLENOL ARTHRITIS PO Take by mouth. 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 Gender Identity Not on file Sexual Orientation Not on file Last Filed Vital Signs Vital Sign Reading Time Taken Comments Blood Pressure 124/86 04/24/2020 12:36 PM CORROSION CONTROL FITTER Pulse 69 04/24/2020 12:36 PM CORROSION CONTROL FITTER Temperature 36.8 C (98.2 F) 03/20/2014 12:52 PM CORROSION CONTROL FITTER Respiratory Rate - - Oxygen Saturation 96% 04/24/2020 12:36 PM CORROSION CONTROL FITTER Inhaled Oxygen Concentration - - Weight 111.6 kg (246 lb) 04/24/2020 12:36 PM CORROSION CONTROL FITTER Height 190.5 cm (6' 3 ) 04/24/2020 12:36 PM CORROSION CONTROL FITTER Body Mass Index 30.75 04/24/2020 12:36 PM CORROSION CONTROL FITTER Plan of Treatment Health Maintenance Due Date Last Done Comments PNEUMOCOCCAL VACCINE 50+ YEA RS (1 of 1 - PCV) 1998 ZOSTER VACCINE (1 of 2) 1998 DTAP/TDAP/TD VACCINES (2 - Td or Tdap) 07/18/2019 RSV VACCINE (60+ or ) (1 - 1-dose 75+ series) 11/11/2023 INFLUENZA VACCINE (#1) 2024 11/23/2012, 2009 COVID-19 Vaccine (3 - 2024- season) 2024, 03/15/2020 Insurance [id number] [place] [address] MEDICARE PART A AND B [employer] [facility] [place] [address] Care Teams Visitor Services Specialist Relationship Specialty Start Date End Date True Bean DO [address] [address] PCP - General Internal Medicine 03/19/15
--- OUTSIDE RECORDS SUMMARY | 2025-02-07 14:07 | XMS_ITS | Encounter Summary ---
Author Organization [facility] Address [address] [place] [address] Care Team Providers Care Ditch Tender Name Role Phone True Bean DO Primary Care Provide r Encounter Details Date Type Department Care Team (Late st Contact Info) Description 01/17/2004 Outpatient Historical [facility] Rheumatology- [facility] [place] [address] [place] [address] Arnel Pittman DO [address] [facility] [address] [place] [address] RHEUMATOID ARTHRITIS (CMS/[facility]) (Primary Dx); SYNOVITIS NOS; AFTERCARE FDC USE MEDICATN Social History Tobacco Use Types Packs/Day Years Used Date Smoking Tobacco: Never Assessed Sex and Gender Information Value Date Recorded Sex Assigned at Not on file 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
--- OUTSIDE RECORDS SUMMARY | 2025-02-07 14:07 | XMS_ITS | Encounter Summary ---
Author Organization [facility] Address [address] [place] [address] Care Team Providers Care Director Of Collections And Archives Name Role Phone True Bean DO Primary Care Provide r Encounter Details Date Type Department Care Team (Late st Contact Info) Description 03/07/2007 Outpatient Historical [facility] Rheumatology- [facility] [place] [address] [place] [address] Arnel Pittman DO [address] [facility] [address] [place] [address] Social History Tobacco Use Types Packs/Day Years Used Date Smoking Tobacco: Never Assessed Sex and Gender Information Value Date Recorded Sex Assigned at Not on file 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
--- OUTSIDE RECORDS SUMMARY | 2025-02-07 14:07 | XMS_ITS | Encounter Summary ---
Author Organization [facility] Address [address] [place] [address] Care Team Providers Care Wire Border Assembler Name Role Phone True Bean DO Primary Care Provide r Encounter Details Date Type Department Care Team (Late st Contact Info) Description 02/23/2005 Outpatient Historical [facility] Rheumatology- [facility] [place] [address] [place] [address] Arnel Pittman DO [address] [facility] [address] [place] [address] RHEUMATOID ARTHRITIS (CMS/[facility]) (Primary Dx) Social History Tobacco Use Types Packs/Day Years Used Date Smoking Tobacco: Never Assessed Sex and Gender Information Value Date Recorded Sex Assigned at Not on file 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
--- OUTSIDE RECORDS SUMMARY | 2025-02-07 14:07 | XMS_ITS | Encounter Summary ---
Author Organization [facility] Address [address] [place] [address] Care Team Providers Care Cook Taco Name Role Phone True Bean DO Primary Care Provide r Encounter Details Date Type Department Care Team (Late st Contact Info) Description 08/14/2004 Outpatient Historical [facility] Rheumatology- [facility] [place] [address] [place] [address] Arnel Pittman DO [address] [facility] [address] [place] [address] RHEUMATOID ARTHRITIS (CMS/[facility]) (Primary Dx); AFTERCARE RECONCILING CLERK USE MEDICATN Social History Tobacco Use Types Packs/Day Years Used Date Smoking Tobacco: Never Assessed Sex and Gender Information Value Date Recorded Sex Assigned at Not on file 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
--- OUTSIDE RECORDS SUMMARY | 2025-02-07 14:07 | XMS_ITS | Encounter Summary ---
Author Organization [facility] Address [address] [place] [address] Care Team Providers Care Hand Candy Cutter Name Role Phone True Bean DO Primary Care Provide r Encounter Details Date Type Department Care Team (Late st Contact Info) Description 09/04/2003 Outpatient Historical [facility] Rheumatology- [facility] [place] [address] [place] [address] Arnel Pittman DO [address] [facility] [address] [place] [address] RHEUMATOID ARTHRITIS (CMS/FORMERLY [facility]) (Primary Dx) Social History Tobacco Use Types Packs/Day Years Used Date Smoking Tobacco: Never Assessed Sex and Gender Information Value Date Recorded Sex Assigned at Not on file 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
--- OUTSIDE RECORDS SUMMARY | 2025-02-07 14:07 | XMS_ITS | Encounter Summary ---
Author Organization [facility] Address [address] [place] [address] Care Team Providers Care Chicken Picker Name Role Phone True Bean DO Primary Care Provide r Encounter Details Date Type Department Care Team (Latest Contact Info) Description 03/03/2006 Outpatient Historical [facility] Rheumatology- Psychiatric [place] [address] [place] [address] Arnel Pittman DO [address] [facility] [address] [place] [address] Rheumatoid Arthritis ([facility]) (Primary Dx); Encounter for Long-Term (Current) Use of Other Medications; Screening Examination for Pulmonary Tuberculosis Social History Tobacco Use Types Packs/Day Years Used Date Smoking Tobacco: Never Assessed Sex and Gender Information Value Date Recorded Sex Assigned at Not on file 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 Gender Identity Not on file Sexual Orientation Not on file documented as of this encounter Plan of Treatment Not on file documented as of this encounter Visit Diagnoses Diagnosis Rheumatoid arthritis(714.0) ([facility])- Primary Rheumatoid arthritis Encounter for long-term (current) use of other medications Screening examination for pulmonary tuberculosis documented in this encounter Care Teams Chicken Picker Relationship Specialty Start Date End Date True Bena DO [address] [place] [id number] PCP - General Internal Medicine 03/19/15 documented as of this encounter
--- OUTSIDE RECORDS SUMMARY | 2025-02-07 14:07 | XMS_ITS | Encounter Summary ---
Author Organization [facility] Address [address] [place] [address] Care Team Providers Care Shipping Point Inspector Name Role Phone True Bean DO Primary Care Provide r Encounter Details Date Type Department Care Team (Late st Contact Info) Description 12/20/2003 Outpatient Historical [facility] Rheumatology- [facility] [place] [address] [place] [address] Arnel Pittman DO [address] [facility] [address] [place] [address] RHEUMATOID ARTHRITIS (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)- Primary Rheumatoid arthritis Pain in joint, multiple sites Effusion of hand joint Encounter for long-term (current) use of other medications documented in this encounter Care Teams Shipping Point Inspector Relationship Specialty Start Date End Date True Bean DO [address] [place] [id number] PCP - General Internal Medicine 03/19/15 documented as of this encounter
--- OUTSIDE RECORDS SUMMARY | 2025-02-07 14:07 | XMS_ITS | Patient Health Record ---
Author Organization [facility], [facility] Address [address] [place] [address] Care Team Providers Care Supervisor Twisting Department Name Role Phone Ernesto Stallworth MD Primary Care Provider Colby ARRIAGA ELIZABETH Unavailable [phone] Hira Lund Unavailable [phone] Allergies Allergen (clinical drug ingredient) Drug/Non Drug Allergy documented on EMR Reaction Allergy Type Onset Date Status amoxicillin Amoxicillin Unknown Drug Allergy Act shannon Results Component Value Reference Range Notes Urinalysis, Routine Reviewed date:12/11/2024 09:52:07 AM Interpretation: Performing Lab: Notes/Report: Urine-Color yellow Appearance clear Glucose - Bilirubin 1+ Ketones - Specific [place] 1.025 Occult Blood trace pH 6.0 Urine Protein trace Urobilinogen,Semi-Qn - Nitrite, Urine - WBC Esterase 1+ Urinalysis, Routine Reviewed date:05/25/2024 01:55:29 PM Interpretation: Performing Lab: Notes/Report: Urine-Color yellow Appearance clear Glucose - Bilirubin - Ketones - Specific [place] 1.015 Occult Blood 2+ pH 6.0 Urine Protein 1+ Urobilinogen,Semi-Qn - Nitrite, Urine - WBC Esterase 1+ Urinalysis, Routine Reviewed date:06/26/2024 03:19:04 PM Interpretation: Performing Lab: Notes/Report: Urine-Color yellow Appearance clear Glucose - Bilirubin - Ketones - Specific [place] 1.015 Occult Blood - pH 6.0 Urine Protein - Urobilinogen,Semi-Qn - Nitrite, Urine - WBC Esterase - Basic Metabolic Panel Reviewed date:07/14/2024 12:07:18 PM Interpretation: Performing Lab: Notes/Report: Use of this assay is not recommended for patients undergoing treatment with phenindione, due to the potential for falsely depressed results. Testing performed at: [address] [place] [address] CLIA ID [id number] Calculation performed from GFR calculator provided by the [employer]. Glomerular Filtration rate(GRF) is the best overall index of kidney function. Normal GFR varies according to age,sex, body size, and declines with age. The [employer] recommends using the CKD-EPI Creatinine Equation(2020) to estimate GFR. P-vxvhoo-p-benzoquinone imine (NAPQI) is a metabolite of acetaminophen, NAPQI concentrations of apparoximately 10 mg/L correlation to toxic levels of acetaminophen demonstrates a greater than or equil to 10% change in results. NAPQI concentrations greater than this may lead to falsely depressed results for patient samples. Testing performed at [facility], [address] [place] [address] [place] [address]. CLIA ID#: [id number] Sodium 140 136-145 MMOL/L Potassium 3.7 3.5-5.1 MMOL/L Chloride 106 98-107 MMOL/L CO2 26.0 20.0-31.0 MMOL/L Glucose Serum 87 71-110 MG/DL BUN 16 7-21 MG/DL Creat 1.15 .57-1.17 MG/DL GFR 66.4 Anion Gap 12 5-15 BUN/Creat Ratio 13.9 12.0-20.0 % Calcium 9.2 8.7-10.4 MG/DL Osmo Serum,Calculated 291 280-300 MOSM/KG Reason For Referral No Information Medications Medication SIG (Take, Route, Frequency, Duration) Notes Start Date End Date Status Enbrel 50 MG/ML 1 mL Subcutaneous Active Methotrexate 2.5 MG/ML as directed Orally Active Tamsulosin HCl 0.4 MG 1 capsule Orally twice daily; Duration: 90 days 06/05/2024 6 Active Triamcinolone Acetonide 0.1 % 1 application Externally Two times a Week Active Tylenol 8 Hour Arthritis Pain 650 MG 2 tablets as needed Orally every 8 hrs Active Folic Acid 800 MCG 1 tablet Orally Once a day 4 tabs a day Active prednisoLONE 20mg as needed Active prednisoLONE 2.5mg Not-Terrence ing Hydroxychloroquine Sulfate 200 MG as directed Orally Active Fish Oil 1000 MG 1 capsule Orally Three times a day Active Garlic 1000 MG as directed Orally Active Vitamin D3 50 MCG (1999) 1 capsule Orally Once a day Active Social History Tobacco Use: Social History Observation Description Date Details (start date - stop date) Never Smoker NA - NA Tobacco Control (Standard) Question Answer Notes Tobacco use: Nonsmoker AUDIT-C (Standard) Question Answer Notes Did you have a drink containing alcohol in the p ast year? No Points 0 Interpretation Negative Section Notes: former drinker non smoker denies drug use former drinker non smoker denies drug use ETOH from ages 16 - 53 non smoker denies drug use ETOH from ages 18 - 53 non smoker denies drug use Problems Problem Type SNOMED Code ICD Code Onset Dates Problem Status W/U Status Risk Notes Problem Lower urinary tract symptoms due to benign prostatic hypertrophy (65359622637600 ) Benign prostatic hyperplasia with lower urinary tract symptoms (N40.1) Active confirmed Problem Disorder of urinary bladder (04103002) Erythematous bladder mucosa (N32.89) Active confirmed Problem Benign prostatic hyperplasia (531700699) BPH (benign prostatic hyperplasia) (N40.0) Active confirmed Problem Nocturia (391412057) Nocturia more than twice per night (R35.1) Active confirmed Problem Family history of prostate cancer (006771507) Family history of prostate cancer (Z80.42) Active confirmed Problem Personal history of primary malignant neoplasm of urinary bladder (740210141) History of bladder cancer (Z85.51) Active confirmed Vital Signs Heart Rate 86 /min 12/11/2024 Blood pressure diastolic 63 mm Hg 12/11/2024 Height-cm 190.5 cm 12/11/2024 Weight-kg 106.6 kg 12/11/2024 Height 75 in 12/11/2024 Blood pressure systolic 107 mm Hg 12/11/2024 Weight 235 lbs 12/11/2024 BMI 29.37 kg/m2 12/11/2024 Procedures Procedure Date Ordered Date Performed Result Body Sit e Bladder Scan 05/25/2024 05/25/2024 301 mL Encounters Encounter Location Date Provider Diagnosis [facility], [facility] [address] [place] [address] 07/14/2024 ELIZABETH ARRIAGA [facility], [facility] [address] [place] [address] 05/25/2024 Hira Ashely Other specified disorders of bladder N32.89 ; BPH (benign prostatic hyperplasia) N40.0 ; Nocturia more than twice per night R35.1 ; Prostate cancer screening Z12.5 and Family history of prostate cancer Z80.42 [facility], [facility] [address] [place] [address] 06/26/2024 ELIZABETH CRUZER Erythematous bladder mucosa N32.89 ; BPH (benign prostatic hyperplasia) N40.0 ; Nocturia more than twice per night R35.1 and Family history of prostate cancer Z80.42 [facility], [facility] [address] [place] [address] 08/07/2024 ELIZABETH ARRIAGA Erythematous bladder mucosa N32.89 ; BPH (benign prostatic hyperplasia) N40.0 ; Nocturia more than twice per night R35.1 and Family history of prostate cancer Z80.42 [facility], [facility] [address] [place] [address] 12/11/2024 [facility] BPH (benign prostati c hyperplasia) N40.0 ; Erythematous bladder mucosa N32.89 ; Nocturia more than twice per night R35.1 ; Family history of prostate cancer Z80.42 and History of bladder cancer Z85.51 [facility], [facility] [address] [place] [address] 05/09/2024 [facility], [facility] [address] [place] [address] 06/05/2024 Hira Lund [facility], [facility] [address] [place] [address] 12/11/2024 ELIZABETH ARRIAGA Assessments Encounter Date Diagnosis (ICD Code) Assessment Notes Treatment Notes Treatment Clinical Notes Section Notes 05/25/2024 Other specified disorders of bladder (ICD-10 - N32.89) We discussed the concept of maximal medical management of BPH as well as possible treatment with a transurethral procedure. We discussed consideration of in office cystoscopy in near future give his bothersome LUTS and previous abnormal bladder findings. However, given his continued bothersome LUTS while failing conservative measures, we discussed setting up next available for cystoscopy. Continue flomax at this time, and discussed on taking flomax BID. He will trial this.. He does have an elevated PVR. Will call his PCP, and if no PSA has been completed, he will gain prior to next upcoming visit. He will then return for cystoscopy and further recommendations based on findings at this time. Discussed case with Dr. Arriaga. For now, and through shared decision making we are in agreement with no further workup or intervention at this time with care plan, aside from what was mentioned. No other voiced concerns or questions. Patient satisfied with plan.f 05/25/2024 BPH (benign prostatic hyperplasia) (ICD-10 - N40.0) We discussed the concept of maximal medical management of BPH as well as possible treatment with a transurethral procedure. We discussed consideration of in office cystoscopy in near future give his bothersome LUTS and previous abnormal bladder findings. However, given his continued bothersome LUTS while failing conservative measures, we discussed setting up next available for cystoscopy. Continue flomax at this time, and discussed on taking flomax BID. He will trial this.. He does have an elevated PVR. Will call his PCP, and if no PSA has been completed, he will gain prior to next upcoming visit. He will then return for cystoscopy and further recommendations based on findings at this time. Discussed case with Dr. Arriaga. For now, and through shared decision making we are in agreement with no further workup or intervention at this time with care plan, aside from what was mentioned. No other voiced concerns or questions. Patient satisfied with plan.f 06/26/2024 Erythematous bladder mucosa (ICD-10 - N32.89) 73 y/o M with BPH/LUTS. On Flomax BID. 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 Cysto findings reviewed. I recommend cysto with bladder biopsy and TURBT in the OR. How procedure is performed was reviewed along with risks, benefits, alternatives, and postprocedural expectations. All questions were sought and answered to pt satisfaction and pt is agreeable to proceed. Will schedule next available. Plan: schedule cysto with bladder biopsy and TURBT at [facility] continue flomax bid 06/26/2024 BPH (benign prostatic hyperplasia) (ICD-10 - N40.0) 73 y/o M with BPH/LUTS. On Flomax BID. 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 Cysto findings reviewed. I recommend cysto with bladder biopsy and TURBT in the OR. How procedure is performed was reviewed along with risks, benefits, alternatives, and postprocedural expectations. All questions were sought and answered to pt satisfaction and pt is agreeable to proceed. Will schedule next available. Plan: schedule cysto with bladder biopsy and TURBT at [facility] continue flomax bid 08/07/2024 Erythematous bladder mucosa (ICD-10 - N32.89) This is a 73-year-old male with history of rheumatoid arthritis presenting for follow-up after bladder biopsy showing atypical cells suspicious for malignancy. Pathology is concerning for possible urothelial carcinoma with glandular differentiation versus bladder adenocarcinoma, though definitive diagnosis is not established. Problem List: 1. Atypical cells of bladder, suspicious for malignancy - R85.614 2. Abnormal findings on diagnostic imaging of bladder - R93.41 3. Rheumatoid arthritis - M06.9 12/11/2024 Erythematous bladder mucosa (ICD-10 - N32.89) 74 yo male with h/o bladder cancer, BPH, nocturia. Surveilance cysto shows 2 areas of erythema at the dome in diverticuli. Cysto findings reviewed. Plan: send urine for Accupath cytology/Uro17/fis h RTC in 3 months for surveillance cysto 12/11/2024 BPH (benign prostatic hyperplasia) (ICD-10 - N40.0) 74 yo male with h/o bladder cancer, BPH, nocturia. Surveilance cysto shows 2 areas of erythema at the dome in diverticuli. Cysto findings reviewed. Plan: send urine for Accupath cytology/Uro17/fis h RTC in 3 months for surveillance cysto 12/11/2024 Nocturia more than twice per night (ICD-10 - R35.1) 74 yo male with h/o bladder cancer, BPH, nocturia. Surveilance cysto shows 2 areas of erythema at the dome in diverticuli. Cysto findings reviewed. Plan: send urine for Accupath cytology/Uro17/fis h RTC in 3 months for surveillance cysto 08/07/2024 BPH (benign prostatic hyperplasia) (ICD-10 - N40.0) This is a 73-year-old male with history of rheumatoid arthritis presenting for follow-up after bladder biopsy showing atypical cells suspicious for malignancy. Pathology is concerning for possible urothelial carcinoma with glandular differentiation versus bladder adenocarcinoma, though definitive diagnosis is not established. Problem List: 1. Atypical cells of bladder, suspicious for malignancy - R85.614 2. Abnormal findings on diagnostic imaging of bladder - R93.41 3. Rheumatoid arthritis - M06.9 06/26/2024 Nocturia more than twice per night (ICD-10 - R35.1) 73 y/o M with BPH/LUTS. On Flomax BID. 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 Cysto findings reviewed. I recommend cysto with bladder biopsy and TURBT in the OR. How procedure is performed was reviewed along with risks, benefits, alternatives, and postprocedural expectations. All questions were sought and answered to pt satisfaction and pt is agreeable to proceed. Will schedule next available. Plan: schedule cysto with bladder biopsy and TURBT at [facility] continue flomax bid 05/25/2024 Nocturia more than twice per night (ICD-10 - R35.1) We discussed the concept of maximal medical management of BPH as well as possible treatment with a transurethral procedure. We discussed consideration of in office cystoscopy in near future give his bothersome LUTS and previous abnormal bladder findings. However, given his continued bothersome LUTS while failing conservative measures, we discussed setting up next available for cystoscopy. Continue flomax at this time, and discussed on taking flomax BID. He will trial this.. He does have an elevated PVR. Will call his PCP, and if no PSA has been completed, he will gain prior to next upcoming visit. He will then return for cystoscopy and further recommendations based on findings at this time. Discussed case with Dr. Arriaga. For now, and through shared decision making we are in agreement with no further workup or intervention at this time with care plan, aside from what was mentioned. No other voiced concerns or questions. Patient satisfied with plan.f 06/26/2024 Family history of prostate cancer (ICD-10 - Z80.42) 73 y/o M with BPH/LUTS. On Flomax BID. 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 Cysto findings reviewed. I recommend cysto with bladder biopsy and TURBT in the OR. How procedure is performed was reviewed along with risks, benefits, alternatives, and postprocedural expectations. All questions were sought and answered to pt satisfaction and pt is agreeable to proceed. Will schedule next available. Plan: schedule cysto with bladder biopsy and TURBT at [facility] continue flomax bid 08/07/2024 Nocturia more than twice per night (ICD-10 - R35.1) This is a 73-year-old male with history of rheumatoid arthritis presenting for follow-up after bladder biopsy showing atypical cells suspicious for malignancy. Pathology is concerning for possible urothelial carcinoma with glandular differentiation versus bladder adenocarcinoma, though definitive diagnosis is not established. Problem List: 1. Atypical cells of bladder, suspicious for malignancy - R85.614 2. Abnormal findings on diagnostic imaging of bladder - R93.41 3. Rheumatoid arthritis - M06.9 12/11/2024 Family history of prostate cancer (ICD-10 - Z80.42) 74 yo male with h/o bladder cancer, BPH, nocturia. Surveilance cysto shows 2 areas of erythema at the dome in diverticuli. Cysto findings reviewed. Plan: send urine for Accupath cytology/Uro17/fis h RTC in 3 months for surveillance cysto 05/25/2024 Prostate cancer screening (ICD-10 - Z12.5) We discussed the concept of maximal medical management of BPH as well as possible treatment with a transurethral procedure. We discussed consideration of in office cystoscopy in near future give his bothersome LUTS and previous abnormal bladder findings. However, given his continued bothersome LUTS while failing conservative measures, we discussed setting up next available for cystoscopy. Continue flomax at this time, and discussed on taking flomax BID. He will trial this.. He does have an elevated PVR. Will call his PCP, and if no PSA has been completed, he will gain prior to next upcoming visit. He will then return for cystoscopy and further recommendations based on findings at this time. Discussed case with Dr. Arriaga. For now, and through shared decision making we are in agreement with no further workup or intervention at this time with care plan, aside from what was mentioned. No other voiced concerns or questions. Patient satisfied with plan.f 12/11/2024 History of bladder cancer (ICD-10 - Z85.51) 74 yo male with h/o bladder cancer, BPH, nocturia. Surveilance cysto shows 2 areas of erythema at the dome in diverticuli. Cysto findings reviewed. Plan: send urine for Accupath cytology/Uro17/fis h RTC in 3 months for surveillance cysto 08/07/2024 Family history of prostate cancer (ICD-10 - Z80.42) This is a 73-year-old male with history of rheumatoid arthritis presenting for follow-up after bladder biopsy showing atypical cells suspicious for malignancy. Pathology is concerning for possible urothelial carcinoma with glandular differentiation versus bladder adenocarcinoma, though definitive diagnosis is not established. Problem List: 1. Atypical cells of bladder, suspicious for malignancy - R85.614 2. Abnormal findings on diagnostic imaging of bladder - R93.41 3. Rheumatoid arthritis - M06.9 05/25/2024 Family history of prostate cancer (ICD-10 - Z80.42) We discussed the concept of maximal medical management of BPH as well as possible treatment with a transurethral procedure. We discussed consideration of in office cystoscopy in near future give his bothersome LUTS and previous abnormal bladder findings. However, given his continued bothersome LUTS while failing conservative measures, we discussed setting up next available for cystoscopy. Continue flomax at this time, and discussed on taking flomax BID. He will trial this.. He does have an elevated PVR. Will call his PCP, and if no PSA has been completed, he will gain prior to next upcoming visit. He will then return for cystoscopy and further recommendations based on findings at this time. Discussed case with Dr. Arriaga. For now, and through shared decision making we are in agreement with no further workup or intervention at this time with care plan, aside from what was mentioned. No other voiced concerns or questions. Patient satisfied with plan.f 08/07/2024 Other # Bladder lesion suspicious for malignancy Follow-up cystoscopy in 4 months to reassess the biopsied area after healing. This timing allows for adequate healing while maintaining appropriate surveillance. The lesion is located in a high-risk area at the dome of the bladder where tissue is thin, making aggressive biopsy risky due to potential for bladder perforation into the peritoneal cavity. If follow-up cystoscopy shows concerning findings, will consider additional sampling for definitive diagnosis. If cystoscopy shows normal healing with no concerning features, will continue with periodic surveillance cystoscopies. # Rheumatoid Arthritis Continue current management. RA unlikely to be related to bladder findings. Today we discussed your bladder biopsy results from July 14. The results show some unusual cells that could be cancer, but we cannot say for sure yet. The area of concern is at the top of your bladder where the tissue is thin. This makes it risky to do another deep biopsy right now. Plan: - You will need a follow-up scope procedure in 4 months (November 2024) - This will let us check how the area is healing - If everything looks normal, we will continue regular check-ups - If we see anything concerning, we may need to take more samples Your rheumatoid arthritis is likely not related to these bladder findings. Call our office if you have any blood in your urine, pain with urination, or other new symptoms before your next appointment. This is a 73-year-old male with history of rheumatoid arthritis presenting for follow-up after bladder biopsy showing atypical cells suspicious for malignancy. Pathology is concerning for possible urothelial carcinoma with glandular differentiation versus bladder adenocarcinoma, though definitive diagnosis is not established. Problem List: 1. Atypical cells of bladder, suspicious for malignancy - R85.614 2. Abnormal findings on diagnostic imaging of bladder - R93.41 3. Rheumatoid arthritis - M06.9 Plan Of Treatment Pending Test Test Name Order Date PSA-Diagnostic 05/25/2024 Next Appt Details Provider Name:ELIZABETH Deng, 03/12/2025 01:10:00 PM, [address] [place], [id number], Insurance Providers Payer Name Payer Address Payer Phone Subscriber Number Group Number Insured Name Patient Relationship to Insured Coverage Start Date Coverage End Date [place] [address] [address] [place], [place] [id number] Jhonatan Lewis Self - patient is the insured [employer] [address] [address] [place], [place] [id number] Jhonatan Lewis Self - patient is the insured Medical (General) History Medical History History ICD Code arthritis microscopic hematuria difficulty urinating waking at night to urinate urine starts and stops Surgical History Surgery Date(Month/Year) right knee replacement left knee replacement right middle lung lobe cysto with bladder biopsy and fulguratio n 07/14/24 Hospitalization History Reason Date(Month/Year) see sx
--- OUTSIDE RECORDS SUMMARY | 2025-02-07 14:08 | XMS_ITS | Data Portability ---
Author Organization HAILEY Lara [facility], DUNIA [facility] Address [address] [address] Care Team Providers Care Flight Operations Dispatch Clerk Name Role Phone STALLWORTHSANDRA Castillo Primary Care Provider [phone] ELAINE KAUFMAN Referring Provider [phone] Assessment No assessment recorded. Plan of Treatment Reminders Order Date Submit Date Provider Last Modified By Organization Details Last Modified Time Details Appointments None recorded. Lab CBC 2024 025 [facility], [address] [place] [address], [address], 5 16:43:37 C-reactiv e protein, quantitat shannon, serum or plasma 2024 025 [facility], [address] [facility], [place], [address], 5 04:58:31 creatinin e, blood 2024 025 [email or web address] [facility] ([facility]), [address] [place], [address], 5 16:25:27 ESR (erythroc yte sedimenta tion rate), blood 2024 025 [facility] ([facility]), [address] [place], [address], 17:41:04 hepatic function panel, serum 2024 [facility], [address] [facility], [facility] [address], [address], 17:32:09 CBC 2024 [facility], [address] [facility], [facility] [address], [address], 16:52:00 ESR (erythroc yte sedimenta tion rate), blood 2024 [facility] ([facility]), [address] [place] [address], [address], 16:19:46 C-reactiv e protein, quantitat shannon, serum or plasma 2024 [place] [employer] [facility], [address] [place], [address], 07:01:56 hepatic function panel, serum 2024 [facility], [address] [facility], [facility] [address], [address], 17:07:43 creatinin e, blood 2024 [facility] ([facility]), [address] [place] [address], [address], 5 17:10:52 Referral None recorded. Procedures polysomno graphy, titration study (PROC) [address] [facility], [address] [place] [address], [facility] [address], [address], 09:27:45 Surgeries None recorded. Imaging None recorded. Medication Orders None recorded. Patient TargetsNo targets recorded. Patient Instructions Encounter Date Encounter Id Patient Instructions Last Modified By Organization Details Last Modified Time 12/01/2024 [id number] Discussion on advancing diet with BRAT diet and fluids as tolerated [email or web address] Not available 12/01/2024 12:09:58 Reason for Referral None Reported. Results Created Date Observation Date Name Description Value Unit Range Abnormal Flag Note LastModifiedBy Organization Detail LastModifiedTime 10/03/1910/02/2024 CBC WBC 6.6 x10 4.5-10 .5 Not Available [facility] [address] [facility], [place], [address], 10/02/2024 16:52:00 10/03/1910/02/2024 CBC RBC 4.13 x10 4.30-5 .90 low Not Available [facility] [address] [place] [address], [place], [address], 10/02/2024 16:52:00 10/03/1910/02/2024 CBC HGB 13.5 g/dL 13.5-1 8.0 Not Available [facility] [address] [place] [address], [place], [address], 10/02/2024 16:52:00 10/03/1910/02/2024 CBC HCT 41.7 % 35.0-6 0.0 Not Available [facility] [address] [place] [address] [facility], [place], [address], 10/02/2024 16:52:00 10/03/1910/02/2024 CBC MCV 100.9 fL 80.0-9 9.9 high Not Available [facility] [address] [place] [address], [place], [address], 10/02/2024 16:52:00 10/03/1910/02/2024 CBC MCH 32.7 pg 27.0-3 2.0 high Not Available [facility] [address] [facility], [place], [address], 10/02/2024 16:52:00 10/03/1910/02/2024 CBC MCHC 32.4 g/dL 32.0-3 6.0 Not Available [facility] [address] [place] [facility], [place], [address], 10/02/2024 16:52:00 10/03/1910/02/2024 CBC RDW 13.2 % 11.5-1 4.5 Not Available [facility] [address] [facility] Shandra [facility], [place], [address], 10/02/2024 16:52:00 10/03/1910/02/2024 CBC plt 174.2 x10 150.0- 451.0 Not Available [facility] [address] [facility], [place], [address], 10/02/2024 16:52:00 10/03/1910/02/2024 CBC lymphocytes % 15.2 % 20.0-5 0.0 low Not Available [facility] [address] [place] [facility], [place], [address], 10/02/2024 16:52:00 10/03/1910/02/2024 CBC granulcytes % 73.0 % 30.0-7 0.0 high Not Available [facility] [address] [facility] Shandra [facility], [place], [address], 10/02/2024 16:52:00 10/03/1910/02/2024 CBC monocytes % 10.6 % 2.0-16 .0 Not Available [facility] [address] [facility] Shandra [facility], [place], [address], 10/02/2024 16:52:00 08/18/20 25 10/02/2024 CBC granulcytes# 4.8 x10 Not Breana ilable [facility] [address] [facility], [place], [address], 10/02/2024 16:52:00 10/03/1910/02/2024 CBC lymphocytes # 1.0 x10 Not Available [facility] [address] [place] [address] [facility], [place], [address], 10/02/2024 16:52:00 10/03/19 25 10/02/2024 CBC monocytes # 0.7 x10 Not Avai lable [facility] [address] [place] [address] [facility], [place], [address], 10/02/2024 16:52:00 10/03/19 25 10/02/2024 LIVER PANEL (MALE ) total protein 7.4 g/dL 6.0-8. 5 Not Available [facility] [address] [place] [facility], [place], [address], 10/02/2024 17:07:42 10/03/19 25 10/02/2024 LIVER PANEL (MALE ) total bilirubin 0.8 mg/dL 0.2-1. 3 Not Available [facility] [address] [place] [facility], [place], [address], 10/02/2024 17:07:42 10/03/19 25 10/02/2024 LIVER PANEL (MALE ) conj. bilirubin (direct) 0.00 mg/dL 0.00-0 .40 Not Available [facility] [address] [place] [address] [facility], [place], [address], 10/02/2024 17:07:42 10/03/19 25 10/02/2024 LIVER PANEL (MALE ) albumin 4.1 g/dL 3.5-5. 5 Not Available [facility] [address] [place] [address] [facility], [place], [address], 10/02/2024 17:07:42 10/03/19 25 10/02/2024 LIVER PANEL (MALE ) AST (SGOT) 30.0 U/L 0.0-46 .0 Not Available [facility] [address] [facility], [place], [address], 10/02/2024 17:07:42 10/03/19 25 10/02/2024 LIVER PANEL (MALE ) altv (SGPT) 18.0 U/L 13.0-6 9.0 normal Not Available [facility] [address] [facility], [place], [address], 10/02/2024 17:07:42 10/03/19 25 10/02/2024 LIVER PANEL (MALE ) ALP phos 88.0 U/L 30.0-1 40.0 normal Not Available [facility] [address] [facility], [place], [address], 10/02/2024 17:07:42 10/03/19 25 10/03/2024 C-ABDIEL CTIVE PROTE IN C-reactive protein 3.5 mg/L <8.0 normal Not Available [facility] [address] [place], [address], 10/03/2024 07:01:56 10/04/1910/03/2024 creat inine , blood creatinine 1.29 mg/dL 0.4-1. 5 normal Not Available [facility] ([facility]) [address] [place] [address], [address], 10/02/2024 16:13:12 10/04/19 25 10/03/2024 ESR (eryt hrocy te sedim entat ion rate) , blood SedRate 28 Not Available [facility] ([facility]) [address] [place] [address], [address], 10/02/2024 16:12:12 12/27/19 25 12/26/2024 CBC WBC 6.1 x10 4.5-10 .5 Not Available [facility] [address] Dev[address] [facility], [place], [address], 12/26/2024 16:43:37 12/27/19 25 12/26/2024 CBC RBC 4.24 x10 4.30-5 .90 low Not Available [facility] [address] [facility], [place], [address], 12/26/2024 16:43:37 12/27/19 25 12/26/2024 CBC HGB 14.0 g/dL 13.5-1 8.0 Not Available [facility] [address] [facility], [place], [address], 12/26/2024 16:43:37 12/27/19 25 12/26/2024 CBC HCT 43.1 % 35.0-6 0.0 Not Available [facility] [address] [facility], [place], [address], 12/26/2024 16:43:37 12/27/19 25 12/26/2024 CBC MCV 101.6 fL 80.0-9 9.9 high Not Available [facility] [address] [facility], [place], [address], 12/26/2024 16:43:37 12/27/19 25 12/26/2024 CBC MCH 33.1 pg 27.0-3 2.0 high Not Available [facility] [address] [facility], [place], [address], 12/26/2024 16:43:37 12/27/19 25 12/26/2024 CBC MCHC 32.5 g/dL 32.0-3 6.0 Not Available [facility] [address] [facility], [place], [address], 12/26/2024 16:43:37 12/27/19 25 12/26/2024 CBC RDW 13.7 % 11.5-1 4.5 Not Available [facility] [address] [facility], [place], [address], 12/26/2024 16:43:37 12/27/19 25 12/26/2024 CBC plt 167.6 x10 150.0- 451.0 Not Available [facility] [address] [facility], [place], [address], 12/26/2024 16:43:37 12/27/19 25 12/26/2024 CBC lymphocytes % 22.6 % 20.0-5 0.0 Not Available [facility] [address] [place] [address] [place] [address], [place], [address], 12/26/2024 16:43:37 12/27/19 25 12/26/2024 CBC granulcytes % 62.6 % 30.0-7 0.0 Not Available [facility] [address] [place] Sh[address] [facility], [place], [address], 12/26/2024 16:43:37 12/27/19 25 12/26/2024 CBC monocytes % 11.4 % 2.0-16 .0 Not Available [facility] [address] [place] [address] [facility], [place], [address], 12/26/2024 16:43:37 12/27/19 25 12/26/2024 CBC granulcytes# 3.8 x10 Not Breana ilable [facility] [address] [place] [address] [facility], [place], [address], 12/26/2024 16:43:37 12/27/19 25 12/26/2024 CBC lymphocytes # 1.4 x10 Not Available [facility] [address] [place] [facility], [place], [address], 12/26/2024 16:43:37 12/27/19 25 12/26/2024 CBC monocytes # 0.7 x10 Not Avai lable [facility] [address] [facility], [place], [address], 12/26/2024 16:43:37 12/27/19 25 12/26/2024 LIVER PANEL (MALE ) total protein 7.0 g/dL 6.0-8. 5 Not Available [facility] [address] [facility], [place], [address], 12/26/2024 17:32:09 12/27/1912/26/2024 LIVER PANEL (MALE ) total bilirubin 0.8 mg/dL 0.2-1. 3 Not Available [facility] [address] [facility], [place], [address], 12/26/2024 17:32:09 12/27/1912/26/2024 LIVER PANEL (MALE ) conj. bilirubin (direct) 0.00 mg/dL 0.00-0 .40 Not Available [facility] [address] [facility], [place], [address], 12/26/2024 17:32:09 12/27/19 25 12/26/2024 LIVER PANEL (MALE ) albumin 3.8 g/dL 3.5-5. 5 Not Available [facility] [address] [facility], [place], [address], 12/26/2024 17:32:09 12/27/1912/26/2024 LIVER PANEL (MALE ) AST (SGOT) 30.0 U/L 0.0-46 .0 Not Available [facility] [address] [facility], [place], [address], 12/26/2024 17:32:09 12/27/19 25 12/26/2024 LIVER PANEL (MALE ) altv (SGPT) 23.0 U/L 13.0-6 9.0 normal Not Available [facility] [address] [facility], [place], [address], 12/26/2024 17:32:09 12/27/19 25 12/26/2024 LIVER PANEL (MALE ) ALP phos 83.0 U/L 30.0-1 40.0 normal Not Available [facility] [address] [facility], [place], [address], 12/26/2024 17:32:09 12/27/19 25 12/27/2024 C-ABDIEL CTIVE PROTE IN C-reactive protein 3.5 mg/L <8.0 normal Not Available [facility] [address] [place], [address], 12/27/2024 04:58:31 12/27/19 25 12/26/2024 ESR (eryt hrocy te sedim entat ion rate) , blood SedRate 30 Not Available [facility] ([facility]) [address] [place], [address], 12/26/2024 16:24:47 Result Notes None recorded. Problems Name Problem SNOMED Code Status Onset Date Resolution Date Notes Provider Name and Address Organization Details Recorded Time Rheumatoi d arthritis 27918664 Active 2022 JAREN costello [facility] 5 09:21:22 Hyperlipi demia 22873687 Active 2022 JAREN costello [facility] 5 09:21:31 Pain of bilateral knee joints 108097016357 104 Active 2024 Celsa costello [facility] 5 08:39:03 Gastroeso phageal reflux disease 219720216 Active 2024 Celsa Carr [facility] 5 08:39:27 Eczema 30190725 Completed 202405/05/2024 Celsa Carr [facility] 5 08:39:54 Obstructi ve sleep apnea syndrome 43795757 Active 2024 JAREN AMAYA [facility] 5 11:16:35 Idiopathi c acute pancreati tis 422292733 Active 2024 JAREN AMAYA [facility] 16:16:36 Problem Notes None recorded. Procedures Surgical History Date Name Laterality Status Provider Name and Address Organization Details Recorded Time total knee replacement completed [facility] 05/05/2024 09:43:43 lobectomy of lung completed [facility] 05/05/2024 09:45:01 Imaging Results None recorded. Procedure Notes None recorded. Medical Equipment None Reported. Allergies Allergen ID Allergen Name Allergen Category Reaction Reaction Severity Criticality Documentation Date Start Date Code Code System Note Provider Name and Address Organization Details Recorded Time 99987 penicilli n V potassium medicatio n Not available Not available Not available 09/12/2022 5 RxNorm Comme nt: Recor ded 03/02 3:35P M by Mari chapa RN, Offic e Visit ; Promo evangelina; Frankie trivedi ce: *; Reaso n: Drug aller gy; ; JAREN AMAYA [facility] 09:20:57 42890 Product containin g penicilli n (product) medicatio n hives Not available Not available 05/05/2024 14474 8003 SNOMED JAREN AMAYA [facility] 5 09:20:55 63423 amoxicill in medicatio n Not available Not available Not available 01/24/20252024 723 RxNorm Celsa Ayonobloch trang [facility], Ramakrishna 5 08:39:38 16701 cephalexi n medicatio n itching rash Not available Not available [facility] 01/24/20252010 2231 RxNorm Not Available [facility] - External Data Service - prod 5 [...] week 06/20 completed for arthriailyn s CS/sd; 65297; Recorded 05/29/19 22 8:51AM by Carmina Loyola (Terry henry through True Bean DO), Office Visit; Refill Quantity : 0; Not Available Not Available Not Available prednison e daily 05/05 completed 0; Recorded 03/02/19 3:36PM by Yvonne Carter RN, Office Visit; Not Available Not Available Not Available [facility]3 1000 mg daily 2018 active Not Available [...] mass index (BMI) Body weight Body temperature Oxygen saturation Heart rate Systolic And Diastolic Provider Name and Address Organization Details Last Updated DateTime 5 190.5 cm 29.2 kg/m2 140881. 61 g 97.5 [degF] 97 % 75 /min 122/70 mm[Hg] TONJA AUGUSTIN [facility] 5 10:31:44 Date Recorded Body height Body mass index (BMI) Body weight Respiratory rate Heart rate Oxygen saturation Body temperature Systolic And Diastolic Provider Name and Address Organization Details Last Updated DateTime 5 190.5 cm 29.1 kg/m2 736258. 02 g 20 /min 81 /min 99 % 98 [degF] 98/62 mm[Hg] BALBINA SETHI [facility] 5 11:39:26 Date Recorded Body height Body mass index (BMI) Body weight Body temperature Heart rate Oxygen saturation Systolic And Diastolic Provider Name and Address Organization Details Last Updated DateTime 5 190.5 cm 29.7 kg/m2 268673. 98 g 98 [degF] 76 /min 96 % 120/68 mm[Hg] Celsa Carr [facility] 5 08:41:05 Social History Question Answer Notes LastModified by Organizat ion Details LastModified Time Tobacco Smoking Status Never Smoker NEETA costello [facility] 07/27/2022 14:05:05 Are You Blind Or Do You Have Difficulty Seeing? No Information not available 07/27/2022 Are You Deaf Or Do You Have Serious Difficulty Hearing? No [email or web address] Information not available 07/27/2022 Have You Had Direct Contact, Or Contact During Intimacy, With Monkeypox Rash, Scabs, Or Body Fluids From A Person With Monkeypox? No [email or web address] Information not available 07/27/2022 What Was The Date Of Your Most Recent Tobacco Screening? 12/01/2024 [email or web address] Information not available 12/01/2024 Have You Recently Traveled Abroad? No [email or web address] Information not available 07/27/2022 Do You Have Difficulty Walking Or Climbing Stairs? No [email or web address] Information not available 07/27/2022 Sex: Unknown Functional Status Question Answer Note LastModified by Organizat ion Details LastModified Time Do you use any illicit or recreational drugs? No Information not available 05/05/2024 Do you or have you ever used any other forms of tobacco or nicotine? No [email or web address] Information not available 05/05/2024 What is your level of alcohol consumption? None [email or web address] Information not available 05/05/2024 Are you able to walk independently without assistance or assistive devices? YESWOREST [email or web address] Information not available 07/27/2022 Do you have difficulty doing errands alone? No [email or web address] Information not available 07/27/2022 Are you able to care for yourself independently? Yes [email or web address] Information not available 07/27/2022 Do you have difficulty dressing, bathing, grooming, or toileting? No Information not available 07/27/2022 Do you or have you ever used any nicotine-free cigarettes, vape, or chewing tobacco? No [email or web address] Information not available 05/05/2024 Mental Status Question Answer Note LastModified by Organization D etails LastModified Time Do you have difficulty concentrating, remembering or making decisions? No [email or web address] Information no t available 07/27/2022 Family History Relationship Description Onset Age of this Age Resolved Age Notes LastModified by Organization Details LastModified Time Brother Malignant neoplasm of prostate [email or web address] Not available 2024 08:22:49 Brother Diabetes mellitus Not available 05/05 09:42:49 Father Neoplasm of brain [email or web address] Not available 2024 08:23:10 Sister Malignant neoplasm of gallbladder [email or web address] Not available 09:42:29 Sister Diabetes mellitus Not available 05/05 09:42:49 Medical History No medical history recorded. Immunizations Vaccine Type Date Status Note Provider Nam e and Address Organization Details Recorded Time COVID-19, mRNA, LNP-S, PF, 30 mcg/0.3 mL dose 1 completed JAREN costello [facility] 05/05/2024 09:20:36 COVID-19, mRNA, LNP-S, PF, 30 mcg/0.3 mL dose 1 completed JAREN costello [facility] 05/05/2024 09:20:36 COVID-19, mRNA, LNP-S, PF, 30 mcg/0.3 mL dose 2 completed JAREN costello [facility] 05/05/2024 09:20:36 COVID-19, mRNA, LNP-S, PF, 30 mcg/0.3 mL dose 1 completed JAREN costello [facility] 05/05/2024 09:20:36 COVID-19, mRNA, LNP-S, bivalent, PF, 30 mcg/0.3 mL dose 2 completed JAREN costello [facility] 05/05/2024 09:20:36 Tdap 2 completed JAREN costello [facility] 05/05/2024 09:20:36 Tdap 0 completed JAREN costello [facility] 05/05/2024 09:20:36 Influenza, high-dose, trivalent, PF 9 completed JAREN AMAYA null, [facility] 05/05/2024 09:20:36 Influenza, split virus, trivalent, preservative 2 completed JAREN AMAYA null, [facility] 05/05/2024 09:20:36 Influenza, split virus, trivalent, preservative 1 completed JAREN AMAYA null, [facility] 05/05/2024 09:20:36 zoster recombinant 4 completed JAREN AMAYA null, [facility] 05/05/2024 09:36:09 zoster recombinant 4 completed JAREN AMAYA null, [facility] 05/05/2024 09:36:09 COVID-19, mRNA, LNP-S, PF, liang-sucrose, 30 mcg/0.3 mL 4 completed JAREN AMAYA null, [facility] 05/05/2024 09:36:09 Influenza, split virus, trivalent, preservative 3 completed JAREN AMAYA null, [facility] 05/05/2024 09:36:09 Influenza, adjuvanted, trivalent, PF 4 completed Not Available [facility] 01/24/2025 08:26:50 COVID-19, mRNA, LNP-S, PF, 50 mcg/0.5 mL 4 completed Not Available [facility] 01/24/2025 08:26:50 Influenza, high-dose, trivalent, PF 5 completed Not Available [facility] 01/24/2025 08:26:50 COVID-19, mRNA, LNP-S, PF, 10 mcg/0.2 mL 5 completed Not Available [facility] 01/24/2025 08:26:50 Pneumococcal Conjugate, unspecified formulation 3 completed Not Available [facility] 09/12/2022 02:18:55 Td(adult) unspecified formulation 3 completed Not Available [facility] 09/12/2022 02:18:55 Past Encounters Encounter ID Performer Location Encounter Start Date Encounter Closed Date Diagnosis/Indication Diagnosis SNOMED-CT Code Diagnosis ICD10 Code Diagnosis IMO Codes Diagnosis Note [id number] True Bean DO [facility]) [address] [place] [address] 5 07/27/2022 13:50:54 07/27/2022 20:27:49 Tremor 60249464 R25.1 Hyperglycemia 32186303 R 73.9 [id number] True Bean DO [facility]) [address] [place] [address] 5 03/18/2023 08:51:37 03/19/2023 12:51:21 Long-term current use of drug therapy 319846611 Z79.992 [id number] True Bean DO [facility]) [address] [place], [place] [address] 06/21/2023 15:18:54 06/21/2023 17:04:56 Rheumatoid arthritis 10366932 M05.79 Hyperlipidemia 18884644 E78.5 Lower urin norma tract symptoms due to benign prostatic hypertrophy 4615935521 9101 N40.1 [id number] True Bean DO [facility]) [address] [place] [address] 5 11/08/2023 14:59:59 11/09/2023 11:05:50 Rheumatoid arthritis 67806322 M05.79 Long-term drug therapy 722598261 Z79.975 [id number] True Bean DO [facility]) [address] [place], [place] [address] 01/17/2024 14:32:56 01/18/2024 13:25:08 Rheumatoid arthritis 94485905 M05.79 Long-term drug therapy 248748206 Z79.514 [id number] Carl Frances MD [facility] ([facility]) [address] [place] [id number] 03/23/2024 10:40:50 03/23/2024 13:17:48 Dysuria 36911791 R30.0 UA was obtained and it demonstrat ed small mount of blood. Will treat for infection. Acute urin norma tract infection 331625702 N39.0 [id number] Sandra Stallworth MD [facility] ([facility]) [address] [place] [phone] 05/05/2024 09:16:13 05/05/2024 13:17:48 Rheumatoid arthritis 37318986 M05.79 Hyperlipidemia 52809296 E78.5 Mass of ur inary bladder 735040020 N32.89 pathology unavailabl e on current EHR from previous bx. will request. Isolated thrombocytopenia 221036108 D69.6 d/w the pt found on last rheum blood test. has blood tests scheduled in two weeks or so. will add futher eval for that. Lower urin norma tract symptoms due to benign prostatic hypertrophy 8458247904 9101 N40.1 likely needs cystoscopy and urodynamic . i agree with his request to see urology. Excessive daytime sleepiness - normal night sleep 729836086 G47.[address] his reports he feels very sleepy during the day even if he gets a good night's rest.his witnesses apnea frequently in the patient and he snores loudly [id number] Sanrda Stallworth MD [facility] ([facility]) [address] [place] [id number] 05/16/2024 09:08:22 05/17/2024 12:43:20 Long-term drug therapy [id number] Z79.291 [id number] Sandra Stallworth MD [facility] ([facility]) [address] [place] [address] [phone] 5 06/19/2024 15:05:44 06/20/2024 13:27:27 Prostate specific antigen measurement [id number] Z12.5 [id number] MYLENE TESFAYE [facility] ([facility]) [address] [place] [address] [phone] 5 07/18/2024 09:29:18 07/19/2024 13:32:12 Pain in throat [id number] J02.9 [id number] Strep panel negative for infection. Acute cough [id number] R05.2 [id number] Suspect viral cause but with recent procedure on bladder will start on doxy.May use otc meds for symptom management . F/u if symptoms worsen. [id number] LEXI SOTOMAYOR [facility] ([facility]) [address] [place], [place] [phone] 07/20/2024 18:41:54 07/26/2024 09:26:17 Nasal congestion [id number] R09.81 [id number] JEAN PIERRE COLES [facility] ([facility]) [address] [place] [address] [phone] 07/23/2024 09:39:25 07/23/2024 18:36:39 Finding of finger [id number] L98.9 [id number] Continue doxycyclin e. Keep site clean and dry. Do no soak in water. Wash with antibacter ial soap and running water. Pat dry and apply cream as prescribed . Follow up with Dr Stallworth or return to walk in if no improvemen t in 3 days. [id number] Sandra Stallworth MD [facility] ([facility]) [address] [place] [address] [phone] 5 07/26/2024 14:02:16 07/26/2024 15:12:30 Blister [id number] R23.8 [id number] LEXI SOTOMAYOR [facility] ([facility]) [address] [place] [address] [phone] 09/12/2024 16:16:28 09/12/2024 17:30:30 Idiopathic acute pancreatitis [id number] K85.00 [id number] Pain has improved. [id number] Sandra Stallworth MD [facility] ([facility]) [address] [place] [address] [phone] 10/06/2024 10:20:03 10/09/2024 15:49:55 Obstructive sleep apnea syndrome [id number] G47.33 [id number] his cpap is effective in alleviatin g his daytime sleepiness . he has worked up to 5 hours/nigh t.he should continue sleep apnea therapy with cpap indefinite ly. Otalgia of left ear [id number] H92.02 [id number] Tenderness of skeletal muscle [id number] M79.12 [id number] heat stretching and massagef/u if no improvemen t [id number] Sandra Stallworth MD [facility] ([facility]) [address] [place] [address] [phone] 10/02/2024 16:11:27 10/03/2024 10:10:38 Long-term current use of drug therapy [id number] Z79.339 [id number] EDITH RHODES APRN [facility] ([facility]) [address] [place] [address] [phone] 5 12/01/2024 11:00:52 12/01/2024 19:02:21 Diarrhea [id number] R19.7 [id number] Viral disease [id number] B 34.9 [id number] Sandra Stallworth MD [facility] ([facility]) [address] [place] [address] [phone] 5 12/26/2024 16:23:10 12/27/2024 09:32:28 Long-term current use of drug therapy [id number] Z79.039 [id number] Sandra Stallworth MD [facility] ([facility]) [address] [place] [address] [phone] 01/24/2025 08:26:24 01/24/2025 14:15:48 Obstructive sleep apnea syndrome [id number] G47.33 [id number] his cpap is ineffectiv e in alleviatin [...] Member ID Robledo Member ID Guarantor Name 01/23/2025 [place] - MEDICARE-AL - PART A - [facility] (MEDICARE) Jhonatan Lewis [id number] Jhonatan R Tune 01/23/2025 2 [employer] (MEDICARE SUPPLEMENT) Jhonatan R Tune [id number] Jhonatan R Tune 03/23/2024 2 [facility] (MEDICARE SUPPLEMENT) Jhonatan R Tune [id number] Jhonatan R Tune 01/23/2025 1 MEDICARE B-[place]: [facility] Jhonatan R Tune [id number] Jhonatan R Tune Notes Date Note Type Note Provider Name and Address Organization Details Recorded Time 5 text/html Obstructive Sleep ApneaReported by PatientHPIFor timing, patient reportschronic. For context, patient reportsinconsistent sleep routine. Ear Pain Brief HPIReported by PatientHPIFor location, patient reportsleft. For severity, patient reportsno fever.ROS as noted in the HPI Sandra Stallworth MD [address] [place], [phone], [facility], [place]egan[place]. 10/06/2024 11:20:13 5 text/html Abdominal PainReported by PatientAbdominal PainFor quality, patient reportsaching. For associated symptoms, patient reportsnausea,diarrhea, anddecreased appetitebut reportsno fever,no blood in the [...] think that he has had fever EDITH RHODES APRN [address] [place], [phone], [facility], Ramakrishna 12/01/2024 18:50:50 5 text/html Obstructive Sleep ApneaReported by PatientHPIFor associated symptoms, patient reportsdaytime sleepinessbut reportsno morning headacheandnormal concentration. For timing, patient reportschronic. For alleviating factors, patient reportspositive airway pressure devices.Pt states he has been using a cpap machine for about 6 months now and states he is typically having 20-30 events per hour. He would like to discuss if his cpap settings should be adjusted. Sandra Stallworth MD [address] [place] [address], [phone], [facility] 01/24/2025 09:15:47
--- NOTE | 2025-02-07 14:16 | CTR_ITS ---
PROCEDURE INFORMATION: Exam: CT Temporal Bones With Contrast. Exam date and time: 02/07/2025 3:09 PM Age: 74 years old Clinical indication: Pain; Other: Left ear atraumatic otorrhagia, HX of cancer TECHNIQUE: Imaging protocol: Computed tomography of the temporal bones with contrast. Radiation optimization: All CT scans at this facility use at least one of these dose optimization techniques: automated exposure control; mA and/or kV adjustment per patient size (includes targeted exams where dose is matched to clinical indication); or iterative reconstruction. Contrast material: [id number]; Contrast volume: 100 ml; Contrast route: INTRAVENOUS (IV); COMPARISON: No relevant prior studies available. RADIATION DOSE METRICS: Total DLP (mGy-cm): 554 FINDINGS: RIGHT TEMPORAL BONE: External auditory canal: Unremarkable. Meso tympanum: There is no thickening or retraction of the tympanic membrane. Ossicular mineralization, development, and alignment are normal. There is no indication of otitis media or mastoiditis. No bone erosion is evident. Otic capsule: The vestibulocochlear apparatus are normal development. There is no indication of otosclerosis or hydrops. There is no bony dehiscence of the semicircular canals. IAC: There is no evidence of erosion of the internal auditory canal. There is good symmetry with the contralateral side. LEFT TEMPORAL BONE: External auditory canal: Unremarkable. Meso tympanum: There is no thickening or retraction of the tympanic membrane. Ossicular mineralization, development, and alignment are normal. There is no indication of otitis media or mastoiditis. No bone erosion is evident. Otic capsule: The vestibulocochlear apparatus are normal development. There is no indication of otosclerosis or hydrops. There is no bony dehiscence of the semicircular canals. IAC: There is no evidence of erosion of the internal auditory canal. There is good symmetry with the contralateral side. ADDITIONAL STRUCTURES: Nasopharynx and visible paranasal sinuses: Minimal mucoperiosteal hypertrophy identified anteriorly in the right ethmoid air cells.. Skull base: Normal. No visible fractures. Visible brain parenchyma: Unremarkable. CT/CT temporal bones w con [id number] IMPRESSION: Unremarkable temporal bone CT with the exception of some minimal right anterior ethmoid sinus inflammation. No etiology for the patient's otalgia is apparent.
--- NOTE | 2025-02-07 14:30 | W.ED.EAR ---
HPI - Ear Problem General: Chief complaint: Ear Stated complaint: L ear bleeding Time Seen by Provider: 02/07/25 14:08 Source: patient and old records reviewed Mode of arrival: ambulatory Limitations: no limitations History of Present Illness: This patient is a 74-year-old male presenting with bleeding from the left ear. Bleeding began this morning, he had used a Q-tip to clean his ear and noticed that 2 hours later he started to have been profuse bleeding coming out of the ear, initially stopped spontaneously. The patient later went golfing, and upon returning home this afternoon his noted recurrent bleeding from the left ear, described as fresh red blood. At time of ED evaluation, bleeding is controlled with clot visible in the external auditory canal. The patient reported an incident of difficulty visualizing the ear due to clot burden. He is denying ear pain, hearing loss, tinnitus, vertigo, headache, facial weakness, fever, or recent trauma. 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 He reports an episode of transient blurred vision in the left eye several days ago, which has since resolved. He denies current visual symptoms, focal neurological deficits, chest pain, or shortness of breath. No active bleeding noted at this time. Given atraumatic nature of the otorrhagia, recurrence, and prior history of external ear squamous cell carcinoma, further evaluation with CT imaging and lab work will be pursued. MD Complaint: other (ear bleeding) Location: left ear Duration: resolved Associated symptoms: Denies ear or mastoid pain, fever(s), headache(s) or neck pain Related Data Home Medications ?Medication ?Instructions ?Recorded ?Confirmed acetaminophen 650 mg 650 mg PO Q8H 03/28/19 01/02/25 tablet,extended release (Tylenol Arthritis Pain) garlic 1,000 mg capsule 1,000 mg PO DAILY 03/28/19 01/02/25 omega-3 fatty acids 1,000 mg 1,000 mg PO DAILY 03/28/19 01/02/25 capsule (Fish Oil Concentrate) triamcinolone acetonide 0.1 % 1 applic topical DAILY PRN Dry Skin 12/04/20 01/02/25 topical cream cholecalciferol (vitamin D3) 10 10 mcg PO DAILY 03/17/21 01/02/25 mcg (400 unit) capsule aspirin 81 mg tablet,delayed 81 mg PO DAILY 11/27/22 01/02/25 release folic acid 800 mcg tablet 3,200 mcg PO DAILY 12/14/22 01/02/25 prednisone 20 mg tablet 20 mg PO DAILY PRN joint pain flare 12/25/22 01/02/25 tamsulosin 0.4 mg capsule 0.4 mg PO BID 01/02/25 01/02/25 Previous Rx's ?Medication ?Instructions ?Recorded etanercept 50 mg/mL (1 mL) 50 mg SUBCUT Q7D #12 mL 01/02/25 subcutaneous pen injector (Enbrel SureClick) methotrexate sodium 2.5 mg tablet 5 mg (2 x 2.5 mg) PO DIRECTED 01/02/25 #30 tabs pantoprazole 40 mg tablet,delayed 40 mg PO DAILY #90 tabs 01/02/25 release prednisone 2.5 mg tablet 2.5 mg PO DAILY #90 tabs 01/02/25 hydroxychloroquine 200 mg tablet 200 mg PO BID #180 tabs 01/04/25 Allergies Allergy/AdvReac Type Severity Reaction Status Date / Time amoxicillin Allergy Unknown Rash,Unknow Verified 02/07/25 14:13 n Review of Systems General: Reports: 10 or more systems reviewed and unremarkable except in HPI and below Const: Denies: fever(s), chills or fatigue Eyes: Denies: change in vision ENMT: Reports: other (left ear bleeding); Denies: throat pain, ear or mastoid pain or nasal discharge Card: Denies: chest pain, palpitations, swelling of feet/ankles or lightheadedness Resp: Denies: dyspnea, productive cough or wheezing GI: Denies: abdominal pain, nausea, vomiting, diarrhea or constipation : Denies: flank pain, difficulty urinating, dysuria or urinary frequency Musc: Denies: neck pain, back pain or joint pain Skin/Breast: Denies: rash Neuro: Denies: headache(s), numbness in extremities or weakness in extremities PFSH ED PFSH: Medical History GERD (gastroesophageal reflux disease) 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 Father , AT AGE 36-BRAIN TUMOR No problems noted. Other Cancer Diabetes Hypertension Lung disease Suicide Denies family history of Rheumatoid arthritis Lupus CAD (coronary artery disease) Chronic kidney disease (CKD) Stroke Social History Smoking and tobacco/nicotine status: never used tobacco/nicotine Alcohol intake: never Substance/Drug Use: never Adopted: No Lives independently: No Household members: spouse Marital status: Current occupational status: retired Physical Exam Const: COMMON NORMALS: no acute distress, patient oriented x3 and no limitations GENERAL APPEARANCE: cooperative, comfortable and well developed ORIENTATION/CONSCIOUSNESS: Yes awake, Yes oriented to person, Yes oriented to place and Yes oriented to time HENMT: COMMON NORMALS: normocephalic, atraumatic and hearing grossly normal bilaterally HEAD & SCALP: normocephalic and atraumatic EXTERNAL AUDITORY CANAL: Abnormal EAC present EAC laterality: left Details: otic discharge Details: bloody (clotted) TYMPANIC MEMBRANE: unable to visualize TM (left) Eye: COMMON NORMALS: Equal, round and reactive pupils present, EOMs intact bilaterally and conjunctivae normal CONJUNCTIVA: Yes conjunctivae normal PUPIL: Yes Equal, round and reactive pupils present Neck/C-Spine: COMMON NORMALS: full ROM, supple and no JVD Resp: COMMON NORMALS: normal respiratory effort, No retractions, No use of accessory muscles and clear to auscultation bilaterally AUSCULTATION: clear to auscultation bilaterally Cardio: COMMON NORMALS: no JVD, regular rate, regular rhythm, No clicks present (Cardio), No murmurs present (Cardio) and No rub (Cardio) RATE: regular rate RHYTHM: regular rhythm Extremity: COMMON NORMALS: normal to inspection, full ROM and capillary refill normal Neuro: COMMON NORMALS: patient oriented x3, moves all extremities, no focal motor deficits and no sensory deficits noted SENSORIUM/ORIENTATION: Yes oriented to person, Yes oriented to place and Yes oriented to time Skin: COMMON NORMALS: no rashes or lesions noted GENERAL SKIN EXAM: no rashes or lesions noted Course Vital Signs: Vital signs: Vital Signs Temperature 98.2 F 02/07/25 14:05 Pulse Rate 87 02/07/25 14:05 Blood Pressure 150/84 02/07/25 14:05 Pulse Oximetry 94 02/07/25 14:05 Oxygen Delivery Me thod Room Air 02/07/25 14:05 MDM - Ear Medical Decision Making Patient 74-year-old male with history of external ear squamous cell carcinoma presenting with atraumatic left ear bleeding. Bleeding initially stopped spontaneously but recurred at home. On exam, ear canal contained clot with no active bleeding. CT temporal bone and laboratory studies were unremarkable. Given history of SCC, concern for early recurrent or superficial disease remains. Bleeding controlled in the ED with direct pressure. 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 Clot left in place to avoid disruption of potential friable tissue. Patient educated on warning signs and instructed not to manipulate or irrigate the ear. Patient agrees and all other questions and concerns addressed at this time. Lab Data 02/07/25 14:35 02/07/25 14:35 Radiology Impressions Temporal Bone CT 02/07/25 14:16 IMPRESSION: Unremarkable temporal bone CT with the exception of some minimal right anterior ethmoid sinus inflammation. No etiology for the patient's otalgia is apparent. Laboratory Results WBC 4.54 10^3/uL (3.29-11.43) 02/07/25 14:35 RBC 3.97 10^6/uL (3.85-5.65) 02/07/25 14:35 Hgb 12.60 g/dL (11.27-16.99) 02/07/25 14:35 Hct 39.2 % (37-53) 02/07/25 14:35 MCV 98.7 fl (82-101) 02/07/25 14:35 MCH 31.7 pg (27-33) 02/07/25 14:35 MCHC 32.1 g/dL (30-55) 02/07/25 14:35 RDW 13.1 % (12.1-15.1) 02/07/25 14:35 Plt Count 167 10^3/cmm (157-399) 02/07/25 14:35 MPV 9.2 fL (7.4-10.4) 02/07/25 14:35 Neut % (Auto) 58.6 % 02/07/25 14:35 Lymph % (Auto) 23.1 % 02/07/25 14:35 [place] % (Auto) 12.8 % 02/07/25 14:35 Eos % (Auto) 4.0 % 02/07/25 14:35 Baso % (Auto) 1.3 % 02/07/25 14:35 Neut # (Auto) 2.66 10^3/uL (1.8-7.7) 02/07/25 14:35 Lymph # (Auto) 1.1 10^3/uL (0.8-4.8) 02/07/25 14:35 [place] # (Auto) 0.6 10^3/uL (0.2-0.9) 02/07/25 14:35 Eos # (Auto) 0.2 10^3/uL (0.0-0.8) 02/07/25 14:35 Baso # (Auto) 0.1 10^3/uL (0.0-0.1) 02/07/25 14:35 Nucleated RBC % (auto) 0 % 02/07/25 14:35 Nucleated RBCs # 0.0 /100WBC 02/07/25 14:35 PT 13.40 SECONDS (12.1-14.9) 02/07/25 15:27 INR 0.96 (0.8-1.2) 02/07/25 15:27 APTT 27.2 SECONDS (23.9-36.7) 02/07/25 15:27 Sodium 140 mmol/L (136-145) 02/07/25 14:35 Potassium 4.3 mmol/L (3.5-5.1) 02/07/25 14:35 Chloride 106 mmol/L (98-107) 02/07/25 14:35 Carbon Dioxide 21 mmol/L (22-29) L 02/07/25 14:35 Anion Gap 17.3 (5-19) 02/07/25 14:35 BUN 17 mg/dL (8-23) 02/07/25 14:35 Creatinine 1.1 mg/dL (0.7-1.2) 02/07/25 14:35 GFR Calculation Not Reportable 02/07/25 14:35 Glucose 96 mg/dL (65-115) 02/07/25 14:35 Calculated Osmolality 291 mOsm/kg (285-295) 02/07/25 14:35 Calcium 9.0 mg/dL (8.5-10.5) 02/07/25 14:35 Total Bilirubin 0.6 mg/dL (0.15-1.2) 02/07/25 14:35 AST 27 U/L (0-40) 02/07/25 14:35 ALT 15 U/L (0-41) 02/07/25 14:35 Alkaline Phosphatase 90 U/L (40-130) 02/07/25 14:35 Total Protein 6.6 g/dL (6.6-8.7) 02/07/25 14:35 Albumin 3.6 g/dL (3.5-5.2) 02/07/25 14:35 Globulin 3.0 g/dL (1.3-4.6) 02/07/25 14:35 All radiology interpretation(s) finalized by discharge Discharge Plan Discharge Patient Disposition: Home Clinical Impression: Otorrhagia of left ear Condition: Stable Prescriptions: No Action cholecalciferol (vitamin D3) 10 mcg (400 unit) capsule 10 mcg PO DAILY omega-3 fatty acids [Fish Oil Concentrate] 1,000 mg capsule 1,000 mg PO DAILY garlic 1,000 mg capsule 1,000 mg PO DAILY acetaminophen [Tylenol Arthritis Pain] 650 mg tablet extended release 650 mg PO Q8H triamcinolone acetonide 0.1 % cream 1 applic topical DAILY PRN (Reason: Dry Skin) folic acid 800 mcg tablet 3,200 mcg PO DAILY Enbrel SureClick 50 mg/mL (1 mL) pen injector 50 mg SUBCUT Q7D Qty: 12 1RF methotrexate sodium 2.5 mg tablet 5 mg PO DIRECTED Qty: 30 1RF Rx Instructions: TAKE 2 TABLETS BY MOUTH EVERY 7 DAYS pantoprazole 40 mg tablet,delayed release (DR/EC) 40 mg PO DAILY Qty: 90 1RF Rx Instructions: TAKE 1 TABLET BY MOUTH EACH MORNING 30 MINUTES BEFORE MEAL DAILY prednisone 2.5 mg tablet 2.5 mg PO DAILY Qty: 90 1RF Rx Instructions: TAKE 1 TABLET BY MOUTH EVERY DAY aspirin 81 mg tablet,delayed release (DR/EC) 81 mg PO DAILY hydroxychloroquine 200 mg tablet 200 mg PO BID Qty: 180 1RF Rx Instructions: TAKE 1 TABLET BY MOUTH TWICE A DAY prednisone 20 mg tablet 20 mg PO DAILY PRN (Reason: joint pain flare) Rx Instructions: take 1 tab daily for 3-7 days as needed for arthritis flare PO PRN; tamsulosin 0.4 mg capsule 0.4 mg PO BID Discharge Orders: Discharge ED (Routine); Ordered 02/07/25 Ordered By: Germain Wright Referrals: Ernesto Stallworth MD [Primary Care Provider, Family Practice] Patient Instructions: Patient Portal & Corey Instructions Activity Restrictions/Additional Instructions: Discharge Instructions: Left Ear Bleeding (Otorrhagia) DIAGNOSIS: Left ear bleeding (otorrhagia), now resolved SUMMARY OF YOUR VISIT: You came to the emergency department today with bleeding from your left ear. The bleeding has now stopped and formed a clot. We performed a CT scan of your ear and skull bones, which showed no abnormalities. Your blood tests, including blood counts and clotting studies, were all normal. You will need to follow up with an Ear, Nose, and Throat (ENT) specialist for further evaluation to determine the cause of the bleeding. HOME CARE INSTRUCTIONS: Keep Your Ear Dry: - Do NOT put anything in your ear, including cotton swabs, tissues, or fingers - Avoid getting water in your ear when showering or washing your hair - you may place a cotton ball coated with petroleum jelly (Vaseline) gently in the outer ear opening during showers - Do not swim or submerge your head in water until cleared by the ENT specialist - Avoid using headphones or earbuds in the affected ear If Bleeding Recurs: - Sit upright and tilt your head slightly forward - Do NOT pack anything into the ear canal - Apply gentle pressure by pressing on the small flap of cartilage in front of your ear opening (tragus) for 5-10 minutes - If bleeding does not stop after 10-15 minutes of gentle pressure, return to the emergency department General Precautions: - Avoid nose blowing, straining, heavy lifting (over 10-15 pounds), or bending over for the next 48 hours - Do not take aspirin, ibuprofen (Advil, Motrin), or naproxen (Aleve) unless specifically instructed by your doctor - these can increase bleeding risk - You may take acetaminophen (Tylenol) for pain or discomfort as directed on the package - Sleep with your head elevated on 2-3 pillows for the next few nights FOLLOW-UP CARE: ENT Specialist Appointment: You need to see an ENT (Ear, Nose, and Throat) specialist within 3-5 business days. This is important to determine the cause of your ear bleeding and ensure there are no underlying problems that need treatment. RETURN TO THE EMERGENCY DEPARTMENT IMMEDIATELY IF YOU EXPERIENCE: - Recurrent bleeding from the ear that does not stop with gentle pressure after 10-15 minutes - Clear or watery fluid draining from your ear (this could indicate spinal fluid leak) - Severe ear pain or headache - Fever over 100.4?F (38?C) - Dizziness, loss of balance, or difficulty walking - Sudden hearing loss or significant worsening of hearing - Facial weakness or drooping on either side - Confusion, difficulty speaking, or vision changes - Swelling, redness, or warmth around the ear - Neck stiffness or severe headache - Any bleeding from other sites (nose, gums, bruising) MEDICATIONS: No new medications are being prescribed at this time. Continue taking your regular medications as prescribed. ACTIVITY: You may resume normal daily activities but avoid strenuous exercise, heavy lifting, or activities that could cause trauma to the ear for the next 48-72 hours. QUESTIONS? If you have questions or concerns before your ENT appointment, you may call your primary care physician or return to the emergency department if you experience any of the warning signs listed above. Print Language: Czech Coding Level of Care Code ED Marketing Outreach Coordinator for [employer]
[2025-02-07 14:43] LABS: Hematocrit 39.2 % (37-53); Hemoglobin 12.60 g/dL (11.27-16.99); Mean Corpuscular HGB Conc 32.1 g/dL (30-55); Mean Corpuscular Hemoglobin 31.7 pg (27-33); Mean Corpuscular Volume 98.7 fl (82-101); Nucleated Red Blood Cells % 0 %; Platelet Count 167 10^3/cmm (157-399); Red Blood Count 3.97 10^6/uL (3.85-5.65); White Blood Count 4.54 10^3/uL (3.29-11.43)
[2025-02-07 15:01] LABS: Alanine Aminotransferase 15 U/L (0-41); Albumin Level 3.6 g/dL (3.5-5.2); Alkaline Phosphatase 90 U/L (40-130); Anion Gap 17.3 (5-19); Aspartate Amino Transferase 27 U/L (0-40); Blood Urea Nitrogen 17 mg/dL (8-23); Calcium 9.0 mg/dL (8.5-10.5); Carbon Dioxide 21 mmol/L (22-29); Chloride 106 mmol/L (98-107); Globulin 3.0 g/dL (1.3-4.6); Glucose 96 mg/dL (65-115); Osmolality Calculated 291 mOsm/kg (285-295); Potassium 4.3 mmol/L (3.5-5.1); Sodium 140 mmol/L (136-145); Total Protein 6.6 g/dL (6.6-8.7)
[2025-02-07] MEDS: iohexol 350 mg/mL 500 mL Btl (per mL) IV (15:13)
[2025-02-07 15:46] LABS: INR 0.96 (0.8-1.2); Partial Thromboplastin Time 27.2 SECONDS (23.9-36.7); Prothrombin Time 13.40 SECONDS (12.1-14.9)
[2025-02-07 15:56] VITALS: BP 123/62; PULSE 80; O2SAT 98
== END 2025-02-07 16:01 | disposition home or self-care (01) ==
PROVIDERS: Emergency Provider Physician Assistant; PCP Family Medicine
DX: H92.22 Otorrhagia, left ear (principal); Z79.82 Long term (current) use of aspirin; Z85.828 Personal history of other malignant neoplasm of skin
CPT/HCPCS: 36415; 70481; 80053; 85025; 85610; 85730; 99285